=== PATIENT | female | born 1985 | race Hispanic/Latino ===

== ENCOUNTER 2020-01-20 16:38 | Outpatient (CLI) | payer SELFPAY ==
[2020-01-20 17:30] LABS: Basophils Absolute Auto 0.1 K/mm3 (0.0-0.1); Basophils Percent Auto 0.5 % (0.2-1.2); Eosinophils Absolute Auto 0.2 K/mm3 (0-0.3); Hematocrit 38.7 % (37.0-47.0); Hemoglobin 13.4 g/dL (12.0-15.0); Immature Granulocyte Absolute 0.03 K/mm3 (0.00-0.031); Immature Granulocyte Percent A 0.3 % (0-0.5); Lymphocytes Absolute Auto 3.18 K/mm3 (0.9-3.2); Lymphocytes Percent Auto 29.9 % (18.3-44.2); Mean Corpuscular HGB Conc 34.6 g/dl (32-36); Mean Corpuscular Hemoglobin 29.8 pg (26-34); Mean Platelet Volume 9.7 fl (7.4-10.4); Monocytes Absolute Auto 0.5 K/mm3 (0.1-0.6); Monocytes Percent Auto 4.9 % (2.6-8.5); Neutrophils Absolute Auto 6.6 K/mm3 (1.3-6.7); Neutrophils Percent Auto 62.4 % (45.5-73.1); Platelet Count Result 330 k/mm3 (150-375); Red Cell Distribution Width 12.8 % (11.5-14.5); White Blood Count 10.6 K/mm3 (4.5-10.0)
[2020-01-20 17:32] LABS: Add Urine Microscopic? NO; Appearance Urine Clear (Clear); Bilirubin Urine Negative (Negative); Blood Urine Negative (Negative); Color Urine Yellow (Yellow); Glucose Urine UA Negative (Negative); Ketones Urine Negative (Negative); Leukocyte Esterase Ur Negative LEU/UL (Negative); Nitrate Urine Negative (Negative); Protein Urine Negative (Negative); Specific Grav Ur 1.021 (1.001-1.035); Urobilinogen Urine Negative mg/dL (<2.0)
[2020-01-20 17:43] LABS: Partial Thromboplastin Time 30.1 SECONDS (22.3-36.8)
[2020-01-20 17:44] LABS: Alanine Aminotransferase 192 U/L (4-35); Albumin Level 4.7 g/dL (3.5-5.1); Alkaline Phosphatase 99 U/L (38-126); Anion Gap 9 mmol/L (8-16); Aspartate Amino Transferase 113 U/L (14-36); Bilirubin,Total 0.5 mg/dL (0.2-1.3); Blood Urea Nitrogen 14 mg/dL (7-17); Calcium 9.3 mg/dL (8.4-10.2); Carbon Dioxide 27 mmol/L (22-30); Chloride 104 mmol/L (98-107); Estimated Glomerular Filt Rate > 60; Glucose 110 mg/dL (65-105); Potassium 4.1 mmol/L (3.4-5.0); Sodium 140 mmol/L (137-145)
[2020-01-20 17:51] LABS: Prealbumin 24.4 mg/dL (17.6-36.0)
[2020-01-20 18:24] LABS: Vitamin D 25 Hydroxy 30.2 ng/mL
[2020-01-20 18:25] LABS: HIV 1/2 Ab P24 Ag Result Negative (Negative)
[2020-01-20 19:17] LABS: Hemoglobin A1C 5.1 % (<5.7)
[2020-01-21 11:14] LABS: Hepatitis B Surface Antigen Negative (Negative)
[2020-01-21 11:19] LABS: HAV RESULT Negative (Negative); Hepatitis B Core IgM Result Negative (Negative)
[2020-01-21 11:31] LABS: Hepatitis C Virus Antibody Negative (Negative)
== END 2020-01-20 16:39 | disposition home or self-care (01) ==
PROVIDERS: PCP Internal Medicine Infectious Disease; Visit Provider Orthopaedic Surgery
DX: M47.813 Spondylosis without myelopathy or radiculopathy, cervicothoracic region (principal)
CPT/HCPCS: 36415; 80053; 80074; 81003; 82248; 82306; 83036; 84134; 85025; 85610; 85730; 86703; 87081; G0432

== ENCOUNTER → 2020-04-20 10:13 | Outpatient (CLI) | payer OTHER, SELFPAY ==
--- NOTE | ~2020-04-20 | XR_ITS ---
EXAMINATION: XR cervical spine min 6V EXAM DATE: 04/20/2020 10:52 INDICATION: spondylosis w/o myelopathy. TECHNIQUE: Cervical spine frontal, lateral, lateral swimmers, and open-mouth odontoid projections. C omparison is made to prior examination from 04/16/2018. FINDINGS: Interval anterior and interbody fusion C4-6. There is mild disc disease at C3-4. The verte bral bodies are aligned in the AP dimension. Mild cervical arthropathy. The odontoid process is intac t. The lateral masses of C1 line up with C2. Prevertebral soft tissue and pre-dens space are within normal limits. IMPRESSION: 1. Intact C4-6 cervical fusion. 2. Mild spondylosis. Reviewed, dictated and finalized at location A. 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
== END ==
PROVIDERS: Visit Provider Orthopaedic Surgery
DX: M47.813 Spondylosis without myelopathy or radiculopathy, cervicothoracic region (principal)
CPT/HCPCS: 72052

== ENCOUNTER 2023-04-14 17:54 | Emergency (ER) | payer SELFPAY ==
[2023-04-14 18:15] VITALS: BP 121/82; PULSE 80; RESP 18; TEMP 36.4; O2SAT 100
--- NOTE | 2023-04-14 20:12 | PC.NURSE ---
pt left before seeing provider, reports symptoms resolving and they would like to follow up at PCP appointment tomorrow
== END 2023-04-14 20:12 | disposition left against medical advice (07) ==
LOC: ANHED 20:35
DX: O26.892 Other specified pregnancy related conditions, second trimester (principal); R10.9 Unspecified abdominal pain; Z3A.16 16 weeks gestation of pregnancy
CPT/HCPCS: 99199

== ENCOUNTER 2024-02-09 18:19 | Emergency (ER) | payer BC, SELFPAY ==
[2024-02-09 18:24] VITALS: BP 147/101; PULSE 106; RESP 15; TEMP 36.6; O2SAT 100
[2024-02-09 18:34] VITALS: BP 137/96; PULSE 110; RESP 22; TEMP 36.5; O2SAT 99
--- NOTE | 2024-02-09 19:15 | ED.ABDPAIN ---
HPI - Abdominal Pain General Chief Complaint: Abdominal Pain Stated Complaint: abd pain Time Seen by Provider: 02/09/24 19:06 Source: patient and family Mode of arrival: ambulatory Limitations: language barrier (Patient is Trinidadian-speaking but refuses translation services when they were offered, prefers her son to translate though she does have reasonable Argentine ability herself) History of Present Illness HPI narrative: Patient presents with upper abdominal pain that started Friday approximately 5:00 a.m.. Family had been at a republican earlier in the evening and she had been eating tacos when she started having these symptoms upon awakening which also include nausea and diarrhea. She denies any vomiting only the sensation that she might. She has lost count of the number of time she has had diarrhea but denies it being bloody. No preceding constipation. Last bowel movement was just a few minutes ago while in the emergency department. She has tried Imodium ED and Pepto-Bismol. History of a Caesarean section but no other abdominal surgeries. Denies any prior issues like this before. 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 Denies any alcohol. She had taken a few tablets of ibuprofen but denies having taken a lot either while she was feeling sick or preceding that. Denies steroids and marijuana. No dysuria or hematuria although she does have some urinary urgency and frequency. No fevers but she was feeling chilled. Last oral intake was 5:00 p.m. on Friday and she does not have an appetite. Related Data Allergies Allergy/AdvReac Type Severity Reaction Status Date / Time No Known Allergies Allergy Verified 02/09/24 18:26 [facility] Surgical History Surgical History History of section Social History Social History (Updated 02/09/24 @ 19:21 by Saritha Nolasco MD) Social History: Argentine as a 2nd language (Trinidadian speaking) Alcohol intake: never Living arrangements: with family Exam Narrative: GENERAL: well-nourished, and in no acute distress. HEAD: Normocephalic, atraumatic. EYES: Non injected, non icteric ENT: Nares clear, no rhinorrhea or epistaxis. NECK: Supple. CHEST: Speaking in full sentences. No respiratory distress. HEART: Regular rate and rhythm. . ABDOMEN: Soft, nondistended. Mild epigastric tenderness to palpation without rigidity or guarding. Not peritoneal. EXTREMITIES: Normal range of motion. No lower extremity edema. SKIN: Warm, dry, no rash. NEURO: No focal deficits. Alert and oriented x3. PSYCH: Normal mood and affect. Course Vital Signs Vital signs: Vital Signs Temperature 97.8 F 02/09/24 18:24 Pulse Rate 106 H 02/09/24 18:24 Respiratory Rate 15 02/09/24 18:24 Blood Pressure 147/101 H 02/09/24 18:24 Pulse Oximetry 100 02/09/24 18:24 Oxygen Delivery Room Air 02/09/24 18:24 Temperature 97.7 F 02/09/24 18:34 Pulse Rate 95 02/09/24 22:47 Respiratory Rate 16 02/09/24 22:47 Blood Pressure 113/92 H 02/09/24 22:47 Pulse Oximetry 99 02/09/24 22:47 Oxygen Delivery Room Air 02/09/24 18:24 MDM - Abdominal Pain MDM Narrative Medical decision making narrative: Patient presents with epigastric abdominal pain, nausea, and diarrhea since Friday. In the emergency department she is afebrile with vital signs notable for tachycardia and hypertension both sustained on repeat assessment 10 minutes later. The differential for acute ( less than 14d) diarrhea includes infectious etiologies (viral, preformed toxins, toxins formed after colonization, invasive bacteria, and parasites), medications, inflammatory causes (IBD, radiation enteritis, ischemic colitis, diverticulitis), malabsorption, secretory causes, or motility disorders. Will give IV fluids for tachycardia in addition to Zofran and famotidine. Slight anion gap but within norm glucose not frankly acidotic. She also has mild hyperalbuminemia suspect this to be to degree of hemoconcentration and mild dehydration. test negative. Patient is concerned about the medications that were ordered given that she is currently breast-feeding her infant. RN discussed with pharmacist and there seems to be some conflicting data it in the literature. Will give prochlorperazine instead. Patient is reassessed at 9:10 p.m.. She states she is feeling good, better. Still has not been able to provide urine sample. Patient reassessed at 10:10 p.m. she continues to feel good and sometimes have not recurred. Still unable to provide a urine sample however I have low suspicion that this was a urinary tract infection. Will discharge with PO prochlorperazine and return precautions. Differential Diagnosis Differential diagnosis: Likely abdominal pain, constipation, gastroenteritis, pancreatitis and other (Gastritis, acute viral syndrome) Lab Data Attestation: I reviewed the patient's lab results. Lab results narrative: Viral swab negative Mild leukocytosis 02/09/24 19:25 02/09/24 19:25 Labs: Lab Results 02/09/24 02/09/24 02/09/24 Range/Units 19:25 20:08 20:31 WBC 11.1 H (4.5-10.0) K/mm3 RBC 5.05 (4.2-5.4) M/mm3 Hgb 15.0 (12.0-15.0) g/dL Hct 44.3 (37.0-47.0) % MCV 87.7 (80-100) fl MCH 29.7 (26-34) pg MCHC 33.9 (32-36) g/dl RDW 14.0 (11.5-14.5) % Plt Count 374 (150-375) k/mm3 MPV 10.3 (7.4-10.4) fl Immature Gran % (Auto) 0.4 (0-0.5) % Neut % (Auto) 61.6 (45.5-73.1) % Lymph % (Auto) 28.5 (18.3-44.2) % [place] % (Auto) 6.5 (2.6-8.5) % Eos % (Auto) 2.5 (0-4.4) % Baso % (Auto) 0.5 (0.2-1.2) % Lymph # (Auto) 3.17 (0.9-3.2) K/mm3 [place] # (Auto) 0.7 H (0.1-0.6) K/mm3 Eos # (Auto) 0.3 (0-0.3) K/mm3 Baso # (Auto) 0.1 (0.0-0.1) K/mm3 Abs Immat Gran (auto) 0.04 H (0.00-0.031) K/mm3 Absolute Neuts (auto) 6.9 H (1.3-6.7) K/mm3 Absolute Nucleated RBC 0.000 (0.0-0.012) K/mm3 Nucleated RBC % 0.0 (0.0-0.2) % Sodium 141 (137-145) mmol/L Potassium 3.9 (3.4-5.0) mmol/L Chloride 107 (98-107) mmol/L Carbon Dioxide 18 L (22-30) mmol/L Anion Gap 16 H (4-12) mmol/L BUN 15 (7-17) mg/dL Creatinine 1.00 (0.7-1.0) mg/dL Estim Creat Clear Calc 66 ml/min Estimated GFR > 60 (59 - ) Glucose 94 (65-110) mg/dL Calcium 9.9 (8.4-10.2) mg/dL Magnesium 2.1 (1.6-2.3) mg/dL Total Bilirubin 0.9 (0.2-1.3) mg/dL AST 34 (14-36) U/L ALT 28 (6-35) U/L Alkaline Phosphatase 126 (38-126) U/L Total Protein 10.0 H (6.3-8.2) g/dL Albumin 5.3 H (3.5-5.1) g/dL Lipase 85 (23-300) U/L POC Urine HCG, Qual Negative (Negative) Influenza A (RT-PCR) Negative (Negative) Influenza B (RT-PCR) Negative (Negative) SARS-CoV-2 RNA (RT-PCR) Negative (Negative) Discharge Plan Discharge Clinical Impression: Acute diarrhea, Leukocytosis, Hyperalbuminemia Patient Disposition: Home, Self-Care Condition: Stable Instructions: Antibiotic Form, Acute Diarrhea (ED), Leukocytosis (ED) Additional Instructions: Rest and maintain your hydration. This is likely a virus that just needs to run its course. Follow up with your primary care physician. If you do not have one the name of a doctor is listed below. Alternatively, there is a provider that speaks Trinidadian if you prefer though I do not know if they are accepting patients. Her name is Destiney Angela ([phone]). Return to the emergency department with any new or worsening symptoms. A medication has been prescribed that may help. . Patient Language: Trinidadian Prescriptions: New doxylamine-pyridoxine (vit B6) 10-10 mg tablet,delayed release (DR/EC) 1 tablet PO BID PRN (Reason: nausea and vomiting) Qty: 14 0RF Follow-up/Referrals: Jake Bishop MD [Physician] - (Family practice) UNKNOWN,DOCTOR [Primary Care Provider] - Stand Alone Forms: Work/School Release IP Time of Disposition: 22:13
--- NOTE | 2024-02-09 19:25 | PC.NURSE ---
pt educated on need for a urine sample- patient unable to urinate at this time.
[2024-02-09 19:34] LABS: Basophils Absolute Auto 0.1 K/mm3 (0.0-0.1); Basophils Percent Auto 0.5 % (0.2-1.2); Eosinophils Absolute Auto 0.3 K/mm3 (0-0.3); Eosinophils Percent Auto 2.5 % (0-4.4); Hematocrit 44.3 % (37.0-47.0); Immature Granulocyte Absolute 0.04 K/mm3 (0.00-0.031); Immature Granulocyte Percent A 0.4 % (0-0.5); Lymphocytes Absolute Auto 3.17 K/mm3 (0.9-3.2); Lymphocytes Percent Auto 28.5 % (18.3-44.2); Mean Corpuscular HGB Conc 33.9 g/dl (32-36); Mean Corpuscular Hemoglobin 29.7 pg (26-34); Mean Corpuscular Volume 87.7 fl (80-100); Mean Platelet Volume 10.3 fl (7.4-10.4); Monocytes Absolute Auto 0.7 K/mm3 (0.1-0.6); Monocytes Percent Auto 6.5 % (2.6-8.5); Neutrophils Absolute Auto 6.9 K/mm3 (1.3-6.7); Neutrophils Percent Auto 61.6 % (45.5-73.1); Platelet Count Result 374 k/mm3 (150-375); Red Blood Count 5.05 M/mm3 (4.2-5.4); White Blood Count 11.1 K/mm3 (4.5-10.0)
--- NOTE | 2024-02-09 20:01 | PC.NURSE ---
Pharmacy called to verify if famotidine and zofran can be administered to pt. b/c she is . Bernadette, pharmacist to call this RN back with answer. Administration delayed at this time.
[2024-02-09 20:02] LABS: Alanine Aminotransferase 28 U/L (6-35); Albumin Level 5.3 g/dL (3.5-5.1); Alkaline Phosphatase 126 U/L (38-126); Anion Gap 16 mmol/L (4-12); Aspartate Amino Transferase 34 U/L (14-36); Bilirubin,Total 0.9 mg/dL (0.2-1.3); Blood Urea Nitrogen 15 mg/dL (7-17); Calcium 9.9 mg/dL (8.4-10.2); Carbon Dioxide 18 mmol/L (22-30); Chloride 107 mmol/L (98-107); Estimated CRCL calculation 66 ml/min; Estimated Glomerular Filt Rate > 60; Glucose 94 mg/dL (65-110); Lipase 85 U/L (23-300); Magnesium 2.1 mg/dL (1.6-2.3); Potassium 3.9 mmol/L (3.4-5.0); Sodium 141 mmol/L (137-145)
[2024-02-09] MEDS: SODIUM CHLORIDE 0.9% IV 1,000 ML 999 ML IV CONT (20:04)
--- NOTE | 2024-02-09 20:17 | PC.NURSE ---
Addendum entered by Ava De La Rosa RN 02/09/24 20:26: Pharmacist called back. Contradicting literature on if pepcid and zofran are ok to administer to nursing mothers. Md Nolasco notified. No meds administered at this time. Original Note: Per lainey pharmacist, pepcid ok to administer. Pharmacist to call back on zofran administration.
[2024-02-09 20:33] LABS: BEDSIDEPREGUCG Negative (Negative)
--- NOTE | 2024-02-09 20:38 | PC.NURSE ---
Pt states she cannot give urine sample at this time. Fluids still infusing.
--- NOTE | 2024-02-09 20:45 | PC.NURSE ---
Pt able to provide urine sample but did not make enough urine in the cup to send down for ordered UA. MD Nolasco aware.
[2024-02-09 20:49] LABS: Influenza A QL RT-PCR Negative (Negative); Influenza B QL RT-PCR Negative (Negative); SARS-CoV-2 RNA PCR Negative (Negative)
[2024-02-09] MEDS: PROCHLORPERAZINE EDISYLATE 10 MG/2 ML VIAL IV PUSH (20:51)
[2024-02-09 22:47] VITALS: BP 113/92; PULSE 95; RESP 16; O2SAT 99
== END 2024-02-09 22:54 | disposition home or self-care (01) ==
PROVIDERS: Emergency Provider Student in an Organized Health Care Education/Training Program
DX: R19.7 Diarrhea, unspecified (principal); D72.829 Elevated white blood cell count, unspecified; E88.09 Other disorders of plasma-protein metabolism, not elsewhere classified
CPT/HCPCS: 36415; 80053; 81025; 83690; 83735; 85025; 87636; 96361; 96374; 99284; J0780; J7030

== ENCOUNTER 2024-09-01 08:06 | Emergency (ER) | payer SELFPAY ==
--- NOTE | 2024-09-01 08:09 | ED_ITS ---
HPI - General Adult General Chief complaint: Abdominal Pain Stated complaint: pain in abdomen Time Seen by Provider: 09/01/24 08:08 History of Present Illness HPI narrative: Patient is a 39-year-old female presented complaint of epigastric abdominal pain. Pain began 2 days ago. Pain is worse after eating. Patient reports single episode of nonbloody emesis this morning. No previous abdominal surgeries. No history of similar pain. No additional complaints. Related Data Home Medications ?Medication ?Instructions ?Recorded ?Confirmed ?Last Taken ?Type No Home Medications 09/01/24 09/01/24 Unknown History Allergies Allergy/AdvReac Type Severity Reaction Status Date / Time No Known Allergies Allergy Verified 09/01/24 08:20 Review of Systems Review of Systems: CONSTITUTIONAL: Denies body aches, fever, chills, or sweats. EYES: Denies visual changes, redness, or discharge. ENT: Denies rhinorrhea, congestion, sore throat, or otalgia. CARDIOVASCULAR: Denies chest pain, palpitations, or edema. RESPIRATORY: Denies cough or dyspnea. GASTROINTESTINAL: Reports epigastric abdominal pain, nausea, vomiting, denies diarrhea. GENITOURINARY: Denies dysuria or hematuria. SKIN: Denies rash, itching, or wounds. MUSCULOSKELETAL: Denies back pain, joint pain, or myalgia. NEUROLOGIC: Denies headache, numbness, tingling, or weakness. PSYCH: Denies depression or anxiety. All systems reviewed & are unremarkable except as noted in HPI and below PMFSH Surgical History Surgical History History of section Social History Social History Social History: Danish as a 2nd language (Azeri speaking) Alcohol intake: never Living arrangements: with family Exam 2 Narrative: GENERAL: Well-appearing, well-nourished, and in no acute distress. HEAD: Normocephalic, atraumatic. EYES: EOMI. No redness or drainage. Conjunctivae normal. ENT: Mucous membranes pink and moist. Nares clear. No rhinorrhea. TMs normal bilaterally. Throat normal. Uvula midline. NECK: Normal AROM. Supple. No lymphadenopathy. CHEST: No respiratory distress. Clear to auscultation. HEART: Regular rate and rhythm. No murmur appreciated. Normal peripheral pulses. MUSCULOSKELETAL: No bony tenderness. EXTREMITIES: Normal range of motion. No edema. SKIN: Warm, dry, no rash. Capillary refill normal. Normal skin turgor. NEURO: No focal deficits. Alert and oriented x3. Gait steady. PSYCH: Normal affect. No signs of depression or anxiety. Const: Nutritional Appearance: well nourished Orientation/consciousness: patient oriented x3 Limitations: no limitations GI: GI Palp: Yes Soft to palpation, Yes Tenderness to palpation present (GI) ( epigastric), No Guarding due to palpation present (GI), No Rigid due to palpation and No Rebound tenderness present Auscultation: normal bowel sounds Course Course Level of Care: Express Care Visit Vital Signs Vital signs: Vital Signs Temperature 87.8 F L 09/01/24 08:19 Pulse Rate 69 09/01/24 08:19 Respiratory Rate 16 09/01/24 08:19 Blood Pressure 122/87 09/01/24 08:19 Pulse Oximetry 100 09/01/24 08:19 Oxygen Delivery Room Air 09/01/24 08:19 Temperature 87.8 F L 09/01/24 08:19 Pulse Rate 69 09/01/24 08:19 Respiratory Rate 16 09/01/24 08:19 Blood Pressure 122/87 09/01/24 08:19 Pulse Oximetry 100 09/01/24 08:19 Oxygen Delivery Room Air 09/01/24 08:19 Transfer Transfered to: [place] Transportation: Other ( POV) Transfer rationale: access higher level of care, further diagnostic workup. Accepting physician: Ricardo Rodgers comments: Aware of NPO status, go straight to ER Medical Decision Making Medical Records Medical records reviewed: Yes I reviewed the external patient's medical records. Vital Signs Vital Signs: Vital Signs Temperature 87.8 F L 09/01/24 08:19 Pulse Rate 69 09/01/24 08:19 Respiratory Rate 16 09/01/24 08:19 Blood Pressure 122/87 09/01/24 08:19 Pulse Oximetry 100 09/01/24 08:19 Oxygen Delivery Room Air 09/01/24 08:19 Temperature 87.8 F L 09/01/24 08:19 Pulse Rate 69 09/01/24 08:19 Respiratory Rate 16 09/01/24 08:19 Blood Pressure 122/87 09/01/24 08:19 Pulse Oximetry 100 09/01/24 08:19 Oxygen Delivery Room Air 09/01/24 08:19 Discharge Plan Discharge Clinical Impression: Acute epigastric pain Patient Disposition: Acute Care Hospital Condition: Stable Patient Language: Azeri Prescriptions: No Action No Home Medications Follow-up/Referrals: PHYSICIAN,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
[2024-09-01 08:19] VITALS: BP 122/87; PULSE 69; RESP 16; TEMP 36.4; O2SAT 100
== END 2024-09-01 08:34 | disposition short-term general hospital (02) ==
PROVIDERS: Emergency Provider Registered Nurse
DX: R10.13 Epigastric pain (principal)
CPT/HCPCS: 99212; G0463

== ENCOUNTER 2024-09-01 08:52 | Emergency (ER) | payer SELFPAY ==
--- OUTSIDE RECORDS SUMMARY | 2024-09-01 09:00 | XMS_ITS | Clinical Summary ---
Author Organization [facility] Address [address] [place] [address] Care Team Providers Care Cover Maker Name Role Phone [facility], [facility] Primary Care Pr ovider Source Comments [facility],non-owned Affiliates and Associated Physician Practices is amultiple site organization consisting of ambulatory clinics and hospital sitesin [place], [place], [place] and [place]. This disclosure is being madepursuant to the Care Everywhere program and may not contain all information available regarding this patient. Last updated 17.[facility] Allergies No known active allergies Medications * Be aware that medications may not be up to date on this document. Alwaysverify current medications with the patient. acetaminophen (Tylenol) 500 MG capsule Take 2 (two) capsules by mouth every 6 hours as needed for Fever or Pain 60 capsule 1 4 Active Additional Information Patient not taking.Reported on 10/03/2023 polyethylene glycol 3350 (Miralax) 17 GM/SCOOP powder Take 17 (seventeen) g by mouth once daily 119 g 4 Active Additional Information Patient not taking.Reported on 09/08/2023 ibuprofen (Motrin) 600 MG tablet Take 1 (one) tablet by mouth every 6 hours as needed for Pain 50 tablet 1 4 Active Additional Information Patient not taking.Reported on 10/03/2023 docusate sodium (Colace) 100 MG capsule Take 1 (one) capsule by mouth once daily 50 capsule 1 4 Active Additional Information Patient not taking.Reported on 09/08/2023 NIFEdipine CR osmotic 24hr (Adalat CC) 60 MG tablet Take 1 (one) tablet by mouth once daily 30 tablet 1 4 Active ibuprofen (Motrin) 600 MG tablet Take 1 (one) tablet by mouth every 6 hours as needed for Pain 40 tablet 1 4 Active Additional Information Patient not taking.Reported on 10/03/2023 docusate sodium (Colace) 100 MG capsule Take 1 (one) capsule by mouth 2 times daily 60 capsule 1 4 Active Additional Information Patient not taking.Reported on 09/08/2023 Active Problems Patient Care Coordination No te Formatting of this note migh t be different from the original. [employer] form completed. Diapers given. 07/22/2023, 08/06/23, 10/03/23 Problem Noted Date Diagnosed Date Chronic hypertension during , antepartu m 09/01/2023 Encounter for supervision of other normal in third trimester 08/21/2023 Otitis interna, left 07/25/2023 Overview (08/06/2023): L ear pain x 4 days L TM erythematous Amoxicillin x 10 days: Completed 08/06/23: Pain has resolved. Still having some noises in her ear when she bends over. Recommended either Zyrtec or Claritin daily. Assessment & Plan (08/06/2023 9:17 AM CDT): Pain has resolved. Still having some noises in her ear when she bends over. Recommended either Zyrtec or Claritin daily. Supervision of normal 07/25/2023 Overview (08/21/2023): Datinw US Labs: A-/I/-/-, HepC: NR SMA carrier screening: not collected Cystic Fibrosis: negative Gc/Chl/trich: -/-/- Hgb Electrophoresis: negative Urine Cx: negative NIPT: LR, female PAP: 02/19/23 NILM, HPV neg EPDS: 0 ASA: Rx sent 03/19/23 Anatomy scheduled 18-20 weeks 05/28/23 GCT: 101 3rd trimester: H/H/Ptl/HIV/Syphilis: 11.5/33.3/264/nr/nr Tdap given 07/21 Flu Vaccine, COVID booster: received 02/19/23 Rhogam given 07/22/23 GBS at 36 weeks MOC: undecided, continue to discuss [email or web address] handout provided in korean MOF: breast Discussed how to obtain breast pump through insurance MOD: desires TOLAC Assessment & Plan (08/21/2023 3:29 PM CDT): [email or web address] handout provided Discussed calling her insurance to obtain breast pump sooner than later, due to it taking some time. Assessment & Plan (08/06/2023 9:18 AM CDT): 3rd trimester labs reviewed and WNL UTI (urinary tract infection ) during , unspecified trimester 04/15/2023 Overview (05/27/2023): S/p Amoxicillin x7 days DIEGO 04/15 negative Assessment & Plan (04/15/2023 3:59 PM ASSOCIATE AUTOMATION ENGINEER): S/p antibiotics DIEGO sent today AMA (advanced maternal age) multigravida 35+ Overview (08/21/2023): AMA NIPT LR Taking ASA 162mg QD 08/06/23: Reports compliance with LD ASA Plan for Testing: Weekly BPP & NST starting at 34 weeks 08/21/23: Reports taking LD ASA daily Assessment & Plan (08/21/2023 3:27 PM CDT): Taking LD ASA daily Assessment & Plan (08/06/2023 9:21 AM CDT): Reports compliance with LD ASA Plan for Testing: Weekly BPP & NST starting at 34 weeks Assessment & Plan (04/15/2023 3:59 PM ASSOCIATE AUTOMATION ENGINEER): NIPT LR LD ASA rx resent Assessment & Plan (03/19/2023 12:26 PM ASSOCIATE AUTOMATION ENGINEER): 1. NIPT collected 03/19/23 2. ASA 162mg QD to be started at 12w, Rx'ed on 03/19/23 Spondylosis 03/19/2023 Overview (03/19/2023): 1. Spondylosis s/p diskectomy 1. Done at [facility] in 2019 2. Anterior cervical diskectomy and fusion cervical 4-5, 5-6 3. Should not be issue for epidural, however may need anesthesia consult in case of need for general anesthesia Subchorionic hematoma in first trimester 023 Overview (04/15/2023): 02/24/23: A subchorionic hemorrhage is present measuring 0.5 x 2.7 x 0.6 cm. 03/19/23: Denies vaginal bleeding 04/15/23: denies VB Assessment & Plan (04/15/2023 3:59 PM ASSOCIATE AUTOMATION ENGINEER): Denies VB Assessment & Plan (03/19/2023 12:24 PM ASSOCIATE AUTOMATION ENGINEER): Denies vaginal bleeding Positive urine drug screen 03/19/2023 Overview (03/19/2023): Cocaine + @ NOB. 03/19/23: Pt denies Cocaine Use. Pt educated on Risks of use including abruption, hypertension and . Assessment & Plan (03/19/2023 12:19 PM ASSOCIATE AUTOMATION ENGINEER): 03/19/23: Pt denies Cocaine Use. Pt educated on Risks of use including abruption, hypertension and . H/O forceps delivery in prior , current ly 05/09/2014 Overview (03/19/2023): 1. H/o operative delivery 1. G2 - forceps delivery for poor maternal effort, @ 39w4d Language barrier 05/09/2014 Overview (05/09/2014): Cape Verdean speaking Chronic hypertension complic ating or reason for care during 05/02/2014 Overview (08/21/2023): G2: PP Hypertension. Was instructed to take an antihypertensive, but pt declined medication. - Baseline PreE: CBC/CMP: WNL at NOB - 24hr urine: TLTC Taking LDASA testing not indicated in uncomplicated cHTN w/o meds 08/06/23: Normotensive and Assymptomtic 08/21/23: Sent to [facility] for Pre-E Work-up due to b/p's of 164/112 & 153/100 Assessment & Plan (08/21/2023 3:27 PM CDT): Sent to [facility] for Pre-E Work-up due to b/p's of 164/112 & 153/100 Assessment & Plan (08/06/2023 9:21 AM CDT): Normotensive and Assymptomtic Assessment & Plan (04/15/2023 4:00 PM ASSOCIATE AUTOMATION ENGINEER): -Normotensive -24 hour urine supplies provided today Assessment & Plan (03/19/2023 12:16 PM ASSOCIATE AUTOMATION ENGINEER): - Baseline PreE: CBC/CMP: WNL at NOB - Please provide patient with 24 hour urine collection supplies at next visit H/O: 08/20/2011 Overview (07/25/2023): 1. H/o CS x1 1. G1- pLTCS in 2006 for AOD at 6cm @ 40w 2. Successful x2 - @ [facility] 3. Done in [place], [place] - [facility]. Operative note (under media tab) wnl 4. Desires TOLAC, s/p counseling Rh negative state in antepartum period 2 Overview (07/25/2023): 1. Rh negative 1. Rhogam given 02/24/23 in the E.D. due to vaginal spotting 2. Rhogam given 07/22/23 at 28 weeks 3. Evaluate need for Rhogam PP Resolved Problems Problem Noted Date Diagnosed Date Resolved Date Hypertensive disorder 06/28/2023 06/28/20232023 Neuropathy 06/28/2023 06/28/2023 07/25/2023 Rhesus isoimmunization affecting 06/28/2023 06/28/2023 07/25/2023 Encounter for supervision of low-risk first in first trimester 03/19/2023 06/28/2023 Overview (05/27/2023): 1. Datinw US 2. Labs: A-/Imm/nr/-/-, HepC:nr 3. SMA carrier screening: not collected 4. Cystic Fibrosis: negative 5. Gc/Chl/trich: -/-/- 6. Hgb Electrophoresis: negative 7. Urine Cx: negative 8. NIPT: LR, female 9. PAP: 02/19/23 NILM, HPV neg 10. EPDS: 0 11. ASA: Rx sent 03/19/23 12. Anatomy scheduled 18-20 weeks 05/28/23 13. GCT/CBC/HIV/Syphilis at 28 weeks 14. Tdap after 28 weeks: 15. Flu Vaccine, COVID booster: received 02/19/23 16. Rhogam at 28 weeks 17. GBS at 36 weeks: 18. MOC: TBD 19. MOF: TBD 20. MOD: desires TOLAC Assessment & Plan (04/15/2023 4:01 PM ASSOCIATE AUTOMATION ENGINEER): -PNC up to date -CC: vaginal discharge. Reviewed normal physiologic changes in . Reviewed vulvar care guidelines. Encouraged to seek evaluation if odor or irritation develops. Assessment & Plan (03/19/2023 12:29 PM ASSOCIATE AUTOMATION ENGINEER): NIPT not collected Cyst of right ovary 03/19/2023 07/25/19 Overview (03/19/2023): 02/19/23: The right ovary appears normal and contains a simple cyst consistent with a corpus luteal cyst. Abnormal liver function 12/12/2021 06/28/2023 0408/2023 Nonalcoholic fatty liver 05/29/2020 06/28/2023 Chwbd-3-vmnwdsdtujl deficiency 05/21/2020 06/28/2023 07/25/2023 Overview (06/28/2023): seeing wave solder offbearer Obstructive sleep apnea syndrome 05/21/2020 06/28/1907/25/2023 Overview (06/28/2023): seeing wave solder offbearer Pulmonary hypertension 05/21/2020 06/28/202307/24 Overview (06/28/2023): getting echo per wave solder offbearer Cervical spine instability 01/31/2020 1 05/20/2022 Mixed hyperlipidemia 08/03/2019 06/28/2023 024 Steatosis of liver 01/05/2018 06/28/2023 Fibroid uterus 05/02/2014 07/25/2023 Supervision of other high-risk 08/20/2011 03/19/2023 Overview (02/05/2015): A-/I/-/-, NR Pap normal 09/05/13 GC/CT neg S/p flu GCT: 109 GBS neg 08/18 Immunizations Immunization Administration Dates Next Due COVID PFIZER 12+YR 30MCG/0.3mL 02/19/2023 INFLUENZA VACCINE, QUADR. (F LUZONE; FLULAVAL; FLUARIX; AFLURIA QUADRIVALENT; 6MO+), 0.5 ML (IIV4) 02/19/2023 Rho D Immune Globulin 08/28/2023, 024,02/24/2023,2014,09/08/2011 TDAP (7yrs+) 07/22/2023,06/20/2014 Family History Medical History Relation Name Comments Diabetes Other Twins Other Relation Name Status Comments Other Social History Tobacco Use Types Packs/Day Years Used Date Smoking Tobacco: Never Smokeless Tobacco: Never Tobacco Cessation:Counseling Given: Yes Alcohol Use Standard Drinks/Week Comments No 0 (1 standard drink = 0.6 oz pur e alcohol) AUDIT-C Answer Date Recorded Q1: How often do you have a drink containing alcohol? Never 08/26/2023 Q2: How many drinks containi ng alcohol do you have on a typical day when you are drinking? Patient does not drink Q3: How often do you have si x or more drinks on one occasion? Never 08/26/2023 Overall Financial Resource Strain (CARDIA) Answe r Date Recorded How hard is it for you to pa y for the very basics like food, housing, medical care, and heating? Somewhat hard 10/03/2023 [facility] of Occupat ional Health - Occupational Stress Questionnaire Answer Date Recorded Do you feel stress - tense, restless, nervous, or anxious, or unable to sleep at night because your mind is troubled all the time - these days? Only a little 10/03/2023 Hunger Vital Sign Answer Date Recorded Within the past 12 months, y ou worried that your food would run out before you got the money to buy more. Sometimes true Within the past 12 months, t he food you bought just didn't last and you didn't have money to get more. Sometimes true 07/2023 PRAPARE - Transportation Answer Date Re corded In the past 12 months, has l ack of transportation kept you from medical appointments or from getting medications? No 07/2023 In the past 12 months, has l ack of transportation kept you from meetings, work, or from getting things needed for daily living? No 10/03/2023 Housing Stability Vital Sign Answer William e Recorded In the last 12 months, was t here a time when you were not able to pay the mortgage or rent on time? No 10/03/2023 In the last 12 months, how many places have you lived? 1 10/03/2023 In the last 12 months, was t here a time when you did not have a steady place to sleep or slept in a halfway (including now)? Yes 10/03/2023 Rowe Depression Scale Answer Date Recorded Rowe Depression Scale Total 0 10/03/2023 The thought of harming myself has occurred to me . Never 10/03/2023 Comments No Sex and Gender Information Value Date Recorded Sex Assigned at Female 09/01/2023 7:08 PM CDT Legal Sex Female 7:02 PM ASSOCIATE AUTOMATION ENGINEER Gender Identity Not on file Sexual Orientation Not on file Last Filed Vital Signs Vital Sign Reading Time Taken Comments Blood Pressure 129/86 10/03/2023 12:48 PM CDT Pulse 75 10/03/2023 12:48 PM CDT Temperature 36.6 C (97.8 F) 09/03/2023 4:00 PM CDT Respiratory Rate 20 09/03/2023 4:00 PM CDT Oxygen Saturation 100% 09/03/2023 4:00 PM CDT Inhaled Oxygen Concentration - - Weight 88 kg (194 lb) 10/03/2023 12:48 PM CDT Height 152.4 cm (5') 08/21/2023 3:45 PM CDT Body Mass Index 37.89 08/21/2023 3:45 PM CDT Plan of Treatment Upcoming Encounters Date Type Department Care Team (Late st Contact Info) Description 10/04/2024 2:15 PM CDT Appointment [facility] MATERNAL/ EVALUATION UNIT [address] [place] [address] Health Maintenance Due Date Last Done Comments HEPATITIS B VACCINE (1 of 3 - 19+ 3-dose series) 2005 COVID-19 VACCINE ( - season) 2023 02/19/2023, 10/10/2020, 09/19/2020 DEPRESSION SCREENING 03/31/2024 10/03/2023 INFLUENZA VACCINE (Season Ended) 2024 02/19/2023, 12/12/2021, 01/13/2018, Additional history exists PAP with HPV 02/20/2028 02/19/2023 DTAP/TDAP/TD VACCINES (3 - Td or Tdap) 07/21/2033 07/22/2023, 06/20/2014 ZOSTER VACCINE (1 of 2) 2036 HEPATITIS C SCREENING Completed 02/19/2023 HIV SCREENING Completed 07/22/2023, 02/19/2023 HIB VACCINE Aged Out No longer eligi ble based on patient's age to complete this topic HPV VACCINE Aged Out No longer eligi ble based on patient's age to complete this topic MENINGOCOCCAL (Group B) VACCINE SHARED DECISION-MAKING Aged Out No longer eligible based on patient's age to complete this topic MENINGOCOCCAL GROUPS A/C/Y/W VACCINE Aged Out No longer eligible based on patient's age to complete this topic PNEUMOCOCCAL VACCINE Aged Out No long er eligible based on patient's age to complete this topic Medical Devices Implanted Type Area Watch Commander Device Identifier Shelf Expiration Date Model / Serial / Lot Graft Bone 1-4mm 15ml Crsh Fsh Frzn Canc Implanted:Qty : 1 on 01/31/2020 by Gurjit Munguia MD at [facility] N/A: Spine Cervical [employer] 07/08/2022 [id number] / / [id number] Kit Bngf 20mm 12mm Infs 2xs Spne Rhbmp-2 Implanted:Qty : 1 on 01/31/2020 by Gurjit Munguia MD at [facility] N/A: Spine Cervical Medtronic Sofamor [employer] 11/28/2020 [id number] / / [id number] Sub Bngf Progenix Dbm Bvn Clgn Ptty 1ml Implanted:Qty : 1 on 01/31/2020 by Gurjit Munguia MD at [facility] N/A: Spine Cervical Spinal [employer]raft [employer] 10/09/2020 [id number] / / [id number] F3d Cervical 14.5mm X12mm Implanted:Qty : 2 on 01/31/2020 by Gurjit Munguia MD at [facility] N/A: Spine Cervical [employer] 06/13/2024 [id number] / / [id number] Screw 4mm 15mm Slf-Tap Va Spne Crv Ant Implanted:Qty : 2 on 01/31/2020 by Gurjit Mnuguia MD at [facility] N/A: Spine Cervical Medtronic Sofamor [employer] [id number] / / Screw 4mm 14mm Slf-Tap Va Spne Crv Ant Implanted:Qty : 4 on 01/31/2020 by Gurjit Munguia MD at [facility] N/A: Spine Cervical Medtronic Sofamor [employer] [id number] / / Plate Lck Spne Crv Ant 40mm Atlnts Implanted:Qty : 1 on 01/31/2020 by Gurjit Munguia MD at [facility] N/A: Spine Cervical Medtronic Sofamor [employer]ane[employer] [id number] / / Procedures Procedure Name Priority Date/Time Associated Diagnosis Comments HIV-1 HIV-2 ANTIBODY + HIV P24 AG PANEL Routine 07/22/2023 4:09 PM CDT 28 weeks gestation of PAP IG LB+HPV APTIMA Routine 02/19/2023 9:22 AM ASSOCIATE AUTOMATION ENGINEER H/O: HEPATITIS C ANTIBODY Routine 02/19/2023 9:21 AM ASSOCIATE AUTOMATION ENGINEER H/O: from Last 3 Months or Most Recently Relevant to Health Maintenance Results * HIV-1 HIV-2 ANTIBODY + HIV P24 AG PANEL (07/22/2023 4:09 PM CDT) HIV1/2 Ab + P24 Ag Non Reactive Non Reactive 07/22/2023 5:03 PM CDT [facility] Blood BLOOD SPECIMEN / Unknown Venipuncture / Unknown 07/22/2023 4:09 PM CDT 07/22/2023 4:19 PM CDT Narrative [facility] - 07/22/2023 5:03 PM CDT No Laboratory evidence of HIV infection. Sadia Jewell MD LAB - CHEMISTRY ORDERABLES Final Result [facility] [address] [place] [address] * PAP IG LB+HPV APTIMA (02/19/2023 9:22 AM ASSOCIATE AUTOMATION ENGINEER) Diagnosis Comment 02/24/2023 11:06 PM ASSOCIATE AUTOMATION ENGINEER [facility] ([facility]) Comment:NEGATIVE FOR INTRAEP ITHELIAL LESION OR MALIGNANCY. Specimen Adequacy Comment 023 11:06 PM ASSOCIATE AUTOMATION ENGINEER [facility] ([facility]) Comment: Satisfactory for evaluation. Endocervical and/or squamous metaplastic cells (endocervical component) are present. Performed by Comment 02/24/2023 11:06 PM ASSOCIATE AUTOMATION ENGINEER [facility] ([facility]) Comment:Yue Horne Cytotec hnologist (ASCP) Comment . 02/24/2023 11:06 PM ASSOCIATE AUTOMATION ENGINEER [facility] ([facility]) Note Comment 02/24/2023 11:06 PM ASSOCIATE AUTOMATION ENGINEER [facility] ([facility]) Comment: The Pap smear is a screening test designed to aid in the detection of premalignant and malignant conditions of the uterine cervix. It is not a diagnostic procedure and should not be used as the sole means of detecting cervical cancer. Both false-positive and false-negative reports do occur. IGLBP CPT Code Automation Comment 02/24/2023 11:06 PM ASSOCIATE AUTOMATION ENGINEER [facility] ([facility]) Comment: This liquid based ThinPrep(R) pap test was screened with the use of an image guided system. Human papillomavirus Aptima Negative Negative 02/24/2023 11:06 PM [facility] ([facility]) Comment: This nucleic acid amplification test detects fourteen high-risk HPV types (16,18,31,33,35,39,45,51,52,56,58,59,66,68) without differentiation. Pathology/Cytolo gy PART OF UTERINE CERVIX / Unknown Collection / Unknown 02/19/2023 9:22 AM ASSOCIATE AUTOMATION ENGINEER 02/19/2023 10:14 AM ASSOCIATE AUTOMATION ENGINEER Narrative [facility] ([facility]) - 02/24/2023 11:06 PM ASSOCIATE AUTOMATION ENGINEER Performed at: 01 - [facility] [employer] [address] [place] [id number] [address] Engineer Freight: Carlos Alonso MD, Phone: [phone] Performed at: [address] [id number] Road Engineer Freight: Emiliana Watson MD, Phone: [phone] Performed at: 03 - [address] [id number] Road Engineer Freight: Emiliana Watson MD, Phone: [phone] Specimen Comment: No. of containers..01 ThinPrep Vial Israel Choudhury MD LAB - PATHOLOGY/CYTOLOGY ORDERAB LES Final Result [facility] ([facility]) [address] [place] [address] * HEPATITIS C ANTIBODY (02/19/2023 9:21 AM ASSOCIATE AUTOMATION ENGINEER) HCV Antibody Screen Non Reactive Non Reactive 02/19/2023 10:57 AM ASSOCIATE AUTOMATION ENGINEER [facility] Blood BLOOD SPECIMEN / Unknown Venipuncture / Unknown 02/19/2023 9:21 AM ASSOCIATE AUTOMATION ENGINEER 02/19/2023 9:49 AM ASSOCIATE AUTOMATION ENGINEER Narrative [facility] - 02/19/2023 10:57 AM ASSOCIATE AUTOMATION ENGINEER Non Reactive - Antibodies to Hepatitis C virus (HCV) were not detected, result does not exclude early acute HCV infection. Israel Choudhury MD LAB - CHEMISTRY ORDERABLES Final Result [facility] [address] [place] [address] from Last 3 Months or Most Recently Relevant to Health Maintenance Insurance [facility] [place] [address] * Guarantor: PASTORA LENZ Account Type Relation to Patient Date of Phone Billing Address Personal/Family [address] [place] [address] Advance Directives * Full Code (Latest Code Status on File) Date Activated Date Inactivated Comments 08/26/2023 7:53 PM 08/29/2023 1:31 PM * Full Code Date Activated Date Inactivated Comments 08/21/2023 5:44 PM 08/26/2023 7:53 PM * Full Code Date Activated Date Inactivated Comments 01/31/2020 12:16 PM 01/31/2020 7:21 PM * Full Code Date Activated Date Inactivated Comments 09/07/2014 4:08 PM 09/09/2014 3:34 PM * FULL RESUSCITATION Date Activated Date Inactivated Comments 09/07/2011 10:44 AM 09/10/2011 2:21 AM Care Teams Cover Maker Relationship Specialty Start Date End Date [facility] [address] [place] [address] PCP - General Family Medicine 02/01/23
--- OUTSIDE RECORDS SUMMARY | 2024-09-01 09:00 | XMS_ITS | Data Portability ---
Author Organization [facility] Address [address] [place] [address] Care Team Providers Care Gl[facility]ier Stained Glass Name Role Phone HORACIO TUTTLE Primary Care Provider Assessment Encounter Date Assessment Date Assessment LastModified by Organization Details LastModified Time 10/18/2021 10/18/2021 this is a 36 yea r old RHD female who presents with a comminuted fracture of the right radial head with displacement greater than 2mm. Based on the xrays, the fracture is in greater than 3 different pieces and at that point we would likely be discussing a radial head arthroplasty. She needs a CT scan of the elbow for further classification of the fracture so she can get surgery due to the displacement of the fracture and her block to motion. I do not perform this particular procedure, as such, I will refer the patient to ortho at another hospital for definitive treatment. [email or web address] Not available 10/25/2021 14:27:15 Plan of Treatment Reminders Order Date Submit Date Provider Last Modified By Organization Details Last Modified Time Details Appointments None recorded. Lab test, urine 2022 023 daniel In-Office Order, Internal Use Only DO Not Attach Compendium DO Not Attach Compendium, Do Not Delete/merge, [id number] 3 13:04:22 lipid panel, serum 2021 022 [facility], [address] [place] [address], [address], [place], [address], 08:20:23 TSH, ultra-sensi tive, serum 2021 022 [facility], [address], [address], [place], [address], 2 08:20:24 CBC w/ auto diff 2021 [facility], [address], [address], [place], [address], 2 08:20:22 CMP, serum or plasma 2021 [facility], [address], [address], [place], [address], 2 08:20:22 LAVONNE (antinuclea r antibodies) panel, serum 2020 [facility] ([facility] [address] [place], [address], 1 17:08:46 Referral orthopedic surgeon referral - comminuted right radial head fracture with block to ROM 2021 [facility], [address] [place] [address], [address] [place] [address], [place], [address], 3 12:23:12 Procedures None recorded. Surgeries None recorded. Imaging None recorded. Medication Orders 28 mg iron-800 mcg tablet 2022 023 [facility], [address] [place] [address], [id number], 3 13:38:39 atorvastati n 20 mg tablet 2021 [facility], [address] [place] [address], [id number], 2 12:41:19 chlorthalid one 25 mg tablet 2021 [facility], [address] [place], [place], [id number], 12:41:20 Patient TargetsNo targets recorded. Patient Instructions Encounter Date Encounter Id Patient Instructions Last Modified By Organization Details Last Modified Time 12/12/2021 [id number] vacuna contra la influenza (gripe): instrucciones de cuidado - [influenza (flu) vaccine: care instructions] [email or web address] Not available 12/12/2021 12:35:36 Uncontrolled Hypertension potential risks, heart attack, , stroke, kidney failure etc. Hypertension is the silent Killer Take your Hypertension medication daily keep appointments stop concentrated sugars--follow 1500 meal plan exercise 50-60 minutes daily on most days see eye doctor once a year see dentist every 6 months Avoid all breads, potatoes, cereal, pasta, rice, margarine, refined sugars, milk yogurt, ice cream, juices, soda (including diet), beer, and manmade or manufactured desserts. Enjoy steak, fish, chicken (no skin), pork, butter, vegetables, beans, nuts, whole eggs, cheese (low fat or skim), cream in your coffee. [email or web address] Not available 12/12/2021 12:32:20 01/29/2023 [id number] aprenda acerca d el peso saludable - [learning about healthy weight] [email or web address] Not available 01/29/2023 13:04:20 ndice de masa corporal: instrucciones de cuidado - [body mass index: care instructions] [email or web address] Not available 01/29/2023 13:04:20 ectopic symptoms and follow up start vitamins Nutritional guidelines No drugs, alcohol, medications Any vaginal bleeding with severe abdominal cramping to E/R Immediately [email or web address] Not available 01/29/2023 13:03:06 Reason for Referral Orthopedic Surgeon Referral for Closed fracture of head of right radius Right comminuted radial head fracture with block to motion comminuted right radial head fracture with block to ROM Referring Physician: Aayush Woodward, Orthopedic Surgery, Encounter Date: 10/18/2021 Results Created Date Observation Date Name Description Value Unit Range Abnormal Flag Note LastModifiedBy Organization Detail LastModifiedTime 04/27/19 21 04/27/2020 PT/IN R PT 10.0 secon ds 9.3-11 .1 Not Available [facility] (Lab) [address], [place], [address], 04/27/2020 19:27:41 04/27/19 21 04/27/2020 PT/IN R INR 1.0 0.4-2. 0 Not Available [facility] (Lab) [address], [place], [address], 04/27/2020 19:27:41 04/27/19 21 04/27/2020 PT/IN R [email or web address] Please note Refere nce Range has change d Not Available [facility] (Lab) [address], [place], [address], 04/27/2020 19:27:41 04/27/19 21 04/27/2020 CBC w/ auto diff WBC 9.4 K/uL 3.4-10 .8 Not Available [facility] (Lab) [address], [place], [address], 04/27/2020 19:29:38 04/27/19 21 04/27/2020 CBC w/ auto diff red blood count 4.3 M/uL 4.2-5. 4 Not Available [facility] (Lab) [address], [place], [address], 04/27/2020 19:29:38 04/27/19 21 04/27/2020 CBC w/ auto diff hemoglobin 12.7 g/dL 11.5-1 5.5 Not Available [facility] (Lab) [address] [place], [address], 04/27/2020 19:29:38 04/27/19 21 04/27/2020 CBC w/ auto diff hematocrit 38.3 % 36.0-4 8.0 Not Available [facility] (Lab) [address] [place], [address], 04/27/2020 19:29:38 04/27/19 21 04/27/2020 CBC w/ auto diff MCV 89 fL 80-95 Not Available [facility] (Lab) [address], [place], [address], 04/27/2020 19:29:38 04/27/19 21 04/27/2020 CBC w/ auto diff MCH 29 pg 27-32 Not Available [facility] (Lab) [address], [place], [address], 04/27/2020 19:29:38 04/27/19 21 04/27/2020 CBC w/ auto diff MCHC 33 g/dL 32-36 Not Available [facility] (Lab) [address], [place], [address], 04/27/2020 19:29:38 04/27/19 21 04/27/2020 CBC w/ auto diff platelets 319 K/uL 155-37 9 Not Available [facility] (Lab) [address], [place], [address], 04/27/2020 19:29:38 04/27/19 21 04/27/2020 CBC w/ auto diff RDW 12.7 % 11.5-1 4.5 Not Available [facility] (Lab) [address] [facility], [place], [address], 04/27/2020 19:29:38 04/27/19 21 04/27/2020 CBC w/ auto diff MPV 9.9 fL 8.9-12 .7 Not Available [facility] (Lab) [address] [facility] [address], [place], [address], 04/27/2020 19:29:38 04/27/19 21 04/27/2020 CBC w/ auto diff neutrophils absolute 4.9 K/uL 1.4-7. 0 Not Available [facility] (Lab) [address] [place], [address], 04/27/2020 19:29:38 04/27/19 21 04/27/2020 CBC w/ auto diff lymphs (absolute) 3.6 K/uL 0.7-3. 1 high Not Available [facility] (Lab) [address] [place], [address], 04/27/2020 19:29:38 04/27/19 21 04/27/2020 CBC w/ auto diff monocytes (absolute) 0.6 K/uL 0.1-0. 9 Not Available [facility] (Lab) [address] [facility] [address], [place], [address], 04/27/2020 19:29:38 04/27/19 21 04/27/2020 CBC w/ auto diff eos (absolute) 0.2 K/uL 0.0-0. 4 Not Available [facility] (Lab) [address], [place], [address], 04/27/2020 19:29:38 04/27/19 21 04/27/2020 CBC w/ auto diff baso (absolute) 0.0 K/uL 0.0-0. 3 Not Available [facility] (Lab) [address] [facility] [address], [place], [address], 04/27/2020 19:29:38 04/27/19 21 04/27/2020 CBC w/ auto diff neut % 52.0 % 40.0-7 4.0 Not Available [facility] (Lab) [address] [place], [address], 04/27/2020 19:29:38 04/27/19 21 04/27/2020 CBC w/ auto diff lymphs % 38.7 % 14.0-4 6.0 Not Available [facility] (Lab) [address] [place], [address], 04/27/2020 19:29:38 04/27/19 21 04/27/2020 CBC w/ auto diff mono % 6.5 % 4.0-12 .0 Not Available [facility] (Lab) [address] [place], [address], 04/27/2020 19:29:38 04/27/19 21 04/27/2020 CBC w/ auto diff eos % 2 % 0-5 Not Available [facility] (Lab) [address] [place], [address], 04/27/2020 19:29:38 04/27/19 21 04/27/2020 CBC w/ auto diff baso % 0.4 % 0.0-1. 0 Not Available [facility] (Lab) [address], [place], [address], 04/27/2020 19:29:38 04/27/19 21 04/27/2020 BMP, serum or plasm a glucose, serum 100 mg/dL 65-99 high Not Available [facility] ([facility]) [address], [place], [address], 04/27/2020 20:16:08 04/27/19 21 04/27/2020 BMP, serum or plasm a BUN 13 mg/dL 8-26 Not Available [facility] (Lab) [address], [place], [address], 04/27/2020 20:16:08 04/27/19 21 04/27/2020 BMP, serum or plasm a creatinine, serum 0.75 mg/dL 0.50-1 .40 Not Available [facility] (Lab) [address] [place], [address], 04/27/2020 20:16:08 04/27/19 21 04/27/2020 BMP, serum or plasm a BUN/creatnin e ratio 17.7 Not Available [facility] ([facility]) [address] [place], [address], 04/27/2020 20:16:08 04/27/19 21 04/27/2020 BMP, serum or plasm a sodium, serum 137.5 mEq/L 136.0- 144.0 Not Available [facility] (Lab) [address] [place], [address], 04/27/2020 20:16:08 04/27/19 21 04/27/2020 BMP, serum or plasm a potassium, serum 3.9 mmol/ L 3.5-5. 3 Not Available [facility] (Lab) [address], [place], [address], 04/27/2020 20:16:08 04/27/19 21 04/27/2020 BMP, serum or plasm a chloride, serum 103 mmol/ l 101-11 1 Not Available [facility] (Lab) [address] [place], [address], 04/27/2020 20:16:08 04/27/19 21 04/27/2020 BMP, serum or plasm a carbon dioxide total 23.9 mmol/ L 21.0-3 2.0 Not Available [facility] (Lab) [address] [place], [address], 04/27/2020 20:16:08 04/27/19 21 04/27/2020 BMP, serum or plasm a aniongp 15.0 mmol/ L Not Available [facility] (Lab) [address] [place], [address], 04/27/2020 20:16:08 04/27/19 21 04/27/2020 BMP, serum or plasm a calcium, serum 9.6 mg/dL 8.2-10 .0 Not Available [facility] (Lab) [address] [place], [address], 04/27/2020 20:16:08 04/27/19 21 04/27/2020 BMP, serum or plasm a osmol 275.0 mOsm/ L 275.0- 301.0 Not Available [facility] (Lab) [address] [place], [address], 04/27/2020 20:16:08 04/27/19 21 04/27/2020 BMP, serum or plasm a eGFR, non- AM 95 mL/mi n/1.7 3/m >=60 Not Available [facility] (Lab) [address], [place], [address], 04/27/2020 20:16:08 04/27/19 21 04/27/2020 hepat ic funct ion panel , serum total protein 8.1 g/dL 6.7-8. 2 Not Available [facility] (Lab) [address] [place], [address], 04/27/2020 20:16:09 04/27/19 21 04/27/2020 hepat ic funct ion panel , serum albumin, serum 4.8 g/dL 3.5-5. 5 Not Available [facility] (Lab) [address], [place], [address], 04/27/2020 20:16:09 04/27/19 21 04/27/2020 hepat ic funct ion panel , serum bilt 0.3 mg/dL 0.0-1. 2 Not Available [facility] (Lab) [address], [place], [address], 04/27/2020 20:16:09 04/27/19 21 04/27/2020 hepat ic funct ion panel , serum bild <0.20 mg/dL 0.10-0 .50 Not Available [facility] (Lab) [address], [place], [address], 04/27/2020 20:16:09 04/27/19 21 04/27/2020 hepat ic funct ion panel , serum AST 62.6 U/L 10.0-4 2.0 high Not Available [facility] (Lab) [address] [place], [address], 04/27/2020 20:16:09 04/27/19 21 04/27/2020 hepat ic funct ion panel , serum ALT 106.7 U/L 10.0-6 0.0 high Not Available [facility] (Lab) [address] [place], [address], 04/27/2020 20:16:09 04/27/19 21 04/27/2020 hepat ic funct ion panel , serum alk phos 99.0 IU/L 42.0-1 21.0 Not Available [facility] (Lab) [address] [place], [address], 04/27/2020 20:16:09 04/27/19 21 04/27/2020 hepat ic funct ion panel , serum agratio 1.5 Not Available [facility] (Lab) [address], [place], [address], 04/27/2020 20:16:09 04/27/19 21 04/28/2020 HbA1c (hemo globi n A1c), blood hemoglobin A1C 5.2 % 4.8-5. 6 . Predi abete s: 5.7 - 6.4 Diabe ann: >6.4 Glyce liz contr ol for adult s with diabe ann: <7.0 Not Available [facility] (Lab) [address], [place], [address], 04/28/2020 05:11:15 04/27/19 21 04/28/2020 iron + total iron- ирина ng capac ity (TIBC ), serum iron bind.cap.(TI BC) 361 ug/dL 250-45 0 Not Available [facility] (Lab) [address] [place], [address], 04/28/2020 08:16:22 04/27/19 21 04/28/2020 iron + total iron- ирина ng capac ity (TIBC ), serum UIBC 304 ug/dL 131-42 5 Not Available [facility] (Lab) [address] [place], [address], 04/28/2020 08:16:22 04/27/19 21 04/28/2020 iron + total iron- ирина ng capac ity (TIBC ), serum iron, serum 57 ug/dL 27-159 Not Available [facility] (Lab) [address] [place], [address], 04/28/2020 08:16:22 04/27/19 21 04/28/2020 iron + total iron- ирина ng capac ity (TIBC ), serum iron saturation 16 % 15-55 Not Available [facility] (Lab) [address] [place], [address], 04/28/2020 08:16:22 04/27/19 21 04/28/2020 LAVONNE (anti nucle ar antib odies ) panel , serum anti-DNA (ds) Ab qn INVALD IU/mL Repea tedly unabl e to obtai n valid resul ts. This may be due to inter - feren ce from immun e compl exing or other immun oglob ulin inter actio ns. Sugge st repea t on a fresh speci men in 2 to 4 weeks . Negat bria <5 Equiv ocal 5 - 9 Posit bria >9 Not Available [facility] (Lab) [address] [place], [address], 04/28/2020 15:10:06 04/27/19 21 04/28/2020 LAVONNE (anti nucle ar antib odies ) panel , serum spud driller antibodies INVALD ai Repea tedly unabl e to obtai n valid resul ts. This may be due to inter - feren ce from immun e compl exing or other immun oglob ulin inter actio ns. Sugge [facility] repea t on a fresh speci men in 2 to 4 weeks . Not Available [facility] (Lab) [address] [place], [address], 04/28/2020 15:10:06 04/27/19 21 04/28/2020 LAVONNE (anti nucle ar antib odies ) panel , serum okeefe antibodies INVALD ai Repea tedly unabl e to obtai n valid resul ts. This may be due to inter - feren ce from immun e compl exing or other immun oglob ulin inter actio ns. Sugge st repea t on a fresh speci men in 2 to 4 weeks . Not Available [facility] (Lab) [address] [place], [address], 04/28/2020 15:10:06 04/27/19 21 04/28/2020 LAVONNE (anti nucle ar antib odies ) panel , serum antisclerode rma-70 antibodies INVALD ai Repea tedly unabl e to obtai n valid resul ts. This may be due to inter - feren ce from immun e compl exing or other immun oglob ulin inter actio ns. [facility]ge [facility] repea t on a fresh speci men in 2 to 4 weeks . Not Available [facility] (Lab) [address] [place], [address], 04/28/2020 15:10:06 04/27/19 21 04/28/2020 LAVONNE (anti nucle ar antib odies ) panel , serum sjogren's anti-ss-A INVALD ai Repea tedly unabl e to obtai n valid resul ts. This may be due to inter - feren ce from immun e compl exing or other immun oglob ulin inter actio ns. Sugge st repea t on a fresh speci men in 2 to 4 weeks . Not Available [facility] (Lab) [address] [place], [address], 04/28/2020 15:10:06 04/27/19 21 04/28/2020 LAVONNE (anti nucle ar antib odies ) panel , serum sjogren's anti-ss-B INVALD ai Repea tedly unabl e to obtai n valid resul ts. This may be due to inter - feren ce from immun e compl exing or other immun oglob ulin inter actio ns. [facility]ge st repea t on a fresh speci men in 2 to 4 weeks . Not Available [facility] (Lab) [address] [place], [address], 04/28/2020 15:10:06 04/27/19 21 04/28/2020 LAVONNE (anti nucle ar antib odies ) panel , serum antichromati n antibodies INVALD ai Repea tedly unabl e to obtai n valid resul ts. This may be due to inter - feren ce from immun e compl exing or other immun oglob ulin inter actio ns. [facility]ge st repea t on a fresh speci men in 2 to 4 weeks . Not Available [facility] (Lab) [address] [place], [address], 04/28/2020 15:10:06 04/27/19 21 04/28/2020 LAVONNE (anti nucle ar antib odies ) panel , serum anti-refugio-1 INVALD ai Repea tedly unabl e to obtai n valid resul ts. This may be due to inter - feren ce from immun e compl exing or other immun oglob ulin inter actio ns. Sugge st repea t on a fresh speci men in 2 to 4 weeks . Not Available [facility] (Lab) [address] [place], [address], 04/28/2020 15:10:06 04/27/19 21 04/28/2020 LAVONNE (anti nucle ar antib odies ) panel , serum anti-centrom ere B antibodies INVALD ai Repea tedly unabl e to obtai n valid resul ts. This may be due to inter - feren ce from immun e compl exing or other immun oglob ulin inter actio ns. Sugge st repea t on a fresh speci men in 2 to 4 weeks . Not Available [facility] (Lab) [address] [place], [address], 04/28/2020 15:10:06 04/27/19 21 04/28/2020 LAVONNE (anti nucle ar antib odies ) panel , serum see below: [facility] nt[facility] [employer]a se [facility] iatio n ----- ----- ----- ----- ----- ----- ----- ----- ----- ----- ----- ----- Condi tion Frequ ency ----- ----- ----- ----- - ----- ----- ----- ----- ---- ----- ---- Antin uclea r Antib ken, SLE, mixed conne ctive Direc t (LAVONNE- D) tissu e disea ses ----- ----- ----- ----- - ----- ----- ----- ----- ---- ----- ---- dsDNA SLE 40 - 60% ----- ----- ----- ----- - ----- ----- ----- ----- ---- ----- ---- Chrom atin Drug induc ed SLE 90% SLE 48 - 97% ----- ----- ----- ----- - ----- ----- ----- ----- ---- ----- ---- SSA (Ro) SLE 25 - 35% Sjogr en's Syndr ome 40 - 70% Neona imelda Lupus 100% ----- ----- ----- ----- - ----- ----- ----- ----- ---- ----- ---- SSB (La) SLE 10% Sjogr en's Syndr ome 30% ----- ----- ----- ----- - ----- ----- ----- ----- --- ----- ---- Sm (anti -Charles h) SLE 15 - 30% ----- ----- ----- ----- - ----- ----- ----- ----- --- ----- ---- GLASS CUT OFF SUPERVISOR Mixed Conne ctive Tissu e Disea se 95% (U1 nRNP, SLE 30 - 50% anti- ribon ucleo prote in) Polym yosit is and/o r [place] tomyo sitis 20% ----- ----- ----- ----- - ----- ----- ----- ----- ---- ----- ---- Scl-7 0 (anti DNA Scler oderm a (diff use) 20 - 35% topoi chandni ase) Crest 13% ----- ----- ----- ----- - ----- ----- ----- ----- ---- ----- ---- Refugio-1 Polym yosit is and/o r [place] tomyo sitis 20 - 40% ----- ----- ----- ----- - ----- ----- ----- ----- ---- ----- ---- Centr omere B Scler oderm a - Crest varia nt 80% Not Available [facility] (Lab) [address], [place], [address], 04/28/2020 15:10:06 04/27/19 21 04/28/2020 actin mechelle h muscl e Ab, serum actin (smooth muscle) antibody 13 units 0-19 Negat bria 0 - 19 Weak posit bria 20 - 30 Moder ate to stron g posit bria >30 . Actin Antib odies are found in 52-85 % of patie nts with autoi mmune hepat itis or chron ic activ e hepat itis and in 22% of patie nts with prima ry bilia ry cirrh osis. Not Available [facility] (Lab) [address], [place], [address], 04/28/2020 16:11:59 04/27/19 21 04/28/2020 alpha 1 antit rypsi n pheno typin g, serum or plasm a [id number] trypsin, serum 83 mg/dL 100-18 8 low Not Available [facility] (Lab) [address], [place], [address], 04/28/2020 16:12:00 04/27/19 21 04/28/2020 mitoc hondr ial Ab, serum mitochondria l (M2) antibody <20.0 units 0.0-20 .0 Negat bria 0.0 - 20.0 Equiv ocal 20.1 - 24.9 Posit bria >24.9 . Mitoc hondr ial (M2) Antib odies are found in 90-96 % of patie nts with prima ry bilia ry cirrh osis. Not Available [facility] (Lab) [address], [place], [address], 04/28/2020 16:12:04 04/27/19 21 04/28/2020 gamma -glut amyl trans feras e (ggt) , serum GGT 56 IU/L 0-60 Not Available [facility] (Lab) [address] [place], [address], 04/28/2020 16:12:05 04/27/19 21 04/28/2020 liver -kidn ey micro some Ab, serum liver-kidney microsomal Ab 2.5 units 0.0-20 .0 Negat bria 0.0 - 20.0 Equiv ocal 20.1 - 24.9 Posit bria >24.9 . LKM type 1 antib odies are detec po in patie nts with autoi mmune hepat itis type 2 and in up to 8% of patie nts with chron ic HCV infec tion. Not Available [facility] (Lab) [address] [place], [address], 04/28/2020 16:12:06 04/27/19 21 04/28/2020 cerul oplas min, serum ceruloplasmi n 26.7 mg/dL 19.0-3 9.0 Not Available [facility] (Lab) [address] [place], [address], 04/28/2020 16:12:09 05/18/19 21 05/22/2020 LAVONNE (anti nucle ar antib odies ) panel , serum anti-DNA (ds) Ab qn INVALD IU/mL Repea tedly unabl e to obtai n valid resul ts. This may be due to inter - feren ce from immun e compl exing or other immun oglob ulin inter actio ns. [facility]ge [facility] repea t on a fresh speci men in 2 to 4 weeks . Negat bria <5 Equiv ocal 5 - 9 Posit bria >9 Not Available [facility] (Lab) [address] [place], [address], 05/22/2020 17:08:46 18 21 05/22/2020 LAVONNE (anti nucle ar antib odies ) panel , serum spud driller antibodies INVALD ai Repea tedly unabl e to obtai n valid resul ts. This may be due to inter - feren ce from immun e compl exing or other immun oglob ulin inter actio ns. Sugge st repea t on a fresh speci men in 2 to 4 weeks . Not Available [facility] (Lab) [address] [place], [address], 05/22/2020 17:08:46 05/18/19 21 05/22/2020 LAVONNE (anti nucle ar antib odies ) panel , serum okeefe antibodies INVALD ai Repea tedly unabl e to obtai n valid resul ts. This may be due to inter - feren ce from immun e compl exing or other immun oglob ulin inter actio ns. Sugge st repea t on a fresh speci men in 2 to 4 weeks . Not Available [facility] (Lab) [address] [place], [address], 05/22/2020 17:08:46 05/18/19 21 05/22/2020 LAVONNE (anti nucle ar antib odies ) panel , serum antisclerode rma-70 antibodies INVALD ai Repea tedly unabl e to obtai n valid resul ts. This may be due to inter - feren ce from immun e compl exing or other immun oglob ulin inter actio ns. Sugge st repea t on a fresh speci men in 2 to 4 weeks . Not Available [facility] (Lab) [address] [place], [address], 05/22/2020 17:08:46 05/18/19 21 05/22/2020 LAVONNE (anti nucle ar antib odies ) panel , serum sjogren's anti-ss-A INVALD ai Repea tedly unabl e to obtai n valid resul ts. This may be due to inter - feren ce from immun e compl exing or other immun oglob ulin inter actio ns. [facility]ge st repea t on a fresh speci men in 2 to 4 weeks . Not Available [facility] (Lab) [address] [place], [address], 05/22/2020 17:08:46 05/18/19 21 05/22/2020 LAVONNE (anti nucle ar antib odies ) panel , serum sjogren's anti-ss-B INVALD ai Repea tedly unabl e to obtai n valid resul ts. This may be due to inter - feren ce from immun e compl exing or other immun oglob ulin inter actio ns. Sugge st repea t on a fresh speci men in 2 to 4 weeks . Not Available [facility] (Lab) [address], [place], [address], 05/22/2020 17:08:46 05/18/19 21 05/22/2020 LAVONNE (anti nucle ar antib odies ) panel , serum antichromati n antibodies INVALD ai Repea tedly unabl e to obtai n valid resul ts. This may be due to inter - feren ce from immun e compl exing or other immun oglob ulin inter actio ns. Sugge st repea t on a fresh speci men in 2 to 4 weeks . Not Available [facility] (Lab) [address] [place], [address], 05/22/2020 17:08:46 05/18/19 21 05/22/2020 LAVONNE (anti nucle ar antib odies ) panel , serum anti-refugio-1 INVALD ai Repea tedly unabl e to obtai n valid resul ts. This may be due to inter - feren ce from immun e compl exing or other immun oglob ulin inter actio ns. Sugge st repea t on a fresh speci men in 2 to 4 weeks . Not Available [facility] (Lab) [address] [place], [address], 05/22/2020 17:08:46 05/18/19 21 05/22/2020 LAVONNE (anti nucle ar antib odies ) panel , serum anti-centrom ere B antibodies INVALD ai Jessa aldo unabl e to obtai n valid resul ts. This may be due to inter - feren ce from immun e compl exing or other immun oglob ulin inter actio ns. Sugge st repea t on a fresh speci men in 2 to 4 weeks . Not Available [facility] (Lab) [address] [place], [address], 05/22/2020 17:08:46 05/18/1905/22/2020 LAVONNE (anti nucle ar antib odies ) panel , serum see below: [facility] Autoa ntibo dy Disea se Assoc iatio n ----- ----- ----- ----- ----- ----- ----- ----- ----- ----- ----- ----- Condi tion Frequ ency ----- ----- ----- ----- - ----- ----- ----- ----- ---- ----- ---- Antin uclea r Antib ken, SLE, mixed conne ctive Direc t (LAVONNE- D) tissu e disea ses ----- ----- ----- ----- - ----- ----- ----- ----- ---- ----- ---- dsDNA SLE 40 - 60% ----- ----- ----- ----- - ----- ----- ----- ----- ---- ----- ---- Chrom atin Drug induc ed SLE 90% SLE 48 - 97% ----- ----- ----- ----- - ----- ----- ----- ----- ---- ----- ---- SSA (Ro) SLE 25 - 35% Sjogr en's Syndr ome 40 - 70% Neona imelda Lupus 100% ----- ----- ----- ----- - ----- ----- ----- ----- ---- ----- ---- SSB (La) SLE 10% Sjogr en's Syndr ome 30% ----- ----- ----- ----- - ----- ----- ----- ----- --- ----- ---- Sm (anti -Charles h) SLE 15 - 30% ----- ----- ----- ----- - ----- ----- ----- ----- --- ----- ---- GLASS CUT OFF SUPERVISOR Mixed Conne ctive Tissu e Disea se 95% (U1 nRNP, SLE 30 - 50% anti- ribon ucleo prote in) Polym yosit is and/o r [place] tomyo sitis 20% ----- ----- ----- ----- - ----- ----- ----- ----- ---- ----- ---- Scl-7 0 (anti DNA Scler oderm a (diff use) 20 - 35% topoi chandni ase) Crest 13% ----- ----- ----- ----- - ----- ----- ----- ----- ---- ----- ---- Refugio-1 Polym yosit is and/o r [place] tomyo sitis 20 - 40% ----- ----- ----- ----- - ----- ----- ----- ----- ---- ----- ---- Centr omere B Scler oderm a - Crest varia nt 80% Not Available [facility] (Lab) [address] [place], [address], 05/22/2020 17:08:46 05/18/19 21 05/23/2020 alpha -1-an titry psin (aat) pheno type, serum xmctj-7-bmka trypsin, serum 83 mg/dL 100-18 8 low Perfo rmed at: CB Not Available [facility] (Lab) [address] [place], [address], 05/23/2020 16:11:45 05/18/19 21 05/23/2020 alpha -1-an titry psin (aat) pheno type, serum phenotype (pi) MZ Pheno type Jas ation A-1-A T Teresita ntrat ion* Incid ence % % of MM (Typi rachael Range ) MM 86.5% 100% (96 - 189) MS 8.0% 86% (83 - 161) MZ 3.9% 61% (60 - 111) FM 0.4% 100% (93 - 191) SZ 0.3% 41% (42 - 75) SS 0.1% 64% (62 - 119) ZZ 0.05% 19% (16 - 38) FS 0.05% 70% (70 - 128) FZ Unkno wn 46% (44 - 88) FF Unkno wn Unkno wn *A-1- AT teresita ntrat ion in the homoz ygous MM pheno type is taken as the refer humblee vicky garcia Perce nt defic iency in each pheno type is repor po relat bria to this refer ence. Range s used to confi rm pheno type. Perfo rmed at: BN Not Available [facility] (Lab) [address] [place], [address], 05/23/2020 16:11:45 12/13/19 22 12/13/2021 CBC WITH DIFFE RENTI AL/PL ATELE T WBC 9.8 x10e3 /uL 3.4-10 .8 Not Available [facility] ([facility]) [address] [facility], [place], [address], 12/13/2021 08:20:22 12/13/19 22 12/13/2021 CBC WITH DIFFE RENTI AL/PL ATELE T RBC 4.25 x10e6 /uL 3.77-5 .28 Not Available [facility] ([facility]) [address] [place], [address], 12/13/2021 08:20:22 12/13/19 22 12/13/2021 CBC WITH DIFFE RENTI AL/PL ATELE T hemoglobin 13.0 g/dL 11.1-1 5.9 Not Available [facility] ([facility]) [address] [facility], [place], [address], 12/13/2021 08:20:22 12/13/19 22 12/13/2021 CBC WITH DIFFE RENTI AL/PL ATELE T hematocrit 37.7 % 34.0-4 6.6 Not Available [facility] ([facility]) [address] [place], [address], 12/13/2021 08:20:22 12/13/19 22 12/13/2021 CBC WITH DIFFE RENTI AL/PL ATELE T MCV 89 fL 79-97 Not Available [facility] ([facility]) [address] [place], [address], 12/13/2021 08:20:22 12/13/19 22 12/13/2021 CBC WITH DIFFE RENTI AL/PL ATELE T MCH 30.6 pg 26.6-3 3.0 Not Available [facility] ([facility]) [address] [place], [address], 12/13/2021 08:20:22 12/13/19 22 12/13/2021 CBC WITH DIFFE RENTI AL/PL ATELE T MCHC 34.5 g/dL 31.5-3 5.7 Not Available [facility] ([facility]) [address] [facility], [place], [address], 12/13/2021 08:20:22 12/13/19 22 12/13/2021 CBC WITH DIFFE RENTI AL/PL ATELE T RDW 12.8 % 11.7-1 5.4 Not Available [facility] ([facility]) [address] [facility], [place], [address], 12/13/2021 08:20:22 12/13/19 22 12/13/2021 CBC WITH DIFFE RENTI AL/PL ATELE T platelets 329 x10e3 /uL 150-45 0 Not Available [facility] ([facility]) [address] [facility], [place], [address], 12/13/2021 08:20:22 12/13/19 22 12/13/2021 CBC WITH DIFFE RENTI AL/PL ATELE T neutrophils 63 % not estab. Not Available [facility] ([facility]) [address] [facility], [place], [address], 12/13/2021 08:20:22 12/13/19 22 12/13/2021 CBC WITH DIFFE RENTI AL/PL ATELE T lymphs 28 % not estab. Not Available [facility] ([facility]) [address] [facility], [place], [address], 12/13/2021 08:20:22 12/13/19 22 12/13/2021 CBC WITH DIFFE RENTI AL/PL ATELE T monocytes 6 % not estab. Not Available [facility] ([facility]) [address] [place], [address], 12/13/2021 08:20:22 12/13/19 22 12/13/2021 CBC WITH DIFFE RENTI AL/PL ATELE T eos 2 % not estab. Not Available [facility] ([facility]) [address] [place], [address], 12/13/2021 08:20:22 12/13/19 22 12/13/2021 CBC WITH DIFFE RENTI AL/PL ATELE T basos 1 % not estab. Not Available [facility] ([facility]) [address] [facility], [place], [address], 12/13/2021 08:20:22 12/13/19 22 12/13/2021 CBC WITH DIFFE RENTI AL/PL ATELE T immature cells SENIOR SOFTWARE ENGINEERING MANAGER Not Available [facility] ([facility]) [address] [place], [address], 12/13/2021 08:20:22 12/13/19 22 12/13/2021 CBC WITH DIFFE RENTI AL/PL ATELE T neutrophils (absolute) 6.2 x10e3 /uL 1.4-7. 0 Not Available [facility] ([facility]) [address] [place], [address], 12/13/2021 08:20:22 12/13/19 22 12/13/2021 CBC WITH DIFFE RENTI AL/PL ATELE T lymphs (absolute) 2.8 x10e3 /uL 0.7-3. 1 Not Available [facility] ([facility]) [address] [place], [address], 12/13/2021 08:20:22 12/13/19 22 12/13/2021 CBC WITH DIFFE RENTI AL/PL ATELE T monocytes(ab solute) 0.6 x10e3 /uL 0.1-0. 9 Not Available [facility] ([facility]) [address] [place], [address], 12/13/2021 08:20:22 12/13/19 22 12/13/2021 CBC WITH DIFFE RENTI AL/PL ATELE T eos (absolute) 0.2 x10e3 /uL 0.0-0. 4 Not Available [facility] ([facility]) [address] [facility], [place], [address], 12/13/2021 08:20:22 12/13/19 22 12/13/2021 CBC WITH DIFFE RENTI AL/PL ATELE T baso (absolute) 0.1 x10e3 /uL 0.0-0. 2 Not Available [facility] ([facility]) [address] [facility], [place], [address], 12/13/2021 08:20:22 12/13/19 22 12/13/2021 CBC WITH DIFFE RENTI AL/PL ATELE T immature granulocytes 0 % not estab. Not Available [facility] ([facility]) [address] [facility], [place], [address], 12/13/2021 08:20:22 12/13/19 22 12/13/2021 CBC WITH DIFFE RENTI AL/PL ATELE T immature grans (abs) 0.0 x10e3 /uL 0.0-0. 1 Not Available [facility] ([facility]) [address] [facility], [place], [address], 12/13/2021 08:20:22 12/13/19 22 12/13/2021 CBC WITH DIFFE RENTI AL/PL ATELE T NRBC SENIOR SOFTWARE ENGINEERING MANAGER Not Available [facility] ([facility]) [address] [facility], [place], [address], 12/13/2021 08:20:22 12/13/19 22 12/13/2021 CBC WITH DIFFE RENTI AL/PL ATELE T hematology comments: SENIOR SOFTWARE ENGINEERING MANAGER Not Available [facility] ([facility]) [address] [place], [address], 12/13/2021 08:20:22 12/13/19 22 12/13/2021 COMP. METAB OLIC PANEL (14) glucose 81 mg/dL 65-99 Not Available [facility] ([facility]) [address] [facility] [place], [address], 12/13/2021 08:20:22 12/13/19 22 12/13/2021 COMP. METAB OLIC PANEL (14) BUN 9 mg/dL 6-20 Not Available [facility] ([facility]) [address] [place], [address], 12/13/2021 08:20:22 12/13/19 22 12/13/2021 COMP. METAB OLIC PANEL (14) creatinine 0.79 mg/dL 0.57-1 .00 Not Available [facility] ([facility]) [address] [facility] [place], [address], 12/13/2021 08:20:22 12/13/19 22 12/13/2021 COMP. METAB OLIC PANEL (14) eGFR 100 mL/mi n/1.7 3 >59 Not Available [facility] ([facility]) [address] [facility] [place], [address], 12/13/2021 08:20:22 12/13/19 22 12/13/2021 COMP. METAB OLIC PANEL (14) BUN/creatini ne ratio 11 9-23 Not Available [facility] ([facility]) [address] [place], [address], 12/13/2021 08:20:22 12/13/19 22 12/13/2021 COMP. METAB OLIC PANEL (14) sodium 140 mmol/ L 134-14 4 Not Available [facility] ([facility]) [address] [place], [address], 12/13/2021 08:20:22 12/13/19 22 12/13/2021 COMP. METAB OLIC PANEL (14) potassium 4.3 mmol/ L 3.5-5. 2 Not Available [facility] ([facility]) [address] [place], [address], 12/13/2021 08:20:22 12/13/19 22 12/13/2021 COMP. METAB OLIC PANEL (14) chloride 104 mmol/ L 96-106 Not Available [facility] ([facility]) [address] [place], [address], 12/13/2021 08:20:22 12/13/19 22 12/13/2021 COMP. METAB OLIC PANEL (14) carbon dioxide, total 23 mmol/ L 20-29 Not Available [facility] ([facility]) [address] [place], [address], 12/13/2021 08:20:22 12/13/19 22 12/13/2021 COMP. METAB OLIC PANEL (14) calcium 9.5 mg/dL 8.7-10 .2 Not Available [facility] ([facility]) [address] [place], [address], 12/13/2021 08:20:22 12/13/19 22 12/13/2021 COMP. METAB OLIC PANEL (14) protein, total 7.9 g/dL 6.0-8. 5 Not Available [facility] ([facility]) [address] [place], [address], 12/13/2021 08:20:22 12/13/19 22 12/13/2021 COMP. METAB OLIC PANEL (14) albumin 4.8 g/dL 3.8-4. 8 Not Available [facility] ([facility]) [address] [place], [address], 12/13/2021 08:20:22 12/13/19 22 12/13/2021 COMP. METAB OLIC PANEL (14) globulin, total 3.1 g/dL 1.5-4. 5 Not Available [facility] ([facility]) [address] [place], [address], 12/13/2021 08:20:22 12/13/19 22 12/13/2021 COMP. METAB OLIC PANEL (14) A/G ratio 1.5 1.2-2. 2 Not Available [facility] ([facility] [address] [facility] [place], [address], 12/13/2021 08:20:22 12/13/19 22 12/13/2021 COMP. METAB OLIC PANEL (14) bilirubin, total 0.3 mg/dL 0.0-1. 2 Not Available [facility] ([facility] [address] [facility] [place], [address], 12/13/2021 08:20:22 12/13/19 22 12/13/2021 COMP. METAB OLIC PANEL (14) alkaline phosphatase 90 IU/L 44-121 Not Available [facility] ([facility]) [address] [facility] [place], [address], 12/13/2021 08:20:22 12/13/19 22 12/13/2021 COMP. METAB OLIC PANEL (14) AST (SGOT) 43 IU/L 0-40 above high normal Not Available [facility] ([facility]) [address] [facility] [place], [address], 12/13/2021 08:20:22 12/13/19 22 12/13/2021 COMP. METAB OLIC PANEL (14) ALT (SGPT) 46 IU/L 0-32 above high normal Not Available [facility] ([facility]) [address] [facility] [place], [address], 12/13/2021 08:20:22 12/13/19 22 12/13/2021 LIPID PANEL cholesterol, total 182 mg/dL 100-19 9 Not Available [facility] ([facility]) [address] [facility] [place], [address], 12/13/2021 08:20:23 12/13/19 22 12/13/2021 LIPID PANEL triglyceride s 151 mg/dL 0-149 above high normal Not Available [facility] ([facility]) [address] [place], [address], 12/13/2021 08:20:23 12/13/19 22 12/13/2021 LIPID PANEL HDL cholesterol 42 mg/dL >39 Not Available [facility] ([facility]) [address] [place], [address], 12/13/2021 08:20:23 12/13/19 22 12/13/2021 LIPID PANEL VLDL cholesterol rachael 27 mg/dL 5-40 Not Available [facility] ([facility]) [address] [place], [address], 12/13/2021 08:20:23 12/13/19 22 12/13/2021 LIPID PANEL LDL chol calc ([facility]) 113 mg/dL 0-99 above high normal Not Available [facility] ([facility]) [address] [place], [address], 12/13/2021 08:20:23 12/13/19 22 12/13/2021 LIPID PANEL comment: SENIOR SOFTWARE ENGINEERING MANAGER Not Available [facility] ([facility]) [address] [facility], [place], [address], 12/13/2021 08:20:23 12/13/19 22 12/13/2021 TSH RFX ON ABNOR MAL TO FREE T4 TSH 1.510 uIU/m L 0.450- 4.500 Not Available [facility] ([facility]) [address] [place], [address], 12/13/2021 08:20:24 01/30/20 23 01/29/2023 pregn shaun test, urine HCG positi ve Not Available In-Office Order Internal Use Only DO Not Attach Compendium DO Not Attach Compendium, Do Not Delete/merge, [id number] 01/29/2023 12:37:40 04/27/19 21 04/27/2020 US, liver EXAMIN ATION: LIMITE D ULTRAS OUND OF THE LIVER ACCESS ION: [id number] EXAM DATE: 7:02 AM REASON FOR EXAM: [id number] 006: Elevat ed liver enzyme s level COMPAR RIYA: None TECHNI QUE: Sonogr aphic graysc frankie images of the liver in multip le projec tions. Dopple r used to assess vascul ature. FINDIN GS: Diffus abel increa sed hepati c echoge nicity with distal loss of acoust ic signal , compat ible with diffus e hepati c steato sis. Normal hepato pedal flow. The main portal vein. No intrah epatic biliar y dilata tion or mass. Hepati c length 22.2 cm. This indica ann hepato megaly . IMPRES BREANNA: 1. Findin gs concer richy for hepato megaly and diffus e hepati c steato sis. No suspic ious lesion or biliar y dilata tion. READ BY: CINDY BALDERRAMA MD Date: 2020 07:50 [email or web address] [facility] (Rad) [address], [place], [address], 05/02/2020 17:30:47 05/18/1905/18/2020 XR, chest , 2 view Examin ation: Chest 2 View Histor y: Shortn ess of breath DATE/T EWELINA: 2:56 PM Compar riya: None Techni que: PA and latera l views were obtain ed. Findin gs: ACDF hardwa re. Heart size, medias tinal contou rs and pulmon ernestine vascul ature are within normal limits . No pulmon ernestine consol idatio n, pleura l effusi on or pneumo thorax . No acute osseou s abnorm ality. Impres breanna: No acute chest findin gs. READ BY: CALISTA KULKARNI Date: 2020 15:16 [email or web address] [facility] ([facility]) [address], [place], [address], 05/22/2020 11:01:58 06/07/1905/17/2020 US, elast ogram No observ ation record ed. BARCODE [facility] ([employer]) [address], [place], [address], 06/06/2020 09:28:59 10/19/19 22 10/09/2021 XR, hand No observ ation record ed. BARCODE Not Available 2021 13:38:55 10/19/19 22 10/09/2021 XR, forea rm No observ ation record ed. BARCODE Not Available 2021 13:38:55 10/19/19 22 10/09/2021 XR, elbow No observ ation record ed. BARCODE Not Available 2021 13:38:55 10/19/19 22 10/09/2021 CT, maxil lofac ial, w/o contr ast No observ ation record ed. BARCODE Not Available 2021 13:38:55 10/19/19 22 10/09/2021 CT, head, w/o contr ast No observ ation record ed. BARCODE Not Available 2021 13:38:55 10/19/19 22 10/09/2021 CT, cervi rachael spine , w/o contr ast No observ ation record ed. BARCODE Not Available 2021 13:38:55 Result Notes None recorded. Problems Name Problem SNOMED Code Status Onset Date Resolution Date Notes Provider Name and Address Organization Details Recorded Time Steatoti c liver disease 651824229 Active 2017 Gonzalo Powell MA null, [place] - [facility] 2 12:12:27 Umbilica l hernia 112851106 Active 2017 JANE Munoz-THERESA Attn: Katharina deandre,[address], [place], [address], [facility] 2 12:25:44 Emory francisco [id number] Completed 201710/04/2019 Lia Ray RN null, [place] - [facility] 0 16:13:48 Mixed hyperlip idemia 956844708 Active 2019 Gonzalo Powell [place] null, [place] - [facility] 2 12:12:27 COVID-19 612065891 [facility] Attn: Katharina carrera,[address], [place], [address], [place] - [facility] 2 12:25:44 Body mass index 40+ - severely obese 273064299 [facility] 2020 [facility] Attn: Katharina carrera,[address], [place], [address], [place] - [facility] 2 12:25:44 Alpha-1- antitryp sin deficien cy 60835708 Active 2020 seeing pulmonolo gist Gonzalo Powell MA null, MD - [facility] 2 12:12:36 Obstruct bria sleep apnea syndrome 27605357 Active 2020 seeing pulmonolo gist Gonzalo Powell MA null, [place] - [facility] 2 12:12:27 Pulmonar y hyperten breanna 74881063 Active 2020 getting echo per pulmonolo gist [facility] Attn: Katharina carrera,[address], [place], [address], [place] - [facility] 2 12:25:44 Non-alco holic fatty liver 104243817 Active 2020 Gonzalo Powell MA null, [place] - [facility] 2 12:12:27 Abnormal liver function 05234682 Active 2021 [facility] Attn: Katharina carrera,[address], [place], [address], [place] - [facility] 2 12:31:26 Noncompl iance with treatmen t 2538495 Active 2021 Horacio Tuttle [facility] Attn: Katharina carrera,[address], [place], [address], [place] - [facility] 2 12:34:02 Otitis media 70357158 Completed 04/28/2015 Marika Betancour t null[place] - [facility] 6 11:15:42 Tonsilli tis 79958160 Completed 04/28/2015 Marika Betancour t [place] [facility] 6 11:15:42 Postpart um state 50990470 Completed 07/29/2016 Lia Ray RN [place] [facility] 7 10:55:34 Vaginal lesion 318665105 Completed 07/29/2016 Lia Ray RN [place] [facility] 7 10:55:03 RhD negative 955243608 Completed 06/24/2018 Lia Ray RN [place] [facility] 9 10:45:35 Hyperten sive disorder 70416673 Active Gonzalo Powell [place] null, [place] - [facility] 2 12:12:27 Hyperlip idemia 19306942 Completed 08/03/2019 JANE Munoz-BC Attn: Sonin g,[address], [place], [address], [place] - [facility] 0 15:39:52 Obesity 909778804 Active Gonzalo Powell [place] null, [place] - [facility] 2 12:12:27 Dizzines s 792887228 Completed 07/29/2016 Lia Ray RN [place] [facility] 7 10:55:11 Chronic allergic otitis media 99001806 Completed 07/29/2016 Lia Ray RN [place] [facility] 7 10:55:27 Headache 13490253 Completed 07/29/2016 Lia Ray RN [place] [facility] 7 10:54:54 Chronic gastriti s 2625583 Active Gonzalo Powell [place], [place] [facility] 2 12:12:27 Pain in left arm 444868792 Completed 07/29/2016 Lia Ray RN [place] - [facility] 7 10:54:58 Neuropat hy 737905224 Completed 10/04/2019 Lia Ray RN null, [place] - [facility] 0 16:13:53 Acute left otitis media 064914699 Completed 07/29/2016 Lia Ray RN [place] [facility] 7 10:54:48 Acute sinusiti s 98516696 Completed 07/29/2016 Lia Ray RN [place] [facility] 7 10:54:41 Upper respirat ory infectio n 90872579 Completed 11/17/2014 Marika Betancour t [place] [facility] 6 11:15:42 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 Procedures Surgical History Date Name Laterality Status Provider Name and Address Organization Details Recorded Time 0 cervical laminectomy completed YANNICK CORADO NP [address] [place], [address], [facility] - [facility] 04/27/2020 16:26:53 8 Date of Last Pap Smear completed Lia Ray RN MD - [facility] 10/04/2019 16:15:11 7 I&D completed MARINO Munoz Attn: Accounting,[address], [place], [address], [place] - [facility] 02/14/2017 15:06:38 7 Control Implant Removal completed MARINO Munoz Attn: Accounting,[address], [place], [address], [place] - [facility] 10/24/2016 16:17:10 5 Control Implant Insertion completed MARINO Munoz Attn: Accounting,[address], [place], [address], [place] - [facility] 10/14/2014 13:14:06 7 Caesarean Section completed JACEY Razo [place] - [facility] 03/09/2014 12:19:50 7 delivery completed Rosana Newton MD - [facility] 08/26/2018 15:29:08 Imaging Results None recorded. Procedure Notes None recorded. Medical Equipment None Reported. Allergies No known drug allergies Medications Name Sig Start Date Stop Date Status Note LastModified by Organization Details LastModified Time eq stool softener 100 mg caps active Not Available Not Available Not Available nitrofura ntoin monohydra te/macroc rystals 100 mg caps active Not Available Not Available Not Available nifedipin e er 30 mg tb24 active Not Available Not Available Not Available ferrous sulfate 325 (65 fe) mg tabs active Not Available Not Available Not Available ibuprofen 600 mg tabs 06/08 completed Not Available Not Available Not Available preplus 27-1 mg tabs active Not Available Not Available Not Available celecoxib 200 mg capsule TAKE 1 CAPSULE BY MOUTH EVERY DAY 10/18 completed Not Available Not Available Not Available cyclobenz aprine 10 mg tablet TAKE 1 TABLET BY MOUTH EVERY 8 HOURS NEEDED FOR SPASMS 04/27 completed Not Available Not Available Not Available amoxicill in 500 mg capsule TAKE ONE CAPSULE BY MOUTH THREE TIMES DAILY FOR INFECTIO N 10/18 completed Not Available Not Available Not Available methocarb chun 500 mg tablet TAKE 1 TABLET BY MOUTH THREE TIMES DAILY NEEDED 10/18 completed Not Available Not Available Not Available atorvasta tin 20 mg tablet TAKE ONE TABLET BY MOUTH AT BEDTIME FOR CHOLESTE ROL active Not Available Not Available No t Available valacyclo vir 1 gram tablet Take 1 tablet every 12 hours by oral route for 7 days. 02/20 completed Not Available Not Available Not Available hydrocodo ne 5 mg-acetam inophen 325 mg tablet TAKE ONE TABLET BY MOUTH EVERY 6 HOURS NEEDED FOR PAIN 10/18 completed Not Available Not Available Not Available Peridex 0.12 % mouthwash Place 15 mL twice a day by mucous membrane route. 02/20 completed Not Available Not Available Not Available lidocaine 4 % topical cream Apply 1 applicat ion 5 times a day by topical route as needed for 30 days. 09/28 completed Not Available Not Available Not Available Zithromax Z-William 250 mg tablet TAKE 2 TABLETS (500 MG) BY ORAL ROUTE ONCE DAILY FOR 1 DAY THEN 1 TABLET (250 MG) BY ORAL ROUTE ONCE DAILY FOR 4 DAYS 06/24 completed Not Available Not Available Not Available chlorthal idone 25 mg tablet TAKE ONE TABLET BY MOUTH EVERY MORNING FOR FLUID RETENTIO N active Not Available Not Available No t Available hydrocodo ne 10 mg-acetam inophen 325 mg tablet TAKE 1 TO 2 TABLETS BY MOUTH EVERY 4 TO 6 HOURS NEEDED FOR PAIN NO ETOH OR DRIVING WHILE TAKING NARCOTIC S 02/20 completed Not Available Not Available Not Available ondansetr on 8 mg disintegr ating tablet Place 1 tablet every 8 hours by translin gual route for 2 days. 09/28 completed Not Available Not Available Not Available ketorolac 10 mg tablet Take 1 tablet every 6 hours by oral route as needed for 5 days. 04/21 completed Not Available Not Available Not Available amoxicill in 875 mg tablet Take 1 tablet every 12 hours by oral route. 06/29 completed Not Available Not Available Not Available Metrogel Vaginal 0.75 % (37.5 mg/5 gram) Insert 1 applicat orful every day by vaginal route at bedtime. 04/15 completed Called into [employer] spoke with Chris. Not Available Not Available Not Available baclofen 10 mg tablet Take 1 tablet 3 times a day by oral route as directed for 30 days. 09/28 completed Not Available Not Available Not Available hydrocodo ne 7.5 mg-acetam inophen 325 mg tablet TAKE ONE TABLET BY MOUTH EVERY 6 HOURS NEEDED 10/18 completed Not Available Not Available Not Available ranitidin e 150 mg tablet Take 1 tablet twice a day by oral route. 09/28 completed Not Available Not Available Not Available hydrochlo rothiazid e 12.5 mg capsule Take 1 capsule every day by oral route. 09/28 completed Not Available Not Available Not Available gabapenti n 300 mg capsule 10/18 completed Not Available Not Available Not Available Tylenol 325 mg tablet Take 2 tablets every 6 hours by oral route. 07/29 completed headache s Not Available Not Available Not Available pseudoeph edrine 30 mg tablet Take 1 tablet every 6 hours by oral route. 07/28 completed Not Available Not Available Not Available ibuprofen 600 mg tablet Take 1 tablet 3 times a day by oral route as needed for 10 days. 02/20 completed Not Available Not Available Not Available methylpre dnisolone 4 mg tablets in a dose pack TAKE 6 TABLETS BY MOUTH ON DAY 1 THEN DECREASE BY 1 TABLET DAILY UNTIL GONE 04/27 completed Not Available Not Available Not Available fluticaso ne propionat e 50 mcg/actua tion nasal spray,reagan pension Burtrum 1 spray every day by intranas al route. 09/28 completed Not Available Not Available Not Available dicyclomi ne 10 mg capsule Take 1 capsule 3 times a day by oral route. 09/28 completed Not Available Not Available Not Available loratadin e 10 mg tablet Take 1 tablet every day by oral route. 07/29 completed Not Available Not Available Not Available naproxen 500 mg tablet TAKE ONE TABLET BY MOUTH WITH FOOD EVERY 12 HOURS FOR PAIN 10/18 completed Not Available Not Available Not Available Tylenol Extra Strength 500 mg tablet Take 2 tablets 3 times a day by oral route as needed for 10 days. 02/20 completed Not Available Not Available Not Available Bactrim DS 800 mg-160 mg tablet Take 1 tablet every 12 hours by oral route for 10 days. 07/14 completed Not Available Not Available Not Available Benadryl Allergy 25 mg tablet Take 2 tablets every 4 hours by oral route. 2014 active Not Available Not Available Not Avai lable Sprintec (28) 0.25 mg-0.035 mg tablet Take 1 tablet every day by oral route. 07/14 completed Not Available Not Available Not Available ibuprofen 09/28 completed Not Available Not Available Not Available Nexplanon 68 mg subdermal implant 07/14 completed Not Available Not Available Not Available 28 mg iron-800 mcg tablet Take 1 tablet every day by oral route. 11/01/ 2023 active Not Available Not Available Not Avai lable Vitals Date Recorded Body height Oxygen saturation Oxygen saturation in Arterial blood by Pulse oximetry Heart rate Respiratory rate Body temperature Body mass index (BMI) Body weight Systolic blood pressure Diastolic blood pressure Provider Name and Address Organization Details Last Updated DateTime 1 149.86 cm 98 % 98 % 83 /min 16 /min 98.4 [degF] 43.8 kg/m2 37590.8 3 g 136 mm[Hg] 96 mm[Hg] Leia Knight LPN [facility] 1 14:58:38 Date Recorded Body height Body mass index (BMI) Body weight Body temperature Heart rate Respiratory rate Systolic blood pressure Diastolic blood pressure Provider Name and Address Organization Details Last Updated DateTime 1 149.86 cm 43.8 kg/m2 81162.8 3 g 98.4 [degF] 83 /min 16 /min 134 mm[Hg] 96 mm[Hg] Sadia Ibarra LPN [facility] 1 14:22:31 Date Recorded Body height Provider Name an d Address Organization Details Last Updated DateTime 05/22/2020 149.86 cm Lia Ray RN [facility] 2020 14:58:58 Date Recorded Body height Body mass index (BMI) Body weight Heart rate Systolic blood pressure Diastolic blood pressure Provider Name and Address Organization Details Last Updated DateTime 1 149.86 cm 43.6 kg/m2 47901.3 1 g 96 /min 145 mm[Hg] 87 mm[Hg] Johanne Alan [facility] 1 15:43:11 Date Recorded Respiratory rate Body height Body temperature Body mass index (BMI) Body weight Heart rate Systolic blood pressure Diastolic blood pressure Provider Name and Address Organization Details Last Updated DateTime 2 18 /min 152.4 cm 97.1 [degF] 38.4 kg/m2 59064.9 8 g 65 /min 145 mm[Hg] 95 mm[Hg] Ioana Ramsey [facility] 2 15:21:23 Date Recorded Systolic blood pressure Diastolic blood pressure Provider Name and Address Organization Details Last Updated DateTime 12/12/2021 130 mm[Hg] 92 mm[Hg] MARINO Munoz Attn: Accounting,[address] [facility], [place], [address], [facility] 12/12/2021 12:40:32 Date Recorded Body height Body mass index (BMI) Body weight Body temperature Systolic blood pressure Diastolic blood pressure Provider Name and Address Organization Details Last Updated DateTime 2 152.4 cm 38.9 kg/m2 86243.2 8 g 97.9 [degF] 126 mm[Hg] 82 mm[Hg] Gonzalo Powell MA [facility] 2 12:22:28 Date Recorded Body temperature Body weight Body mass index (BMI) Body height Oxygen saturation Oxygen saturation in Arterial blood by Pulse oximetry Heart rate Systolic blood pressure Diastolic blood pressure Provider Name and Address Organization Details Last Updated DateTime 3 98 [degF] 48534.6 6 g 34.8 kg/m2 151.13 cm 99 % 99 % 86 /min 108 mm[Hg] 70 mm[Hg] Marika sprague MA [facility] 3 12:45:32 Social History Question Answer Notes LastModified by Organizat ion Details LastModified Time Tobacco Smoking Status Never Smoker JACEY Razo, [facility] 03/09/2014 12:39:21 Do You Have An Advance Directive? No Information not available 08/26/2018 Are You Blind Or Do You Have Difficulty Seeing? No Information not available 05/22/2020 What Is Your Level Of Caffeine Consumption? Occasional Information not available 05/22/2020 How Much Tobacco Do You Chew? None Information not available 08/26/2018 In The 14 Days Before Symptom Onset, Have You Had Close Contact With A Laboratory-confi rmed COVID-19 While That Case Was Ill? No Information not available 05/22/2020 In The 14 Days Before Symptom Onset, Have You Had Close Contact With A Person Who Is Under Investigation For COVID-19 While That Person Was Ill? No Information not available 05/22/2020 Have You Been To An Area Known To Be High Risk For COVID-19? No Information not available 05/22/2020 Are You Deaf Or Do You Have Serious Difficulty Hearing? No Information not available 05/22/2020 What Type Of Diet Are You Following? REGULAR Information not available 11/17/2014 Which Illicit Or Recreational Drugs Have You Used? None [email or web address] Information not available 07/14/2017 Education 12 Information no t available 11/17/2014 Are There Any Guns Present In Your Home? No Information not available 11/17/2014 Hard Of Hearing Or Deaf In One Or Both Ears? No Information not available 11/17/2014 Legally Blind In One Or Both Eyes? No Information not available 11/17/2014 Marital Status [email or web address] Informatio n not available 07/14/2017 Do You Have A Medical Power Of Water Tender? No [email or web address] Information not available 10/18/2021 What Was The Date Of Your Most Recent Tobacco Screening? 01/29/2023 Information not available 01/29/2023 How Many Children Do You Have? 3 Information not available 12/12/2021 Performs Monthly Self-breast Exam? No Information not available 08/26/2018 What Is Your Relationship Status? Information not available 12/12/2021 Do You Use Your Seat Belt Or Car Seat Routinely? Yes Information not available 12/12/2021 Seat Belts Used Routinely Yes Information not available 11/17/2014 Smoke Alarm In Home Yes Information not available 11/17/2014 Do You Have Smoke And Carbon Monoxide Detectors In Your Home? Yes Information not available 05/22/2020 At What Age Did You Start Smoking Tobacco? 16 Information not available 08/26/2018 Are You Passively Exposed To Smoke? No Information not available 05/22/2020 How Much Tobacco Do You Smoke? No 1-2 Cigaretts [email or web address] Information not available 07/14/2017 General Stress Level Low Information not available 11/17/2014 Do You Use Sunscreen Routinely? No Sometimes Information not available 12/12/2021 Has Tobacco Cessation Counseling Been Provided? Yes Information not available 05/22/2020 On What Date Was Tobacco Cessation Counseling Provided? 02/21/2020 [email or web address] Information not available 02/21/2020 How Many Years Have You Smoked Tobacco? 3 Information not available 08/26/2018 Sex: Female Functional Status Question Answer Note LastModified by Organizat ion Details LastModified Time Do you use any illicit or recreational drugs? No Information not available 12/12/2021 What is your level of alcohol consumption? Occasional Information not available 11/17/2014 Do you or have you ever used smokeless tobacco? Never used smokeless tobacco Information not available 10/04/2019 Are you currently employed? No Information not available 12/12/2021 Are you able to care for yourself? Yes Information not available 05/22/2020 What is your occupation? [employer] Information not available 08/26/2018 Do you or have you ever used e-cigarettes or vape? Never used electronic cigarettes Information not available 10/04/2019 What is your exercise level? None Information not available 11/17/2014 Mental Status None recorded. Family History Relationship Description Onset Age of this Age Resolved Age Notes LastModified by Organization Details LastModified Time Paternal Uncle Diabetes mellitus [email or web address] Not available 2018 13:13:59 Paternal Grandmother Hypertensive disorder 46 [email or web address] Not available 2018 13:14:24 Paternal Grandmother Hypercholest erolemia 45 [email or web address] Not available 2018 13:13:37 Mother Alive Not availab le 06/09/2015 11:15:42 Father Alive Not availab le 06/09/2015 11:15:42 Medical History Condition Response Coronary Artery Disease N Other Y Gout N High Blood Pressure Y Colon Cancer N Kidney Stones N Hyperthyroidism N Depression N Blood Clots N Hypothyroidism N Anemia N Colon Polyps N Diabetes N Anxiety Disorder N Arthritis N Seizures/Epilepsy N Tuberculosis N Acid Reflux (GERD) N Cancer N Stroke N Asthma N Allergies N GERD/Reflux N High Cholesterol Y Hepatitis N Liver Disease N Heart Disease N Hypertension Y Kidney Disease N Gynecological History Statement/Question Response Flow Moderate Date of LMP 12/23/2022 On BCP's at Conception? N Duration of Flow (days) 7 Current Control Method None Age at Menarche 15 Age at First Child 21 Frequency of Cycle (Q days) 28 Menses Monthly Y Date of Last Pap Smear 08/20/2017 LMP Definite Obstetrics History GPAL:G 3 P 3 0 0 3 Type Value Multiple Births 0 Full Term 3 Induced 0 Spontaneous 0 Premature 0 Living 3 Ectopics 0 Total 3 Immunizations Vaccine Type Date Status Note Provider Nam e and Address Organization Details Recorded Time Influenza, split virus, trivalent, preservative 4 completed JACEY Razo null, MD - [facility] 03/09/2014 12:16:48 Tdap 5 completed MARINO Munoz Attn: Accounting[address] [place], [address], [facility] 10/12/2014 13:39:14 Influenza, split virus, quadrivalent, preservative 8 completed Not Available [facility] 04/17/2019 02:47:53 Influenza, split virus, quadrivalent, PF 2 completed MARINO Munoz Attn: Accounting[address] [place], [address], [facility] 12/12/2021 15:04:59 Influenza, split virus, trivalent, preservative 5 completed Not Available [facility] 04/17/2019 02:32:12 Past Encounters Encounter ID Performer Location Encounter Start Date Encounter Closed Date Diagnosis/Indication Diagnosis SNOMED-CT Code Diagnosis ICD10 Code Diagnosis Note [id number] Carlos Tafoya MD [facility] [address], [place] [address] 03/09/2014 10:42:42 03/14/2014 18:14:43 state of fetus, 2nd trimester [id number] Carlos Tafoya MD [facility] [address], [place] [address] 04/13/2014 11:55:46 04/15/2014 16:20:18 state of fetus, 2nd trimester 60461984 Upper resp iratory infection 45917213 Rhesus isoimmunization affecting 03921720 Normal 51267068 [id number] Carlos Tafoya MD [facility] [address], [place] [address] 10/12/2014 13:21:20 10/12/2014 15:27:21 Contraception education 803332042 will order Nexplanon for patient patient to return for insertion patient needs PP check in around 3 weeks no sexual activity until PPcheck [id number] Carlos Tafoya MD [facility] [address] [place] [address] 10/14/2014 12:37:45 10/14/2014 13:41:59 Implantation of subcutaneous contraceptive 064484633 Patient had healthy male 09/07/2014 wishes to have Neplanon insertion no contraindi cation Patient is breastfeed ing; had normal delivery without complicati ons at [facility] Patient is not to have sexual activity until after PP check History of hypertension 103175781 will monitor blood pressure Patient advised if headaches, chest pain, sob to seek reevaluati on immediatel y [id number] Horacio Tuttle On license of [facility] [address], [place] [address] 10/24/2014 13:54:27 10/27/2014 20:19:45 Family planning surveillance 281226039 left upper arm with small bruises palpated implant Otitis media 09388990 Tonsillitis 04327557 History of hypertension 483489993 will monitor blood pressure right arm 130/90 Patient advised if headaches, chest pain, sob to seek reevaluati on immediatel y [id number] Horacio Tuttle On license of [facility] [address], [place] [address] 11/17/2014 16:37:36 11/18/2014 16:49:19 state 32586768 Vaginal lesion 134765944 RhD negative 495572935 P atient had a negative work up at [facility] after delivery [id number] Horacio Tuttle On license of [facility] [address], [place] [address] 12/21/2014 10:39:48 12/29/2014 12:40:28 Hypertensive disorder 07592310 stressed monitor diet and exercise daily Obesity 141051680 diet weight loss [facility] [id number] [facility] [address] [place] [address] 4 12/23/2014 12:53:38 12/29/2014 13:31:45 Obesity 120040413 diet weight loss [id number] [facility] [address] [address] 4 04/28/2015 16:10:16 04/28/2015 17:43:31 Hypertensive disorder 73591571 I10 stressed monitor diet and exercise daily Obesity 760273863 E66.9 diet weight loss Chronic al lergic otitis media 82005492 H65.413 Headache 15329748 R51 Chronic gastritis 223973 9 K29.50 Pain in left arm 5110841 00 M79.602 Neuropathy 382346779 G62 .9 [id number] [facility] [address] [address] 4 06/09/2015 10:28:58 06/14/2015 17:21:55 Acute left otitis media 457812307 H66.92 Acute sinusitis 80674773 J01.90 [id number] Carlos Tafoya MD [facility] [address] [place] [address] 4 10/25/2015 15:53:29 10/29/2015 18:46:41 Hypertensive disorder 80184264 I10 stressed monitor diet and exercise daily B/P 120/88 left arm Hyperlipidemia 59514336 E78.5 Obesity 698379317 E66.9 diet weight loss [id number] Horacio Tuttle On license of [facility] [address] [place] [address] 4 07/29/2016 10:39:18 07/31/2016 14:15:51 Family planning surveillance 340560223 Z30.[address] left arm Patient will schedule for removal if she wishes to proceed with removal of implant Contracept bria methods discussed/ handouts Morbid obesity 484732187 E66.01 [id number] Horacio Tuttle [place] [address], [place] [address] 08/23/2016 12:25:05 08/23/2016 16:48:14 Posterior auricular lymphadenopathy 449567142 R59.0 Cyst of vagina 37802271 N89.8 [id number] Carlos Tafoya MD [facility] [address], [place] [address] 10/09/2016 11:52:43 10/24/2016 14:10:13 Irregular intermenstrual bleeding 60869695 N92.1 Nexplanon side effects Cyst of vagina 42655483 N89.8 Herpes culture negative Avoid squeezing/ handling [id number] Carlos Tafoya MD [facility] [address] [place] [address] 10/24/2016 15:43:24 10/24/2016 17:50:32 Contraception care management 948850830 Z30.09 Discussed contracept arianna risks and benefits Handout on contracept bria methods Condoms as necessary Removal of subcutaneous contraceptive done 8767903784 78114 Z98.890 removed Nexplanon without difficulti es [id number] Christiano Cline MD [place] [address] [place] [address] 02/13/2017 11:07:28 02/18/2017 15:22:29 Cyst of vagina 13556820 N89.8 Initial pr escription of oral contraception 970339882 Z30.373 [id number] LUI BARTLETT NP-Thu [facility] [address] [place] [address] 07/14/2017 14:11:38 07/17/2017 17:46:24 Tension-type headache 177126707 G44.209 hcg negative, done due to lmp more than one month agodiscuss ed daily prevention medication s vs PRN medspt wants to try PRN treatment for headachess tart naproxen BID PRN headachesa sked to keep headache journal and bring to next visit to evaluate how often headaches occurf/u in 2 mos on headaches/ naproxen Elevated blood-pressure reading without diagnosis of hypertension 890208843 R03.0 BP 134/106has gestationa l htn hxcheck labs-not fasting todaystart dash diet and exercisech nisha bp outside officef/u in 2 mos on bp Family his tory of diabetes mellitus 615845966 Z83.3 pt wants to be checked for DMhas family hxcheck HBA1Cf/u on labs [id number] Christiano Cline MD [facility] [address] 4 08/20/2017 14:07:49 08/20/2017 18:15:45 Gynecologic examination 54225760 Z01.411 no pay source--noel d normal pap 2013 calcium rich food handout vitamin D daily SBE exercise diet low fat low cho low carb Increased blood pressure 42446070 R03.0 reduce salt in your diet 50-60 minutes of aerobic physical activity 5-6 time per week lose weight 5-20% of current body weight if B/P remains elevated will start B/P meds Obesity 059078042 E66.9 diet weight loss Morbid obesity 752054229 E66.01 [id number] Carlos Tafoya MD [facility] [address] 4 09/11/2017 15:02:38 09/22/2017 17:16:32 Hypertensive disorder 22465281 I10 stressed monitor diet, weight loss and exercise daily B/P 130/88 left arm Obesity 852523110 E66.9 diet weight loss Hyperlipidemia 44328058 E78.5 trig [id number] Carlos Tafoya MD [facility] [address] [place] [address] 4 01/13/2018 16:09:12 01/22/2018 17:30:26 Hypertensive disorder 73468105 I10 stressed monitor diet, weight loss and exercise daily B/P 130/88 left arm stress has refills at pharmacy x3 she is to picker and sorter load and unload RX and start taking it Amenorrhea 94507012 N91. 2 LMP 11/25/2017 Has H/O irregular menses No menses in 2 weeks repeat a test Administra tion of influenza vaccine 21857209 Z23 Abdominal wall pain 1620 83744 R10.9 Reviewed e/r record umbilical hernia, hepatic steatosis and cholelithi asis. Umbilical hernia 3170347 07 K42.9 will hold off for now on surgical consult as patient has no insurance [id number] MD Paulo Chaparro (Adult Med) [address] [place] [address] 04/10/2018 15:28:17 04/13/2018 10:32:58 Missed period 61462787 N92.5 Low back pain 002572197 M54.5 May take tylenol. discussed with them , she will try light duty for the time being. [id number] Carlos Tafoya MD [facility] [address] [place] [address] 04/15/2018 10:51:23 04/21/2018 11:43:59 Hypertensive disorder 20688908 I10 stressed monitor diet, weight loss and exercise daily B/P 130/88 left arm stress has refills at pharmacy x2 she is to picker and sorter load and unload RX and start taking it Umbilical hernia 3654308 07 K42.9 will hold off for now on surgical consult as patient has no insurance Morbid obesity 071608666 E66.01 gained 10 pounds since last visit Noncomplia nce with medication regimen 080145396 Z91.14 Chest pain 53284426 R07. 9 [id number] [facility] [address] [place] [address] 04/16/2018 10:08:05 04/17/2018 11:35:07 Neck pain 36793663 M54.2 Low back pain 008852089 M54.5 May take tylenol. discussed with them , she will try light duty for the time being. Discussed with patient and patient, will put on sick absence for another week. [id number] MD Paulo Chaparro (Adult Med) [address] [place] [address] 04/21/2018 10:11:52 04/30/2018 13:17:52 Thoracic back sprain 887457277 S23.3XXD Return to regular duty tomorrow as they agreed. Neck sprain 182257920 S1 3.9XXD Low back pain 232663183 M54.5 May take tylenol. discussed with them , she will try light duty for the time being. Discussed with patient and patient, will put on sick absence for another week. [id number] Calros Tafoya MD [facility] [address] [address] 05/20/2018 11:24:47 05/21/2018 14:41:56 Acute sinusitis 83821767 J01.90 Hypertensive disorder 38 092890 I10 stressed monitor diet, weight loss and exercise daily B/P 130/88 left arm pt is not taking b/p meds--just restarted stress has refills at pharmacy x2 she is to picker and sorter load and unload RX and start taking it [id number] Carlos Tafoya MD [facility] [address], [place] [address] 06/24/2018 10:41:39 06/25/2018 08:14:26 Acute gastroenteritis 36274700 K52.9 Indigestion 454908838 R1 0.13 Chronic gastritis 591617 9 K29.50 stop daily intake of Ibuprofen 600mg bid Hypertensive disorder 38 235396 I10 stressed monitor diet, weight loss and exercise daily B/P 130/88 left arm pt is not taking b/p meds--just restarted stress has refills at pharmacy x2 she is to picker and sorter load and unload RX and start taking it [id number] Carlos Tafoya MD [facility] [address] [place] [address] 09/28/2018 12:21:00 09/29/2018 08:35:14 test negative 488727802 Z32.02 [id number] Carlos Tafoya MD [facility] [address] [place] [address] 08/03/2019 15:07:01 08/04/2019 12:25:36 Hypertensive disorder 45152294 I10 stressed monitor diet, weight loss and exercise daily B/P 130/88 left arm pt is not taking b/p meds-- stress she is to picker and sorter load and unload RX and start taking it Hypertensi on is the silent killer Steatotic liver disease 334729487 K76.0 Body mass index 40+ - severely obese 882809430 Z68.41 BMI 41.995-125 Healthy weight range Mixed hyperlipidemia 267 964206 E78.2 Avoid all breads, potatoes, cereal, pasta, rice, margarine, refined sugars, milk yogurt, ice cream, juices, soda (including diet), beer, and manmade or manufactur ed desserts. Enjoy steak, fish, chicken (no skin), pork, butter, vegetables , beans, nuts, whole eggs, cheese (low fat or skim), cream in your coffee. Acanthosis nigricans 402 670616 L83 on neck Intermitte nt palpitations 883826150 R00.2 off and on for months Depression screening 171 510428 Z13.31 negative [id number] Carlos Tafoya MD [facility] [address] [place] [address] 10/04/2019 16:10:57 10/05/2019 06:51:25 Hypertensive disorder 47752092 I10 stressed monitor diet, weight loss and exercise daily pt is now taking b/p med-- stress she is to continue taking chlorthali done Hypertensi on is the silent killer Mixed hyperlipidemia 267 532178 E78.2 Avoid all breads, potatoes, cereal, pasta, rice, margarine, refined sugars, milk yogurt, ice cream, juices, soda (including diet), beer, and manmade or manufactur ed desserts. Enjoy steak, fish, chicken (no skin), pork, butter, vegetables , beans, nuts, whole eggs, cheese (low fat or skim), cream in your coffee.08/02cho 153Trig 165HDL 39LDL 81 Steatotic liver disease 288588013 K76.0 Stay at a healthy weight. Or if you need to, slowly get to a healthy weight. Control your cholestero l. Talk to your doctor about ways to lower your cholestero l, if needed. You might try getting active, taking medicines, and making healthy changes to your diet. Eat healthy foods. This includes fruits, vegetables , lean meats and dairy, and whole grains. If you have diabetes, keep your blood sugar at your target level. Get at least 30 minutes of exercise on most days of the week. Walking is a good choice. You also may want to do other activities , such as running, swimming, cycling, or playing tennis or team sports. Limit alcohol, or do not drink. Alcohol can damage the liver and cause health problems Body mass index 40+ - severely obese 826755293 Z68.41 BMI 41.995-125 Healthy weight range Acanthosis nigricans 402 062066 L83 on neck Intermitte nt palpitations 674080482 R00.2 off and on for monthsCXR and EKG order given at last visit-get done bryan Abnormal l iver function 53924017 K76.89 AST 85ALT 163no alcoholno Tylenol COVID-19 157034965 U07.1 09/27/2019 + covid19 [id number] Carlos Tafoya MD [facility] [address] [place] [address] 01/20/2020 15:33:09 01/21/2020 14:59:00 Hypertensive disorder 15654201 I10 stressed monitor diet, weight loss and exercise daily pt is now taking b/p med-- stress she is to continue taking chlorthali done Hypertensi on is the silent killer Mixed hyperlipidemia 267 099007 E78.2 Avoid all breads, potatoes, cereal, pasta, rice, margarine, refined sugars, milk yogurt, ice cream, juices, soda (including diet), beer, and manmade or manufactur ed desserts. Enjoy steak, fish, chicken (no skin), pork, butter, vegetables , beans, nuts, whole eggs, cheese (low fat or skim), cream in your coffee.08/02cho 153Trig 165HDL 39LDL 81 Steatotic liver disease 114490664 K76.0 Stay at a healthy weight. Or if you need to, slowly get to a healthy weight. Control your cholestero l. Talk to your doctor about ways to lower your cholestero l, if needed. You might try getting active, taking medicines, and making healthy changes to your diet. Eat healthy foods. This includes fruits, vegetables , lean meats and dairy, and whole grains. If you have diabetes, keep your blood sugar at your target level. Get at least 30 minutes of exercise on most days of the week. Walking is a good choice. You also may want to do other activities , such as running, swimming, cycling, or playing tennis or team sports. Limit alcohol, or do not drink. Alcohol can damage the liver and cause health problems Body mass index 40+ - severely obese 499486169 Z68.41 BMI 41.995-125 Healthy weight range Acanthosis nigricans 402 734515 L83 on neck Intermitte nt palpitations 427630355 R00.2 off and on for monthsCXR and EKG normal Abnormal l iver function 40084869 K76.89 AST 85ALT 163no alcoholno TylenolPat ient has fatty liver COVID-19 438890272 U07.1 09/27/2019 + covid19 Stomatitis 84203666 K12. 30 [id number] Petra Castillo MD [facility] [address] [place] [address] 02/21/2020 10:39:15 02/21/2020 13:59:35 Liver enzymes level above reference range 233370565 R74.01 [id number] YANNICK CORADO NP [facility] [address] [place] [address] 04/27/2020 15:50:44 04/27/2020 17:14:43 Steatotic liver disease 870817620 K76.0 Fatty liver disease, likely NAFLD Patient counseled at length regarding dietary changes and exercise targeting a sustained 5% - 10% weight loss. Treatment should be focused on optimizing control of the weight, blood sugar, blood pressure and lipids which should reduce risk of cardiovasc ular disease and severity of liver disease. The use of a statin in NAFLD is safe, with no increased risk of drug-induc ed hepatotoxi city. Discussed with patient the concern that ongoing elevated liver enzymes can lead to liver fibrosis which can progress to cirrhosis. Cirrhosis is progressiv e liver damage with complicati ons of liver cancer, liver failure and . Body mass index 40+ - severely obese 326628998 Z68.41 Encouraged weight loss -Choosing low-fat, low-calori e foods -Eating smaller portions -Drinking water instead of sugary drinks -Being physically active Chronic gastritis 050168 9 K29.50 Hypertensive disorder 38 756491 I10 Mixed hyperlipidemia 267 500463 E78.2 [id number] YANNICK CORADO NP [facility] [address] [place] [address] 2020 14:12:02 05/22/2020 08:29:18 Steatotic liver disease 428524212 K76.0 NAFLD may have an element of MEGHANA, Low alpha 1 antitrypsi n, seeing Pulmonary todayANA test invalid per lab, needs repeat ANAFibrosc an of 05/17/2020: F3, S3Next appointmen t with Dr. 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 Order AAT phenotype and PFT to assess lung function. Dyspnea on exertion 6084 5006 R06.09 CXR Obstructiv e sleep apnea syndrome 61737621 G47.33 Would benefit from Home sleep apnea testing; snoring, morning headaches, daytime sleepiness and body habitus- BMI 43.8 Steatotic liver disease 510458351 K76.0 Followed by GI Hypertensive disorder 38 153777 I10 Managed in primary care. Continue to monitor blood pressure. Encourage low salt diet and exercise. Body mass index 40+ - severely obese 525376577 Z68.41 Encouraged weight loss -Choosing low-fat, low-calori e foods -Eating smaller portions -Drinking water instead of sugary drinks -Being physically active Pulmonary hypertension 93566007 I27.20 Echo [id number] YANNICK CORADO NP [facility] [address] [place] [address] 05/30/2020 15:08:16 05/30/2020 16:57:14 Non-alcoholic fatty liver 739926725 K76.0 Continue weight loss effortsWil l be seen in 2 months with lab recheck at that time.Attem pt to exercise 150 minutes weekly - walking is fineContin ue to abstain from EtOH, Tobacco and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
[2024-09-01 09:04] VITALS: BP 151/90; PULSE 81; RESP 14; TEMP 36.5; O2SAT 100
[2024-09-01 09:05] LABS: BEDSIDEPREGUCG Negative (Negative)
[2024-09-01] MEDS: MORPHINE SULFATE (*CRX) 4 MG/ML INJ IV PUSH (09:18)
[2024-09-01] MEDS: ONDANSETRON INJ 4 MG/2 ML VIAL IV PUSH (09:19)
[2024-09-01 09:23] LABS: Basophils Absolute Auto 0.1 K/mm3 (0.0-0.1); Basophils Percent Auto 0.5 % (0.2-1.2); Eosinophils Absolute Auto 0.2 K/mm3 (0-0.3); Eosinophils Percent Auto 2.2 % (0-4.4); Hematocrit 40.9 % (37.0-47.0); Hemoglobin 13.8 g/dL (12.0-15.0); Immature Granulocyte Absolute 0.03 K/mm3 (0.00-0.031); Immature Granulocyte Percent A 0.3 % (0-0.5); Lymphocytes Absolute Auto 3.07 K/mm3 (0.9-3.2); Lymphocytes Percent Auto 31.6 % (18.3-44.2); Mean Corpuscular HGB Conc 33.7 g/dl (32-36); Mean Corpuscular Hemoglobin 29.7 pg (26-34); Mean Platelet Volume 9.7 fl (7.4-10.4); Monocytes Absolute Auto 0.6 K/mm3 (0.1-0.6); Monocytes Percent Auto 5.8 % (2.6-8.5); Neutrophils Absolute Auto 5.8 K/mm3 (1.3-6.7); Neutrophils Percent Auto 59.6 % (45.5-73.1); Platelet Count Result 285 k/mm3 (150-375); Red Blood Count 4.65 M/mm3 (4.2-5.4); Red Cell Distribution Width 12.7 % (11.5-14.5); White Blood Count 9.7 K/mm3 (4.5-10.0)
--- NOTE | 2024-09-01 09:35 | ED_ITS ---
HPI - Abdominal Pain General Chief Complaint: Abdominal Pain Stated Complaint: abdominal pain Time Seen by Provider: 09/01/24 08:58 History of Present Illness HPI narrative: Patient presents here with epigastric abdominal pain, ongoing last 2 days after eating hamburger, associated some nausea vomiting. Related Data Allergies Allergy/AdvReac Type Severity Reaction Status Date / Time No Known Allergies Allergy Verified 09/01/24 09:06 Review of Systems 2 Review of Systems: All systems reviewed & are unremarkable except as noted in HPI and below PMFSH Surgical History Surgical History History of section Social History Social History Social History: Ivorian as a 2nd language (Turkish speaking) Alcohol intake: never Living arrangements: with family Exam 2 Narrative: EXAMINATION OF ORGAN SYSTEMS/BODY AREAS: Constitutional: Vital signs per nursing GENERAL:[No acute distress, non-toxic appearing.] HEAD: Normal with no signs of head trauma. EYES: EOMI, conjunctiva normal ENT: Hearing grossly intact LUNGS: Nonlabored breathing. HEART: [Regular rate and rhythm] ABD: [Soft], very minimal tenderness to palpation epigastric abdomen, negative Hopkins sign EXT: Normal range of motion SKIN: [No rashes or lesions.] NEURO: [Alert and oriented x 3. No gross focal sensory or strength deficits.] PSYCH: Normal affect Course Vital Signs Vital signs: Vital Signs Temperature 97.7 F 09/01/24 09:04 Pulse Rate 81 09/01/24 09:04 Respiratory Rate 14 09/01/24 09:04 Blood Pressure 151/90 H 09/01/24 09:04 Pulse Oximetry 100 09/01/24 09:04 Oxygen Delivery Room Air 09/01/24 09:04 Temperature 97.7 F 09/01/24 09:04 Pulse Rate 81 09/01/24 09:04 Respiratory Rate 14 09/01/24 09:04 Blood Pressure 151/90 H 09/01/24 09:04 Pulse Oximetry 100 09/01/24 09:04 Oxygen Delivery Room Air 09/01/24 09:04 MDM - Abdominal Pain MDM Narrative Medical decision making narrative: Electronic medical record was reviewed. Patient presented to the ED with complaint of [abdominal pain and vomiting]. Vitals [were within acceptable limits]. Physical exam revealed soft abdomen with very minimal tenderness to deep palpation epigastric abdomen, negative Hopkins's. Based on the patient's history and physical exam, my differential includes but is not limited to [gastritis, gastroenteritis, cholecystitis, pancreatitis]. [IV access was established by nursing staff. Patient was given zofran, morphine]. CBC, BMP, lipase, LFTs, bilirubin and alk phos were obtained. Labs were pertinent for no white count, no elevated LFTs or bili, normal electrolytes and urine. On reevaluation, the patient states that they are feeling much better. There were no witnessed episodes of vomiting in the emergency department. They are not complaining of any new abdominal pain. Repeat examination did not show any significant guarding or rebound. No new tenderness. At this time I do not feel there is any further emergent treatment to be provided. The patient was given strict return precautions, if they are to develop any worsening abdominal pain, vomiting, or blood in the vomit they are to return to the emergency department immediately. Patient verbally acknowledges understanding these directions. [The patient was informed of the above diagnostic test findings.] They will be discharged home [with prescriptions]. They were advised to follow-up with [their PCP] in 2 days. The patient feels that this is appropriate medical decision making and verbalizes an understanding of the discharge instructions. Lab Data 09/01/24 09:14 09/01/24 09:14 Labs: Lab Results 09/01/24 09/01/24 Range/Units 09:04 09:14 WBC 9.7 (4.5-10.0) K/mm3 RBC 4.65 (4.2-5.4) M/mm3 Hgb 13.8 (12.0-15.0) g/dL Hct 40.9 (37.0-47.0) % MCV 88.0 (80-100) fl MCH 29.7 (26-34) pg MCHC 33.7 (32-36) g/dl RDW 12.7 (11.5-14.5) % Plt Count 285 (150-375) k/mm3 MPV 9.7 (7.4-10.4) fl Immature Gran % (Auto) 0.3 (0-0.5) % Neut % (Auto) 59.6 (45.5-73.1) % Lymph % (Auto) 31.6 (18.3-44.2) % [place] % (Auto) 5.8 (2.6-8.5) % Eos % (Auto) 2.2 (0-4.4) % Baso % (Auto) 0.5 (0.2-1.2) % Lymph # (Auto) 3.07 (0.9-3.2) K/mm3 [place] # (Auto) 0.6 (0.1-0.6) K/mm3 Eos # (Auto) 0.2 (0-0.3) K/mm3 Baso # (Auto) 0.1 (0.0-0.1) K/mm3 Abs Immat Gran (auto) 0.03 (0.00-0.031) K/mm3 Absolute Neuts (auto) 5.8 (1.3-6.7) K/mm3 Absolute Nucleated RBC 0.000 (0.0-0.012) K/mm3 Nucleated RBC % 0.0 (0.0-0.2) % Sodium 140 (137-145) mmol/L Potassium 4.1 (3.4-5.0) mmol/L Chloride 106 (98-107) mmol/L Carbon Dioxide 26 (22-30) mmol/L Anion Gap 8 (4-12) mmol/L BUN 13 (7-17) mg/dL Creatinine 0.72 (0.7-1.0) mg/dL Estim Creat Clear Calc 90 ml/min Estimated GFR > 60 (59 - ) Glucose 95 (65-110) mg/dL Calcium 9.4 (8.4-10.2) mg/dL Total Bilirubin 0.4 (0.2-1.3) mg/dL AST 34 (14-36) U/L ALT 29 (6-35) U/L Alkaline Phosphatase 92 (38-126) U/L Total Protein 8.9 H (6.3-8.2) g/dL Albumin 4.9 (3.5-5.1) g/dL Lipase 128 (23-300) U/L Urine Color Yellow (Yellow) Urine Appearance Clear (Clear) Urine pH 5.5 (5.0-9.0) Ur Specific [place] 1.019 (1.001-1.035) Urine Protein Negative (Negative) mg/dL Urine Glucose (UA) Negative (Negative) mg/dL Urine Ketones Negative (Negative) mg/dL Ur Blood (Man) Negative (Negative) Urine Nitrate Negative (Negative) Urine Bilirubin Negative (Negative) Urine Urobilinogen 0.2 (<2.0) mg/dL Leukocyte Esterase Rfl Negative (Negative) PAUL/UL POC Urine HCG, Qual Negative (Negative) Discharge Plan Discharge Clinical Impression: Acute epigastric pain, Nausea & vomiting Patient Disposition: Home Condition: Stable Instructions: Acute Nausea and Vomiting (ED), Abdominal Pain (ED) Additional Instructions: Please follow up with a PCP; you can always return for any further issues. Patient Language: Turkish Prescriptions: New famotidine 20 mg tablet 20 mg PO DAILY Qty: 30 0RF dicyclomine 20 mg tablet 20 mg PO TID PRN (Reason: abdominal pain) Qty: 30 0RF alum-mag hydroxide-simeth [Maalox Advanced] 200-200-20 mg/5 mL suspension 10 ml PO QID PRN (Reason: dyspepsia) Qty: 200 0RF Rx Instructions: administer between meals and at bedtime ondansetron 4 mg tablet,disintegrating 4 mg PO Q8H PRN (Reason: nausea and vomiting) Qty: 10 0RF Follow-up/Referrals: PHYSICIAN,OPHTHALMOLOGY ASSISTANT [Primary Care Provider] - Jake Bishop MD [Physician] - 2 Days Stand Alone Forms: Work/School Release IP
[2024-09-01 09:39] LABS: Alanine Aminotransferase 29 U/L (6-35); Albumin Level 4.9 g/dL (3.5-5.1); Alkaline Phosphatase 92 U/L (38-126); Anion Gap 8 mmol/L (4-12); Aspartate Amino Transferase 34 U/L (14-36); Bilirubin,Total 0.4 mg/dL (0.2-1.3); Blood Urea Nitrogen 13 mg/dL (7-17); Calcium 9.4 mg/dL (8.4-10.2); Carbon Dioxide 26 mmol/L (22-30); Chloride 106 mmol/L (98-107); Estimated CRCL calculation 90 ml/min; Estimated Glomerular Filt Rate > 60; Glucose 95 mg/dL (65-110); Lipase 128 U/L (23-300); Potassium 4.1 mmol/L (3.4-5.0); Sodium 140 mmol/L (137-145); Total Protein 8.9 g/dL (6.3-8.2)
--- OUTSIDE RECORDS SUMMARY | 2024-09-01 09:43 | XMS_ITS | Clinical Summary ---
Author Organization [facility] [employer] Address [address] [place] [address] Care Team Providers Care Administrator Health Care Facility Name Role Phone [facility], [facility] Primary Care Pr ovider Source Comments [facility] [employer],non-owned Affiliates and Associated Physician Practices is amultiple site organization consisting of ambulatory clinics and hospital sitesin [place], [place], [place] and [place]. This disclosure is being madepursuant to the Care Everywhere program and may not contain all information available regarding this patient. Last updated 17.[facility] [employer] Allergies No known active allergies Medications * [...] migh t be different from the original. [employer] form completed. Diapers given. 07/22/2023, [...] continue to discuss [email or web address] handout provided in luxembourgish MOF: breast Discussed how to obtain breast [...] negative Assessment & Plan (04/15/2023 3:59 PM WOOD TOOL MAKER): S/p antibiotics DIEGO sent today AMA (advanced [...] weeks Assessment & Plan (04/15/2023 3:59 PM WOOD TOOL MAKER): NIPT LR LD ASA rx resent Assessment & Plan (03/19/2023 12:26 PM WOOD TOOL MAKER): 1. NIPT collected 03/19/23 2. ASA 162mg QD to be started at 12w, Rx'ed on 03/19/23 Spondylosis 03/19/2023 Overview (03/19/2023): 1. Spondylosis s/p diskectomy 1. Done at [facility] in 2019 2. Anterior cervical diskectomy [...] VB Assessment & Plan (04/15/2023 3:59 PM WOOD TOOL MAKER): Denies VB Assessment & Plan (03/19/2023 12:24 PM WOOD TOOL MAKER): Denies vaginal bleeding Positive urine drug screen 03/19/2023 Overview (03/19/2023): Cocaine + @ NOB. 03/19/23: Pt denies Cocaine Use. Pt educated on Risks of use including abruption, hypertension and . Assessment & Plan (03/19/2023 12:19 PM WOOD TOOL MAKER): 03/19/23: Pt denies Cocaine Use. Pt educated on Risks of use including abruption, hypertension and . H/O forceps delivery in prior , current ly 05/09/2014 Overview (03/19/2023): 1. H/o operative delivery 1. G2 - forceps delivery for poor maternal effort, @ 39w4d Language barrier 05/09/2014 Overview (05/09/2014): Kuwaiti speaking Chronic hypertension complic ating or reason [...] Assymptomtic Assessment & Plan (04/15/2023 4:00 PM WOOD TOOL MAKER): -Normotensive -24 hour urine supplies provided today Assessment & Plan (03/19/2023 12:16 PM WOOD TOOL MAKER): - Baseline PreE: CBC/CMP: WNL at NOB - Please provide patient with 24 hour urine collection supplies at next visit H/O: 08/20/2011 Overview (07/25/2023): 1. H/o CS x1 1. G1- pLTCS in 2006 for AOD at 6cm @ 40w 2. Successful x2 - @ [facility] 3. Done in [place], [place] [facility]. Operative note (under media tab) wnl 4. [...] TOLAC Assessment & Plan (04/15/2023 4:01 PM WOOD TOOL MAKER): -PNC up to date -CC: vaginal discharge. Reviewed normal physiologic changes in . Reviewed vulvar care guidelines. Encouraged to seek evaluation if odor or irritation develops. Assessment & Plan (03/19/2023 12:29 PM WOOD TOOL MAKER): NIPT not collected Cyst of right ovary 03/19/2023 07/25/19 Overview (03/19/2023): 02/19/23: The right ovary appears normal and contains a simple cyst consistent with a corpus luteal cyst. Abnormal liver function 12/12/2021 06/28/2023 0408/2023 Nonalcoholic fatty liver 05/29/2020 06/28/2023 Ywpiw-2-cjdgbaowmbh deficiency 05/21/2020 06/28/2023 07/25/2023 Overview (06/28/2023): seeing occupational therapy assistant Obstructive sleep apnea syndrome 05/21/2020 06/28/1907/25/2023 Overview (06/28/2023): seeing occupational therapy assistant Pulmonary hypertension 05/21/2020 06/28/202307/24 Overview (06/28/2023): getting echo per occupational therapy assistant Cervical spine instability 01/31/2020 1 05/20/2022 Mixed [...] medical care, and heating? Somewhat hard 10/03/2023 [facility] of Occupat ional Health - Occupational Stress [...] place to sleep or slept in a custodial (including now)? Yes 10/03/2023 [place] Depression Scale Answer Date Recorded [place] Depression Scale Total 0 10/03/2023 The thought of harming myself has occurred to me . Never 10/03/2023 Comments No Sex and Gender Information Value Date Recorded Sex Assigned at Female 09/01/2023 7:08 PM CDT Legal Sex Female 7:02 PM WOOD TOOL MAKER Gender Identity Not on file Sexual Orientation [...] Info) Description 10/04/2024 2:15 PM CDT Appointment [facility] MATERNAL/ EVALUATION UNIT [address] [facility] [address] [place] [address] Health Maintenance Due Date Last Done Comments [...] this topic Medical Devices Implanted Type Area Type Cutter Device Identifier Shelf Expiration Date Model / Serial / Lot Graft Bone 1-4mm 15ml Crsh Fsh Frzn Canc Implanted:Qty : 1 on 01/31/2020 by Gurjit Munguia MD at [facility] N/A: Spine Cervical Allosource 07/08/2022 [id number] / / [id number] Kit Bngf 20mm 12mm Infs 2xs Spne Rhbmp-2 Implanted:Qty : 1 on 01/31/2020 by Gurjit Munguia MD at [facility] N/A: Spine Cervical Medtronic Sofamor Danek [employer] 11/28/2020 [id number] / / [id number] Sub Bngf Progenix Dbm Bvn Clgn Ptty 1ml Implanted:Qty : 1 on 01/31/2020 by Gurjit Munguia MD at [facility] N/A: Spine Cervical Spinal Graft [employer] 10/09/2020 [id number] / / [id number] F3d Cervical 14.5mm X12mm Implanted:Qty : 2 on 01/31/2020 by Gurjit Munguia MD at [facility] N/A: Spine Cervical [employer] 06/13/2024 [id number] / / [id number] Screw 4mm 15mm Slf-Tap Va Spne Crv Ant Implanted:Qty : 2 on 01/31/2020 by Gurjit Munguia MD at [facility] N/A: Spine Cervical Medtronic Sofamor Danek [employer] [id number] / / Screw 4mm 14mm Slf-Tap Va Spne Crv Ant Implanted:Qty : 4 on 01/31/2020 by Gurjit Munguia MD at [facility] N/A: Spine Cervical Medtronic Sofamor [employer]ane[employer] [id number] / / Plate Lck Spne Crv Ant 40mm Atlnts Implanted:Qty : 1 on 01/31/2020 by Gurjit Munguia MD at [facility] N/A: Spine Cervical Medtronic Sofamor Danek [employer] [id number] / / Procedures Procedure Name Priority Date/Time Associated Diagnosis Comments HIV-1 HIV-2 ANTIBODY + HIV P24 AG PANEL Routine 07/22/2023 4:09 PM CDT 28 weeks gestation of PAP IG LB+HPV APTIMA Routine 02/19/2023 9:22 AM WOOD TOOL MAKER H/O: HEPATITIS C ANTIBODY Routine 02/19/2023 9:21 AM WOOD TOOL MAKER H/O: from Last 3 Months or Most Recently Relevant to Health Maintenance Results * HIV-1 HIV-2 ANTIBODY + HIV P24 AG PANEL (07/22/2023 4:09 PM CDT) HIV1/2 Ab + P24 Ag Non Reactive Non Reactive 07/22/2023 5:03 PM CDT [facility] Blood BLOOD SPECIMEN / Unknown Venipuncture / Unknown 07/22/2023 4:09 PM CDT 07/22/2023 4:19 PM CDT Narrative [facility] - 07/22/2023 5:03 PM CDT No Laboratory evidence of HIV infection. Sadia Jewell MD LAB - CHEMISTRY ORDERABLES Final Result [facility] [address] [place] [address] * PAP IG LB+HPV APTIMA (02/19/2023 9:22 AM WOOD TOOL MAKER) Diagnosis Comment 02/24/2023 11:06 PM WOOD TOOL MAKER [facility] ([facility]) Comment:NEGATIVE FOR INTRAEP ITHELIAL LESION OR MALIGNANCY. Specimen Adequacy Comment 023 11:06 PM WOOD TOOL MAKER [facility] ([facility]) Comment: Satisfactory for evaluation. Endocervical and/or squamous metaplastic cells (endocervical component) are present. Performed by Comment 02/24/2023 11:06 PM WOOD TOOL MAKER [facility] ([facility]) Comment:Yue Horne [employer] hnologist (ASCP) Comment . 02/24/2023 11:06 PM WOOD TOOL MAKER [facility] ([facility]) Note Comment 02/24/2023 11:06 PM WOOD TOOL MAKER [facility] ([facility]) Comment: The Pap smear is a screening test designed to aid in the detection of premalignant and malignant conditions of the uterine cervix. It is not a diagnostic procedure and should not be used as the sole means of detecting cervical cancer. Both false-positive and false-negative reports do occur. IGLBP CPT Code Automation Comment 02/24/2023 11:06 PM WOOD TOOL MAKER [facility] ([facility]) Comment: This liquid based ThinPrep(R) pap test was screened with the use of an image guided system. Human papillomavirus Aptima Negative Negative 02/24/2023 11:06 PM [facility] ([facility]) Comment: This nucleic acid amplification test detects fourteen high-risk HPV types (16,18,31,33,35,39,45,51,52,56,58,59,66,68) without differentiation. Pathology/Cytolo gy PART OF UTERINE CERVIX / Unknown Collection / Unknown 02/19/2023 9:22 AM WOOD TOOL MAKER 02/19/2023 10:14 AM WOOD TOOL MAKER Narrative [facility] ([facility]) - 02/24/2023 11:06 PM WOOD TOOL MAKER Performed at: 01 - [facility] [address] [place] [id number] City Carrier: Carlos Alonso MD, Phone: [phone] Performed at: [address] [id number] City Carrier: Emiliana Watson MD, Phone: [phone] Performed at: 03 - [address] [id number] City Carrier: Emiliana Watson MD, Phone: [phone] Specimen Comment: No. of containers..01 ThinPrep Vial Israel Choudhury MD LAB - PATHOLOGY/CYTOLOGY ORDERAB LES Final Result [facility] ([facility]) [address] [place] [address] * HEPATITIS C ANTIBODY (02/19/2023 9:21 AM WOOD TOOL MAKER) HCV Antibody Screen Non Reactive Non Reactive 02/19/2023 10:57 AM WOOD TOOL MAKER [facility] Blood BLOOD SPECIMEN / Unknown Venipuncture / Unknown 02/19/2023 9:21 AM WOOD TOOL MAKER 02/19/2023 9:49 AM WOOD TOOL MAKER Narrative [facility] - 02/19/2023 10:57 AM WOOD TOOL MAKER Non Reactive - Antibodies to Hepatitis C virus (HCV) were not detected, result does not exclude early acute HCV infection. Israel Choudhury MD LAB - CHEMISTRY ORDERABLES Final Result [facility] [address] [place] [address] from Last 3 Months or Most Recently Relevant to Health Maintenance Insurance [facility] [place] [address] * Guarantor: PASTORA LENZ Account Type Relation to Patient Date of Phone Billing Address Personal/Family [address] [place] [address] Advance Directives * Full Code (Latest Code [...] 10:44 AM 09/10/2011 2:21 AM Care Teams Administrator Health Care Facility Relationship Specialty Start Date End Date [facility] [address] [place] [address] PCP - General Family Medicine 02/01/23
[2024-09-01 10:34] LABS: Add Urine Microscopic? NO; Appearance Urine Clear (Clear); Bilirubin Urine Negative (Negative); Blood Urine Negative (Negative); Color Urine Yellow (Yellow); Glucose Urine UA Negative (Negative); Ketones Urine Negative (Negative); Leukocyte Esterase Ur Negative LEU/UL (Negative); Nitrate Urine Negative (Negative); Protein Urine Negative (Negative); Specific Grav Ur 1.019 (1.001-1.035); Urobilinogen Urine 0.2 mg/dL (<2.0); pH Urine 5.5 (5.0-9.0)
[2024-09-01] MEDS: FAMOTIDINE 20 MG TABLET PO (11:50)
[2024-09-01] MEDS: DICYCLOMINE HCL 10 MG CAPSULE 20 MG PO (11:50)
== END 2024-09-01 11:56 | disposition home or self-care (01) ==
PROVIDERS: Emergency Provider Emergency Medicine
DX: R10.13 Epigastric pain (principal); R11.2 Nausea with vomiting, unspecified
CPT/HCPCS: 36415; 80053; 81003; 81025; 83690; 85025; 96374; 96375; 99284; A9270; J2270; J2405

== ENCOUNTER 2024-09-07 10:32 | Emergency (ER) | payer SELFPAY ==
[2024-09-07 10:50] VITALS: BP 113/74; PULSE 73; RESP 16; TEMP 36.7; O2SAT 100
--- NOTE | 2024-09-07 11:33 | ED_ITS ---
HPI - General Adult General Chief complaint: Vaginal Bleeding Stated complaint: vaginal bleeding Time Seen by Provider: 09/07/24 10:48 History of Present Illness HPI narrative: Through the Togolese Intrepreter, Pastora Hall is a 31-year-old female who presents today with complaints of having vaginal bleeding starting her menses 2 days ago. She states that she has not had vaginal bleeding since she gave on August 27, 2023. She complains of having abdominal cramping and pain. She states that she was here last week for abdominal pain. Related Data Allergies Allergy/AdvReac Type Severity Reaction Status Date / Time No Known Allergies Allergy Verified 09/07/24 10:54 Review of Systems 2 Review of Systems: All systems reviewed & are unremarkable except as noted in HPI and below PMFSH Surgical History Surgical History History of section Social History Social History Social History: Georgian as a 2nd language (Togolese speaking) Alcohol intake: never Living arrangements: with family Exam 2 Narrative: GENERAL: Well-appearing, well-nourished, and in no acute distress. HEAD: Normocephalic, atraumatic. EYES: PERRLA and EOMI. ENT: Nares clear, no rhinorrhea or epistaxis. Mucous membranes moist. NECK: Supple. No adenopathy or masses. No carotid bruits or JVD CHEST: Clear to auscultation. No respiratory distress. No wheezes rales or rhonchi HEART: Regular rate and rhythm. No murmur heard. Normal peripheral pulses. ABDOMEN: Soft, nontender, nondistended, normal active bowel sounds. EXTREMITIES: Normal range of motion. No edema. SKIN: Warm, dry, no rash. NEURO: No focal deficits. Alert and oriented x3. PSYCH: Normal mood and affect. Course Vital Signs Vital signs: Vital Signs Temperature 36.7 C 09/07/24 10:50 Pulse Rate 73 09/07/24 10:50 Respiratory Rate 16 09/07/24 10:50 Blood Pressure 113/74 09/07/24 10:50 Pulse Oximetry 100 09/07/24 10:50 Temperature 36.7 C 09/07/24 10:50 Pulse Rate 73 09/07/24 10:50 Respiratory Rate 16 09/07/24 10:50 Blood Pressure 113/74 09/07/24 10:50 Pulse Oximetry 100 09/07/24 10:50 Medical Decision Making MDM Narrative Medical decision making narrative: 39-year-old female who presents with vaginal bleeding that started 2 days ago she feels like this is her menstrual cycle however she has not had 1 in a year since she gave August 27, 2023. She is not on any medications states she is having abdominal cramping and pain. She also states that she is going through about 2-3 pads an hour. Plan to check labs and pelvic exam CBC: no leukycytosis, hemodynamically stable hgb 11.8, hct 34.9 CMP unremarkable UA: Cloudy, red, 1+ protein, 3+ blood, leuks-no urinary symptoms Urine preg-negative PT PTT-unremarkable Pelvic exam : + vaginal bleeding that is not hemorrhaging, able to visualize the cervix no other abnormal findings. Through the publication manager again pt updated on results and plan to follow up with OB she is agreeable to this plan and is asking for a work note, will provide this as well Denies having any further questions. Medical Records Medical records reviewed: Yes I reviewed the external patient's medical records. Vital Signs Vital Signs: Vital Signs Temperature 36.7 C 09/07/24 10:50 Pulse Rate 73 09/07/24 10:50 Respiratory Rate 16 09/07/24 10:50 Blood Pressure 113/74 09/07/24 10:50 Pulse Oximetry 100 09/07/24 10:50 Temperature 36.7 C 09/07/24 10:50 Pulse Rate 73 09/07/24 10:50 Respiratory Rate 16 09/07/24 10:50 Blood Pressure 113/74 09/07/24 10:50 Pulse Oximetry 100 09/07/24 10:50 Vitals reveiwed by dc Lab Data 09/07/24 12:14 09/07/24 12:14 Labs: Lab Results 09/07/24 09/07/24 09/07/24 Range/Units 12:14 12:37 12:40 WBC 7.3 (4.5-10.0) K/mm3 RBC 4.04 L (4.2-5.4) M/mm3 Hgb 11.8 L (12.0-15.0) g/dL Hct 34.9 L (37.0-47.0) % MCV 86.4 (80-100) fl MCH 29.2 (26-34) pg MCHC 33.8 (32-36) g/dl RDW 12.3 (11.5-14.5) % Plt Count 272 (150-375) k/mm3 MPV 9.5 (7.4-10.4) fl Immature Gran % (Auto) 0.3 (0-0.5) % Neut % (Auto) 57.3 (45.5-73.1) % Lymph % (Auto) 34.3 (18.3-44.2) % [place] % (Auto) 5.0 (2.6-8.5) % Eos % (Auto) 2.6 (0-4.4) % Baso % (Auto) 0.5 (0.2-1.2) % Lymph # (Auto) 2.52 (0.9-3.2) K/mm3 [place] # (Auto) 0.4 (0.1-0.6) K/mm3 Eos # (Auto) 0.2 (0-0.3) K/mm3 Baso # (Auto) 0.0 (0.0-0.1) K/mm3 Abs Immat Gran (auto) 0.02 (0.00-0.031) K/mm3 Absolute Neuts (auto) 4.2 (1.3-6.7) K/mm3 Absolute Nucleated RBC 0.000 (0.0-0.012) K/mm3 Nucleated RBC % 0.0 (0.0-0.2) % PT 13.0 (11.1-14.7) Seconds INR 1.0 APTT 26.9 (22.3-36.8) Seconds Sodium 140 (137-145) mmol/L Potassium 4.1 (3.4-5.0) mmol/L Chloride 107 (98-107) mmol/L Carbon Dioxide 25 (22-30) mmol/L Anion Gap 8 (4-12) mmol/L BUN 9 (7-17) mg/dL Creatinine 0.59 L (0.7-1.0) mg/dL Estim Creat Clear Calc 110 ml/min Estimated GFR > 60 (59 - ) Glucose 100 (65-110) mg/dL Calcium 9.4 (8.4-10.2) mg/dL Total Bilirubin 0.3 (0.2-1.3) mg/dL AST 27 (14-36) U/L ALT 26 (6-35) U/L Alkaline Phosphatase 90 (38-126) U/L Total Protein 7.8 (6.3-8.2) g/dL Albumin 4.6 (3.5-5.1) g/dL Urine Color Red H (Yellow) Urine Appearance Cloudy H (Clear) Urine pH 6.5 (5.0-9.0) Ur Specific [place] 1.015 (1.001-1.035) Urine Protein 1+ H (Negative) mg/dL Urine Glucose (UA) Negative (Negative) mg/dL Urine Ketones Negative (Negative) mg/dL Ur Blood (Man) 3+ H (Negative) Urine Nitrate Negative (Negative) Urine Bilirubin Negative (Negative) Urine Urobilinogen 0.2 (<2.0) mg/dL Leukocyte Esterase Rfl 1+ H (Negative) PAUL/UL Urine RBC >100 H (0-2) /hpf Urine WBC 11-20 H (0-3) /hpf Ur Squamous Epith Cells None seen (Few) /hpf Urine Bacteria None seen /hpf Urine Casts 0-2 POC Urine HCG, Qual Negative (Negative) Blood Type A Negative Antibody Screen Negative Discharge Plan Discharge Clinical Impression: Vaginal bleeding, Dysfunctional uterine bleeding Patient Disposition: Home Condition: Stable Instructions: Antibiotic Form Additional Instructions: call to follow up with OBGYN as we discussed This cycle should slow down as it is day 3 IF you develop any worsening symptoms or feel that your bleeding is getting worse or dose not stop then you can always return to the ER. Patient Language: Togolese Prescriptions: No Action famotidine 20 mg tablet 20 mg PO DAILY Qty: 30 0RF dicyclomine 20 mg tablet 20 mg PO TID PRN (Reason: abdominal pain) Qty: 30 0RF alum-mag hydroxide-simeth [Maalox Advanced] 200-200-20 mg/5 mL suspension 10 ml PO QID PRN (Reason: dyspepsia) Qty: 200 0RF Rx Instructions: administer between meals and at bedtime ondansetron 4 mg tablet,disintegrating 4 mg PO Q8H PRN (Reason: nausea and vomiting) Qty: 10 0RF Follow-up/Referrals: José Luis Garcia MD [Physician] - 1 Week PHYSICIAN,[employer] [Non-Staff] - Stand Alone Forms: Work/School Release IP Time of Disposition: 13:27
--- OUTSIDE RECORDS SUMMARY | 2024-09-07 11:42 | XMS_ITS | Clinical Summary ---
Author Organization [facility] Address [address] [address] Care Team Providers Care Facilities Maintenance Worker Name Role Phone [facility], [facility] Primary Care Pr ovider Source Comments [facility],non-owned Affiliates and Associated Physician Practices is amultiple site organization consisting of ambulatory clinics and hospital sitesin [place], [place], [place] and [place]. This disclosure is being madepursuant to the Care Everywhere program and may not contain all information available regarding this patient. Last updated 17.[facility] Allergies No known active allergies Medications * [...] migh t be different from the original. [employer] form completed. Diapers given. 07/22/2023, [...] continue to discuss [email or web address] handout provided in prydeinig MOF: breast Discussed how to obtain breast [...] negative Assessment & Plan (04/15/2023 3:59 PM SPORTS PHYSIOTHERAPIST): S/p antibiotics DIEGO sent today AMA (advanced [...] weeks Assessment & Plan (04/15/2023 3:59 PM SPORTS PHYSIOTHERAPIST): NIPT LR LD ASA rx resent Assessment & Plan (03/19/2023 12:26 PM SPORTS PHYSIOTHERAPIST): 1. NIPT collected 03/19/23 2. ASA 162mg QD to be started at 12w, Rx'ed on 03/19/23 Spondylosis 03/19/2023 Overview (03/19/2023): 1. Spondylosis s/p diskectomy 1. Done at [facility] in 2019 2. Anterior cervical diskectomy and [...] VB Assessment & Plan (04/15/2023 3:59 PM SPORTS PHYSIOTHERAPIST): Denies VB Assessment & Plan (03/19/2023 12:24 PM SPORTS PHYSIOTHERAPIST): Denies vaginal bleeding Positive urine drug screen 03/19/2023 Overview (03/19/2023): Cocaine + @ NOB. 03/19/23: Pt denies Cocaine Use. Pt educated on Risks of use including abruption, hypertension and . Assessment & Plan (03/19/2023 12:19 PM SPORTS PHYSIOTHERAPIST): 03/19/23: Pt denies Cocaine Use. Pt educated on Risks of use including abruption, hypertension and . H/O forceps delivery in prior , current ly 05/09/2014 Overview (03/19/2023): 1. H/o operative delivery 1. G2 - forceps delivery for poor maternal effort, @ 39w4d Language barrier 05/09/2014 Overview (05/09/2014): Greek speaking Chronic hypertension complic ating or reason [...] Assymptomtic Assessment & Plan (04/15/2023 4:00 PM SPORTS PHYSIOTHERAPIST): -Normotensive -24 hour urine supplies provided today Assessment & Plan (03/19/2023 12:16 PM SPORTS PHYSIOTHERAPIST): - Baseline PreE: CBC/CMP: WNL at NOB - Please provide patient with 24 hour urine collection supplies at next visit H/O: 08/20/2011 Overview (07/25/2023): 1. H/o CS x1 1. G1- pLTCS in 2006 for AOD at 6cm @ 40w 2. Successful x2 - @ [facility] 3. Done in [place], [place] [facility]. Operative note (under media tab) wnl [...] TOLAC Assessment & Plan (04/15/2023 4:01 PM SPORTS PHYSIOTHERAPIST): -PNC up to date -CC: vaginal discharge. Reviewed normal physiologic changes in . Reviewed vulvar care guidelines. Encouraged to seek evaluation if odor or irritation develops. Assessment & Plan (03/19/2023 12:29 PM SPORTS PHYSIOTHERAPIST): NIPT not collected Cyst of right ovary 03/19/2023 07/25/19 Overview (03/19/2023): 02/19/23: The right ovary appears normal and contains a simple cyst consistent with a corpus luteal cyst. 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 06/28/2023 07/25/2023 Overview (06/28/2023): seeing filler spreader Obstructive sleep apnea syndrome 05/21/2020 06/28/1907/25/2023 Overview (06/28/2023): seeing filler spreader Pulmonary hypertension 05/21/2020 06/28/202307/24 Overview (06/28/2023): getting echo per filler spreader Cervical spine instability 01/31/2020 1 05/20/2022 Mixed hyperlipidemia 08/03/2019 06/28/2023 024 Steatosis of liver 01/05/2018 06/28/2023 Fibroid uterus 05/02/2014 07/25/2023 Supervision of other high-risk 08/20/2011 03/19/2023 Overview (02/05/2015): A-/I/-/-, NR Pap normal 09/05/13 GC/CT neg S/p flu GCT: 109 GBS neg 08/18 Encounters Date Type Department Care Team Description 09/06/2024 3:37 PM CDT - 09/06/2024 4:16 PM [place]T [place] [address] Vaginal bleeding Discharge Disposition: Home or Self Care from Last 3 Months Immunizations Immunization Administration Dates Next Due COVID Nexus eWater 12+YR 30MCG/0.3mL 02/19/2023 INFLUENZA VACCINE, QUADR. (F [...] medical care, and heating? Somewhat hard 10/03/2023 [facility] Occupat ional Health - Occupational Stress [...] place to sleep or slept in a prison (including now)? Yes 10/03/2023 [place] Depression Scale Answer Date Recorded [place] Depression Scale Total 0 10/03/2023 The thought of harming myself has occurred to me . Never 10/03/2023 Comments No Sex and Gender Information Value Date Recorded Sex Assigned at Female 09/01/2023 7:08 PM CDT Legal Sex Female 7:02 PM SPORTS PHYSIOTHERAPIST Gender Identity Not on file Sexual Orientation Not on file Last Filed Vital Signs Vital Sign Reading Time Taken Comments Blood Pressure 157/110 09/06/2024 2:07 PM CDT Pulse 82 09/06/2024 2:07 PM CDT Temperature 36.7 C (98.1 F) 09/06/2024 2:07 PM CDT Respiratory Rate 16 09/06/2024 2:07 PM CDT Oxygen Saturation 99% 09/06/2024 2:07 PM CDT Inhaled Oxygen Concentration - - Weight 87.5 kg (193 lb) 09/06/2024 2:07 PM CDT Height 152.4 cm (5') 09/06/2024 2:07 PM CDT Body Mass Index 37.69 09/06/2024 2:07 PM CDT Plan of Treatment Upcoming Encounters Date Type Department Care Team (Late st Contact Info) Description 10/04/2024 2:15 PM CDT Appointment [facility]/ EVALUATION UNIT [address] [place] [address] Health Maintenance Due Date Last Done Comments HEPATITIS B VACCINE (1 of 3 - 19+ 3-dose series) 2005 COVID-19 VACCINE ( - 2023- season) 2023 02/19/2023, 10/10/2020, 09/19/2020 DEPRESSION SCREENING [...] this topic Medical Devices Implanted Type Area Baseball Glove Shaper Device Identifier Shelf Expiration Date Model / Serial / Lot Graft Bone 1-4mm 15ml Crsh Fsh Frzn Canc Implanted:Qty : 1 on 01/31/2020 by Gurjit Munguia MD at [facility] N/A: Spine Cervical All[employer]ource 07/08/2022 [id number] / / [id number] Kit Bngf 20mm 12mm Infs 2xs Spne Rhbmp-2 Implanted:Qty : 1 on 01/31/2020 by Gurjit Munguia MD at [facility] N/A: Spine Cervical Medtronic Sofamor [employer]ane[employer] 11/28/2020 [id number] / / [id number] Sub Bngf Progenix Dbm Bvn Clgn Ptty 1ml Implanted:Qty : 1 on 01/31/2020 by Gurjit Munguia MD at [facility] N/A: Spine Cervical Spinal Graft [employer] 10/09/2020 [id number] / / [id number] F3d Cervical 14.5mm X12mm Implanted:Qty : 2 on 01/31/2020 by Gurjit Munguia MD at [facility] N/A: Spine Cervical [employer] 06/13/2024 [id number] / / [id number] Screw 4mm 15mm Slf-Tap Va Spne Crv Ant Implanted:Qty : 2 on 01/31/2020 by Gurjit Munguia MD at [facility] N/A: Spine Cervical Medtronic Sofamor [employer]ane[employer] [id number] / / Screw 4mm 14mm Slf-Tap Va Spne Crv Ant Implanted:Qty : 4 on 01/31/2020 by Gurjit Munguia MD at [facility] N/A: Spine Cervical Medtronic Sofamor [employer] [id number] / / Plate Lck Spne Crv Ant 40mm Atlnts Implanted:Qty : 1 on 01/31/2020 by Gurjit Munguia MD at [facility] N/A: Spine Cervical Medtronic Sofamor [employer] [id number] / / Procedures Procedure Name Priority Date/Time Associated Diagnosis Comments URINALYSIS REFLEX TO MICROSCOPIC NO CULTURE STAT 09/06/2024 3:26 PM CDT TYPE + SCREEN PANEL STAT 09/06/2024 2 :17 PM CDT HCG BETA BLOOD QUANTITATIVE STAT 09/06/2024 2:17 PM CDT BASIC METABOLIC PANEL (CALCIUM TOTAL) STAT 09/06/2024 2:17 PM CDT CBC W AUTO DIFFERENTIAL STAT 09/06/2024 2:17 PM CDT HIV-1 HIV-2 ANTIBODY + HIV P24 AG PANEL Routine 07/22/2023 4:09 PM CDT 28 weeks gestation of PAP IG LB+HPV APTIMA Routine 02/19/2023 9:22 AM SPORTS PHYSIOTHERAPIST H/O: HEPATITIS C ANTIBODY Routine 02/19/2023 9:21 AM SPORTS PHYSIOTHERAPIST H/O: from Last 3 Months or Most Recently Relevant to Health Maintenance Results * (ABNORMAL) URINALYSIS REFLEX TO MICROSCOPIC NO CULTURE (09/06/2024 3:26 PM CDT) Color UA Colorless(A ) Yellow, Straw 09/06/2024 3:33 PM CDT [facility] Clarity UA Turbid(A) Clear 09/06/2024 3:33 PM CDT [facility] Glucose UA Normal Normal 09/06/2024 3:33 PM CDT [facility] Bilirubin UA Negative Negative 09/06/2024 3:33 PM CDT [facility] Ketone UA Negative Negative 09/06/2024 3:33 PM CDT [facility] Specific Paige UA 1.012 1.005 - 1.030 09/06/2024 3:33 PM CDT [facility] Blood UA 3+(A) Negative 09/06/2024 3:33 PM CDT [facility] pH UA 6.0 5.0 - 8.0 09/06/2024 3:33 PM CDT [facility] Protein UA Negative Negative 09/06/2024 3:33 PM CDT [facility] Urobilinogen UA Normal Normal mg/dL 09/06/2024 3:33 PM CDT [facility] Nitrite UA Negative Negative 09/06/2024 3:33 PM CDT [facility] Leukocyte Esterase UA Negative Negative 09/06/2024 3:33 PM CDT [facility] RBC UA >100(A) 0 - 5 # /hpf 09/06/2024 3:33 PM CDT [facility] WBC UA 0-5 0 - 5 # /hpf 09/06/2024 3:33 PM CDT [facility] Bacteria UA None Seen None Seen 09/06/2024 3:33 PM CDT [facility] Squamous Epithelial Cells 0-2 0 - 5 /hpf 09/06/2024 3:33 PM CDT [facility] Mucus UA 1+ /LPF 09/06/2024 3:33 PM CDT [facility] Urine URINE SPECIMEN OBTAINED BY CLEAN CATCH PROCEDURE / Unknown Collection / Unknown 09/06/2024 3:26 PM CDT 09/06/2024 3:26 PM CDT Narrative [facility] - 09/06/2024 3:33 PM CDT us Sb [facility] - URINALYSIS ORDERABLE S Final Result [facility] [address] [place] [address] * TYPE + SCREEN PANEL (09/06/2024 2:17 PM CDT) ABO Rh A NEG 09/06/2024 3:00 PM CDT [facility] Comment:History checked. Antibody Screen NEG 06/09/202 5 3:00 PM CDT [facility] Blood Bank BLOOD SPECIMEN / Unknown Venipuncture / Unknown 09/06/2024 2:17 PM CDT 09/06/2024 2:23 PM CDT us Sb [facility] - BLOOD BANK ORDERABLE S Final Result [facility] [address] [phone] * CBC W AUTO DIFFERENTIAL (09/06/2024 2:17 PM CDT) WBC 7.5 4.0 - 10.7 x10E9/L 09/06/2024 2:26 PM CDT [facility] RBC Count 4.24 3.90 - 5.20 x10E12/L 09/06/2024 2:26 PM CDT [facility] Hemoglobin 12.8 11.9 - 15.8 g/dL 09/06/2024 2:26 PM CDT [facility] Hematocrit 36.6 34.8 - 46.1 % 09/06/2024 2:26 PM CDT [facility] MCV 86.3 80.0 - 98.0 fL 09/06/2024 2:26 PM CDT [facility] MCH 30.2 26.7 - 33.6 pg 09/06/2024 2:26 PM CDT [facility] MCHC 35.0 31.7 - 36.3 g/dL 09/06/2024 2:26 PM CDT [facility] RDW-CV 12.2 11.3 - 14.8 % 09/06/2024 2:26 PM CDT [facility] Platelet Count 263 150 - 420 x10E9/L 09/06/2024 2:26 PM CDT [facility] MPV 9.5 7.8 - 11.4 fL 09/06/2024 2:26 PM CDT [facility] Neutrophil % 53.8 41.0 - 74.0 % 09/06/2024 2:26 PM CDT [facility] Lymphocyte % 37.6 17.0 - 47.0 % 09/06/2024 2:26 PM CDT [facility] Monocyte % 5.7 3.0 - 11.0 % 09/06/2024 2:26 PM CDT [facility] Eosinophil % 2.1 0.0 - 7.0 % 09/06/2024 2:26 PM CDT [facility] Basophil % 0.5 0.0 - 1.6 % 09/06/2024 2:26 PM CDT [facility] Immature Granulocytes % 0.3 0.0 - 1.0 % 09/06/2024 2:26 PM CDT [facility] Neutrophil Absolute 4.03 1.60 - 7.50 x10E9/L 09/06/2024 2:26 PM CDT [facility] Lymphocyte Absolute 2.82 1.00 - 4.40 x10E9/L 09/06/2024 2:26 PM CDT [facility] Monocyte Absolute 0.43 0.15 - 1.00 x10E9/L 09/06/2024 2:26 PM CDT [facility] Eosinophil Absolute 0.16 0.00 - 0.60 x10E9/L 09/06/2024 2:26 PM CDT [facility] Basophil Absolute 0.04 0.00 - 0.13 x10E9/L 09/06/2024 2:26 PM CDT [facility] Blood BLOOD SPECIMEN / Unknown Venipuncture / Unknown 09/06/2024 2:17 PM CDT 09/06/2024 2:23 PM CDT us Sb [facility] - HEMATOLOGY ORDERABLE S Final Result [facility] [address] [place] [address] * (ABNORMAL) BASIC METABOLIC PANEL (CALCIUM TOTAL) (09/06/2024 2:17 PM CDT) [facility] Glucose 108(H) 70 - 99 mg/dL 09/06/2024 2:37 PM CDT [facility] Sodium 140 136 - 145 mmol/L 09/06/2024 2:37 PM CDT [facility] Potassium 3.6 3.5 - 5.1 mmol/L 09/06/2024 2:37 PM CDT [facility] Chloride 112(H) 98 - 107 mmol/L 09/06/2024 2:37 PM CDT [facility] CO2 20(L) 22 - 29 mmol/L 09/06/2024 2:37 PM CDT [facility] Calcium 9.3 8.4 - 10.4 mg/dL 09/06/2024 2:37 PM CDT [facility] Anion Gap 8 6 - 16 mmol/L 09/06/2024 2:37 PM CDT [facility] BUN 8 5.3 - 18.7 mg/dL 09/06/2024 2:37 PM CDT [facility] Creatinine 0.72 0.57 - 1.11 mg/dL 09/06/2024 2:37 PM CDT [facility] eGFR by CKD-EPI >90 >=90 mL/min/1.7 3 m2 09/06/2024 2:37 PM CDT [facility] Blood BLOOD SPECIMEN / Unknown Venipuncture / Unknown 09/06/2024 2:17 PM CDT 09/06/2024 2:23 PM CDT us Sb [facility] - CHEMISTRY ORDERABLES Final Result Performing Organization Address City/State/[facility] Co de Phone Number [facility] [address] [place] [address] * HCG BETA BLOOD QUANTITATIVE (09/06/2024 2:17 PM CDT) hCG Quantitative <2.42 mIU/mL 09/07/19 25 2:44 PM CDT [facility] Blood BLOOD SPECIMEN / Unknown Venipuncture / Unknown 09/06/2024 2:17 PM CDT 09/06/2024 2:23 PM CDT Narrative [facility] - 09/06/2024 2:44 PM CDT hCG Reference Range, mIU/mL: Non Females 0-6.0 Perimenopausal Females ages 41-55* 0-7.7 Postmenopausal Females age >55* 0-14 Females, Weeks after Last Menstrual Period 0.2-1 week 5-50 1 - 2 weeks 50-500 2 - 3 weeks 100-5000 3 - 4 weeks 500-10,000 4 - 5 weeks 1000-50,000 5 - 6 weeks 10,000-100,000 6 - 8 weeks 15,000-200,000 2 - 3 months 10,000-100,000 Trophoblastic Disease >100,000 *In higher than expected hCG in females > age 40, a serum FSH >20 IU/L makes unlikely. us Sb [facility] - CHEMISTRY ORDERABLES Final Result Performing Organization Address [facility] Co de Phone Number [facility] [address] [place] [id number] * HIV-1 HIV-2 ANTIBODY + HIV P24 AG PANEL (07/22/2023 4:09 PM CDT) HIV1/2 Ab + P24 Ag Non Reactive Non Reactive 07/22/2023 5:03 PM CDT [facility] Blood BLOOD SPECIMEN / Unknown Venipuncture / Unknown 07/22/2023 4:09 PM CDT 07/22/2023 4:19 PM CDT Narrative [facility] - 07/22/2023 5:03 PM CDT No Laboratory evidence of HIV infection. Sadia Jewell MD LAB - CHEMISTRY ORDERABLES Final Result Performing Organization Address [facility] de Phone Number [facility] [address] [place] [id number] * PAP IG LB+HPV APTIMA (02/19/2023 9:22 AM SPORTS PHYSIOTHERAPIST) Diagnosis Comment 02/24/2023 11:06 PM SPORTS PHYSIOTHERAPIST [facility] ([facility]) Comment:NEGATIVE FOR INTRAEP ITHELIAL LESION OR MALIGNANCY. Specimen Adequacy Comment 023 11:06 PM SPORTS PHYSIOTHERAPIST [facility] ([facility]) Comment: Satisfactory for evaluation. Endocervical and/or squamous metaplastic cells (endocervical component) are present. Performed by Comment 02/24/2023 11:06 PM SPORTS PHYSIOTHERAPIST [facility] ([facility] Comment:Yue Horne, Cytotec hnologist (ASCP) Comment . 02/24/2023 11:06 PM SPORTS PHYSIOTHERAPIST [facility] ([facility]) Note Comment 02/24/2023 11:06 PM SPORTS PHYSIOTHERAPIST [facility] ([facility]) Comment: The Pap smear is a screening test designed to aid in the detection of premalignant and malignant conditions of the uterine cervix. It is not a diagnostic procedure and should not be used as the sole means of detecting cervical cancer. Both false-positive and false-negative reports do occur. [facility] CPT Code Automation Comment 02/24/2023 11:06 PM SPORTS PHYSIOTHERAPIST [facility] ([facility]) Comment: This liquid based ThinPrep(R) pap test was screened with the use of an image guided system. Human papillomavirus Aptima Negative Negative 02/24/2023 11:06 PM [facility]) Comment: This nucleic acid amplification test detects fourteen high-risk HPV types (16,18,31,33,35,39,45,51,52,56,58,59,66,68) without differentiation. Pathology/Cytolo gy PART OF UTERINE CERVIX / Unknown Collection / Unknown 02/19/2023 9:22 AM SPORTS PHYSIOTHERAPIST 02/19/2023 10:14 AM SPORTS PHYSIOTHERAPIST Narrative [facility] ([facility]) - 02/24/2023 11:06 PM SPORTS PHYSIOTHERAPIST Performed at: 01 - [facility] [employer] [address] [place] [id number] [employer] Receiving Clerk: Carlos Alonso MD, Phone: [phone] Performed at: 02 - [address] [id number] [employer] Receiving Clerk: Emiliana Watson MD, Phone: [phone] Performed at: 03 - [address] [id number] [employer] Receiving Clerk: Emiliana Watson MD, Phone: [phone] Specimen Comment: No. of containers..01 ThinPrep Vial us Israel Choudhury MD LAB - PATHOLOGY/CYTOLOGY ORDERAB LES Final Result [facility] ([facility]) [address] [place] [address] * HEPATITIS C ANTIBODY (02/19/2023 9:21 AM SPORTS PHYSIOTHERAPIST) HCV Antibody Screen Non Reactive Non Reactive 02/19/2023 10:57 AM SPORTS PHYSIOTHERAPIST [facility] Blood BLOOD SPECIMEN / Unknown Venipuncture / Unknown 02/19/2023 9:21 AM SPORTS PHYSIOTHERAPIST 02/19/2023 9:49 AM SPORTS PHYSIOTHERAPIST Narrative [facility] - 02/19/2023 10:57 AM SPORTS PHYSIOTHERAPIST Non Reactive - Antibodies to Hepatitis C virus (HCV) were not detected, result does not exclude early acute HCV infection. Israel Choudhury MD LAB - CHEMISTRY ORDERABLES Final Result [facility] [address] [place] [address] from Last 3 Months or Most Recently Relevant to Health Maintenance Insurance [employer] Advance Directives * Full Code (Latest Code [...] 10:44 AM 09/10/2011 2:21 AM Care Teams Facilities Maintenance Worker Relationship Specialty Start Date End Date [facility] [address] [place] [address] PCP - General Family Medicine 02/01/23
--- OUTSIDE RECORDS SUMMARY | 2024-09-07 11:42 | XMS_ITS | Encounter Summary ---
Author Organization [facility] Address [address] [place] [address] Care Team Providers Care Presser Hand Name Role Phone [facility] Primary [facility] Pr ovider Reason for Visit * Reason Comments Vaginal Bleeding Concerned for crampi ng and vaginal bleeding for 2 days, states she has not had a menstrual cycle since she had her baby last July and she was breast feeding so she thought it was normal Encounter Details Date Type Department Care Team (Late st Contact Info) Description 09/06/2024 3:37 PM CDT - 09/06/2024 4:16 PM CDT Emergency ER at [facility] [address] [place] [id number] Vaginal bleeding Discharge Disposition: Home or Self Care Social History Tobacco Use Types Packs/Day Years Used Date Smoking Tobacco: Never Smokeless Tobacco: Never Alcohol Use Standard Drinks/Week Comments No 0 [...] and heating? Somewhat hard 10/03/2023 [facility] - Occupational Stress [...] place to sleep or slept in a [place] facility (including now)? Yes 10/03/2023 [place] Depression Scale Answer Date Recorded [place] Depression Scale Total 0 10/03/2023 The thought of harming myself has occurred to me . 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 Answer Date of Assessment Author No 08/26/2023 10:15 PM CDT Alli Foreman RN * Is person blind or have serious difficulty seeing? Answer Date of Assessment Author No 08/26/2023 10:15 PM CDT Alli Foreman RN * Does person have serious difficulty walking/climbing stairs? Answer Date of Assessment Author No 08/26/2023 10:15 PM CDT Alli Foreman RN * Does person have difficulty dressing/bathing? Answer Date of Assessment Author No 08/26/2023 10:15 PM CDT Alli Foreman RN * Does person have difficulty doing errands alone? Answer Date of Assessment Author No 08/26/2023 10:15 PM CDT Alli Foreman RN documented as of this encounter Mental Status * Does person have difficulty concentrating/remembering/making decisions? Answer Entry Date Author No 08/26/2023 10:15 PM CDT Alli Foreman RN documented in this encounter Discharge Instructions * Discharge Instructions* Sb Zhang PA - 09/06/2024 3:34 PM CDT You have been evaluated in the Emergency Department today for your vaginal bleeding. Your evaluation suggests that your symptoms are due to this start of a menstrual. Please follow up with your primary care physician within two days. Please follow up with your hand spray operator within 2 days. Return to the Emergency Department if you experience worsening or uncontrolled bleeding, shortness of breath, feeling lightheaded, chest tightness, abdominal cramping, severe abdominal pain, fevers,vomiting, or for any other concerning symptoms. Thank you for choosing us for your care. documented in this encounter Medications at Time of Discharge acetaminophen (Tylenol) 500 MG capsule Take 2 (two) capsules by mouth every 6 hours as needed for Fever or Pain 60 capsule 1 08/29/2023 docusate sodium (Colace) 100 MG capsule Take 1 (one) capsule by mouth 2 times daily 60 capsule 1 09/03/2023 docusate sodium (Colace) 100 MG capsule Take 1 (one) capsule by mouth once daily 50 capsule 1 08/29/2023 ibuprofen (Motrin) 600 MG tablet Take 1 (one) tablet by mouth every 6 hours as needed for Pain 40 tablet 1 09/03/2023 ibuprofen (Motrin) 600 MG tablet Take 1 (one) tablet by mouth every 6 hours as needed for Pain 50 tablet 1 08/29/2023 NIFEdipine CR osmotic 24hr (Adalat CC) 60 MG tablet Take 1 (one) tablet by mouth once daily 30 tablet 1 09/03/2023 polyethylene glycol 3350 (Miralax) 17 GM/SCOOP powder Take 17 (seventeen) g by mouth once daily 119 g 08/29/2023 documented as of this encounter Plan of Treatment Upcoming Encounters Date Type Department Care Team (Late st Contact Info) Description 10/04/2024 2:15 PM CDT Appointment [facility] MATERNAL/ EVALUATION UNIT [facility] [address] [place] [address] documented as of this encounter Procedures Procedure Name Priority Date/Time Associated Diagnosis Comments URINALYSIS REFLEX TO MICROSCOPIC NO CULTURE STAT 09/06/2024 3:26 PM CDT TYPE + SCREEN PANEL STAT 09/06/2024 2 :17 PM CDT CBC W AUTO DIFFERENTIAL STAT 09/06/2024 2:17 PM CDT BASIC METABOLIC PANEL (CALCIUM TOTAL) STAT 09/06/2024 2:17 PM CDT HCG BETA BLOOD QUANTITATIVE STAT 09/06/2024 2:17 PM CDT documented in this encounter Results * (ABNORMAL) URINALYSIS REFLEX TO MICROSCOPIC NO CULTURE (09/06/2024 3:26 PM CDT) Color UA Colorless(A ) Yellow, Straw 09/06/2024 3:33 PM CDT [facility] Clarity UA Turbid(A) Clear 09/06/2024 3:33 PM CDT [facility] Glucose UA Normal Normal 09/06/2024 3:33 PM CDT [facility] Bilirubin UA Negative Negative 09/06/2024 3:33 PM CDT [facility] Ketone UA Negative Negative 09/06/2024 3:33 PM CDT [facility] Specific Cisco UA 1.012 1.005 - 1.030 09/06/2024 3:33 PM CDT [facility] Blood UA 3+(A) Negative 09/06/2024 3:33 PM CDT [facility] pH UA 6.0 5.0 - 8.0 09/06/2024 3:33 PM CDT [facility] Protein UA Negative Negative 09/06/2024 3:33 PM CDT [facility] Urobilinogen UA Normal Normal mg/dL 09/06/2024 3:33 PM CDT [facility] Nitrite UA Negative Negative 09/06/2024 3:33 PM CDT [facility] Leukocyte Esterase UA Negative Negative 09/06/2024 3:33 PM CDT [facility] RBC UA >100(A) 0 - 5 # /hpf 09/06/2024 3:33 PM CDT [facility] WBC UA 0-5 0 - 5 # /hpf 09/06/2024 3:33 PM CDT [facility] Bacteria UA None Seen None Seen 09/06/2024 3:33 PM CDT [facility] Squamous Epithelial Cells 0-2 0 - 5 /hpf 09/06/2024 3:33 PM CDT [facility] Mucus UA 1+ /LPF 09/06/2024 3:33 PM CDT [facility] Urine URINE SPECIMEN OBTAINED BY CLEAN CATCH PROCEDURE / Unknown Collection / Unknown 09/06/2024 3:26 PM CDT 09/06/2024 3:26 PM CDT Narrative [facility] - 09/06/2024 3:33 PM CDT us Sb [facility] - URINALYSIS ORDERABLE S Final Result [facility] [address] [place] [address] * TYPE + SCREEN PANEL (09/06/2024 2:17 PM CDT) Pathologist [facility] Emergency Department ABO Rh A NEG 09/06/2024 3:00 PM CDT [facility] Comment:History checked. Antibody Screen NEG 3:00 PM CDT [facility] Blood Bank BLOOD SPECIMEN / Unknown Venipuncture / Unknown 09/06/2024 2:17 PM CDT 09/06/2024 2:23 PM CDT [facility] - BLOOD BANK ORDERABLE S Final Result Performing Organization Address [facility] Co de Phone Number [facility] [address] [place] [id number] [phone] * HCG BETA BLOOD QUANTITATIVE (09/06/2024 2:17 PM CDT) Pathologist [facility] Emergency Department hCG Quantitative <2.42 mIU/mL 09/07/19 25 2:44 PM CDT [facility] Blood BLOOD SPECIMEN / Unknown Venipuncture / Unknown 09/06/2024 2:17 PM CDT 09/06/2024 2:23 PM CDT Narrative [facility] - 09/06/2024 2:44 PM CDT hCG [...] a serum FSH >20 IU/L makes unlikely. [facility] - CHEMISTRY ORDERABLES Final Result Performing Organization Address City/[facility]/ZIP Co de Phone Number [facility] [address] [place] [id number] * (ABNORMAL) BASIC METABOLIC PANEL (CALCIUM TOTAL) (09/06/2024 2:17 PM CDT) Pathologist [facility] Emergency Department Glucose 108(H) 70 - 99 mg/dL 09/06/2024 2:37 PM CDT [facility] Sodium 140 136 - 145 mmol/L 09/06/2024 2:37 PM CDT [facility] Potassium 3.6 3.5 - 5.1 mmol/L 09/06/2024 2:37 PM CDT [facility] Chloride 112(H) 98 - 107 mmol/L 09/06/2024 2:37 PM CDT [facility] CO2 20(L) 22 - 29 mmol/L 09/06/2024 2:37 PM CDT [facility] Calcium 9.3 8.4 - 10.4 mg/dL 09/06/2024 2:37 PM CDT [facility] Anion Gap 8 6 - 16 mmol/L 09/06/2024 2:37 PM CDT [facility] BUN 8 5.3 - 18.7 mg/dL 09/06/2024 2:37 PM CDT [facility] Creatinine 0.72 0.57 - 1.11 mg/dL 09/06/2024 2:37 PM CDT [facility] eGFR by CKD-EPI >90 >=90 mL/min/1.7 3 m2 09/06/2024 2:37 PM CDT [facility] Blood BLOOD SPECIMEN / Unknown Venipuncture / Unknown 09/06/2024 2:17 PM CDT 09/06/2024 2:23 PM CDT us Sb [facility] - CHEMISTRY ORDERABLES Final Result [facility] [address] [place] [address] * CBC W AUTO DIFFERENTIAL (09/06/2024 2:17 PM CDT) Pathologist [facility] Emergency Department WBC 7.5 4.0 - 10.7 x10E9/L 09/06/2024 2:26 PM CDT [facility] RBC Count 4.24 3.90 - 5.20 x10E12/L 09/06/2024 2: PM CDT [facility] Hemoglobin 12.8 11.9 - 15.8 g/dL 09/06/2024 2: PM CDT [facility] Hematocrit 36.6 34.8 - 46.1 % 09/06/2024 2: PM CDT [facility] MCV 86.3 80.0 - 98.0 fL 09/06/2024 2: PM CDT [facility] MCH 30.2 26.7 - 33.6 pg 09/06/2024 2: PM CDT [facility] MCHC 35.0 31.7 - 36.3 g/dL 09/06/2024 2: PM [facility] RDW-CV 12.2 11.3 - 14.8 % 09/06/2024 2: [facility] Platelet Count 263 150 - 420 x10E9/L 09/06/2024 2: PM [facility] MPV 9.5 7.8 - 11.4 fL 09/06/2024 2: PM CDT [facility] Neutrophil % 53.8 41.0 - 74.0 % 09/06/2024 2: PM CDT [facility] Lymphocyte % 37.6 17.0 - 47.0 % 09/06/2024 2: PM CDT [facility] Monocyte % 5.7 3.0 - 11.0 % 09/06/2024 2: PM CDT [facility] Eosinophil % 2.1 0.0 - 7.0 % 09/06/2024 2: PM CDT [facility] Basophil % 0.5 0.0 - 1.6 % 09/06/2024 2: PM CDT [facility] Immature Granulocytes % 0.3 0.0 - 1.0 % 09/06/2024 2: PM CDT [facility] Neutrophil Absolute 4.03 1.60 - 7.50 x10E9/L 09/06/2024 2: PM CDT [facility] Lymphocyte Absolute 2.82 1.00 - 4.40 x10E9/L 09/06/2024 2: PM CDT [facility] Monocyte Absolute 0.43 0.15 - 1.00 x10E9/L 09/06/2024 2:26 PM CDT [facility] Eosinophil Absolute 0.16 0.00 - 0.60 x10E9/L 09/06/2024 2:26 PM CDT [facility] Basophil Absolute 0.04 0.00 - 0.13 x10E9/L 09/06/2024 2:26 PM CDT [facility] Blood BLOOD SPECIMEN / Unknown Venipuncture / Unknown 09/06/2024 2:17 PM CDT 09/06/2024 2:23 PM CDT us Sb [facility] - HEMATOLOGY ORDERABLE S Final Result [facility] [address] [place] [address] documented in this encounter Visit Diagnoses Diagnosis Vaginal bleeding Other specified noninflammatory disorder of vagina documented in this encounter Care Teams Presser Hand Relationship Specialty Start Date End Date [facility] [address] [place] [id number] PCP - General Family Medicine 02/01/23 documented as of this encounter
--- OUTSIDE RECORDS SUMMARY | 2024-09-07 11:42 | XMS_ITS | Data Portability ---
Author Organization [facility] Address [address] [place] [address] Care Team Providers Care Intern Product Marketing Manager Name Role Phone HORACIO TUTTLE Primary Care [...] DO Not Attach Compendium, Do Not Delete/merge, [id number] 3 13:04:22 lipid panel, serum 2021 022 [facility], [address] [place] [address], [address], [place], [address], 08:20:23 TSH, ultra-sensi tive, serum 2021 022 [facility], [address], [address], [place], [address], 2 08:20:24 CBC w/ auto diff 2021 [facility], [address], [address], [place], [address], 2 08:20:22 CMP, serum or plasma 2021 [facility], [address], [address], [place], [address], 2 08:20:22 LAVONNE (antinuclea r antibodies) panel, serum 2020 [facility] [place] ([facility]), [address] [place], [address], 1 17:08:46 Referral orthopedic surgeon referral - comminuted right radial head fracture with block to ROM 2021 [facility], [address] [place] [address], [address] [place] [address], [place], [address], 3 12:23:12 Procedures None recorded. Surgeries None recorded. Imaging None recorded. Medication Orders 28 mg iron-800 mcg tablet 2022 023 [facility], [address] [place] [address], [id number], 3 13:38:39 atorvastati n 20 mg tablet 2021 [facility], [address] [place] [address], [id number], 2 12:41:19 chlorthalid one 25 mg tablet 2021 [facility], [address], [place], [id number], 12:41:20 Patient TargetsNo targets recorded. Patient Instructions Encounter Date Encounter Id Patient Instructions Last Modified By Organization Details Last Modified Time 12/12/2021 [id number] vacuna contra la influenza (gripe): instrucciones de [...] [email or web address] Not available 12/12/2021 12:32:20 01/29/2023 [id number] aprenda acerca d el peso saludable - [...] Available [facility] ([facility]) [address], [place], [address], 04/27/2020 19:27:41 04/27/19 21 04/27/2020 PT/IN R INR 1.0 0.4-2. 0 Not Available [facility] ([facility]) [address], [place], [address], 04/27/2020 19:27:41 04/27/19 21 04/27/2020 PT/IN R [email or web address] Please note Refere nce Range has change d Not Available [facility] ([facility]) [address], [place], [address], 04/27/2020 19:27:41 04/27/19 21 04/27/2020 CBC w/ auto diff WBC 9.4 K/uL 3.4-10 .8 Not Available [facility] (Lab) [address], [place], [address], 04/27/2020 19:29:38 04/27/19 21 04/27/2020 CBC w/ auto diff red blood count 4.3 M/uL 4.2-5. 4 Not Available [facility] (Lab) [address], [place], [address], 04/27/2020 19:29:38 04/27/19 21 04/27/2020 CBC w/ auto diff hemoglobin 12.7 g/dL 11.5-1 5.5 Not Available [facility] ([facility]) [address] [place], [address], 04/27/2020 19:29:38 04/27/19 21 04/27/2020 CBC w/ auto diff hematocrit 38.3 % 36.0-4 8.0 Not Available [facility] ([facility]) [address] [place], [address], 04/27/2020 19:29:38 04/27/19 21 04/27/2020 CBC w/ auto diff MCV 89 fL 80-95 Not Available [facility] ([facility]) [address] [facility], [place], [address], 04/27/2020 19:29:38 04/27/19 21 04/27/2020 CBC w/ auto diff MCH 29 pg 27-32 Not Available [facility] ([facility]) [address] [facility], [place], [address], 04/27/2020 19:29:38 04/27/19 21 04/27/2020 CBC w/ auto diff MCHC 33 g/dL 32-36 Not Available [facility] ([facility]) [address] [facility], [place], [address], 04/27/2020 19:29:38 04/27/19 21 04/27/2020 CBC w/ auto diff platelets 319 K/uL 155-37 9 Not Available [facility] ([facility]) [address] [facility], [place], [address], 04/27/2020 19:29:38 04/27/19 21 04/27/2020 CBC w/ auto diff RDW 12.7 % 11.5-1 4.5 Not Available [facility] ([facility]) [address] [facility], [place], [address], 04/27/2020 19:29:38 04/27/19 21 04/27/2020 CBC w/ auto diff MPV 9.9 fL 8.9-12 .7 Not Available [facility] ([facility]) [address] [facility], [place], [address], 04/27/2020 19:29:38 04/27/19 21 04/27/2020 CBC w/ auto diff neutrophils absolute 4.9 K/uL 1.4-7. 0 Not Available [facility] (Lab) [address] [place], [address], 04/27/2020 19:29:38 04/27/19 21 04/27/2020 CBC w/ auto diff lymphs (absolute) 3.6 K/uL 0.7-3. 1 high Not Available [facility] ([facility]) [address] [place], [address], 04/27/2020 19:29:38 04/27/19 21 04/27/2020 CBC w/ auto diff monocytes (absolute) 0.6 K/uL 0.1-0. 9 Not Available [facility] ([facility]) [address] [facility], [place], [address], 04/27/2020 19:29:38 04/27/19 21 04/27/2020 CBC w/ auto diff eos (absolute) 0.2 K/uL 0.0-0. 4 Not Available [facility] ([facility]) [address] [facility], [place], [address], 04/27/2020 19:29:38 04/27/19 21 04/27/2020 CBC w/ auto diff baso (absolute) 0.0 K/uL 0.0-0. 3 Not Available [facility] ([facility]) [address] [facility], [place], [address], 04/27/2020 19:29:38 04/27/19 21 04/27/2020 CBC w/ auto diff neut % 52.0 % 40.0-7 4.0 Not Available [facility] ([facility]) [address] [place], [address], 04/27/2020 19:29:38 04/27/19 21 04/27/2020 CBC w/ auto diff lymphs % 38.7 % 14.0-4 6.0 Not Available [facility] ([facility]) [address] [place], [address], 04/27/2020 19:29:38 04/27/19 21 04/27/2020 CBC w/ auto diff mono % 6.5 % 4.0-12 .0 Not Available [facility] ([facility]) [address] [place], [address], 04/27/2020 19:29:38 04/27/19 21 04/27/2020 CBC w/ auto diff eos % 2 % 0-5 Not Available [facility] (Lab) [address] [place], [address], 04/27/2020 19:29:38 04/27/19 21 04/27/2020 CBC w/ auto diff baso % 0.4 % 0.0-1. 0 Not Available [facility] (Lab) [address] [facility], [place], [address], 04/27/2020 19:29:38 04/27/19 21 04/27/2020 BMP, serum or plasm a glucose, serum 100 mg/dL 65-99 high Not Available [facility] ([facility]) [address] [facility], [place], [address], 04/27/2020 20:16:08 04/27/19 21 04/27/2020 BMP, serum or plasm a BUN 13 mg/dL 8-26 Not Available [facility] (Lab) [address] [facility], [place], [address], 04/27/2020 20:16:08 04/27/19 21 04/27/2020 BMP, serum or plasm a creatinine, serum 0.75 mg/dL 0.50-1 .40 Not Available [facility] (Lab) [address] [place], [address], 04/27/2020 20:16:08 04/27/19 21 04/27/2020 BMP, serum or plasm a BUN/creatnin e ratio 17.7 [facility] Available [facility] [address] [place], [address], 04/27/2020 20:16:08 04/27/19 21 04/27/2020 BMP, serum or plasm a sodium, serum 137.5 mEq/L 136.0- 144.0 Not Available [facility] (Lab) [address] [place], [address], 04/27/2020 20:16:08 04/27/19 21 04/27/2020 BMP, serum or plasm a potassium, serum 3.9 mmol/ L 3.5-5. 3 Not Available [facility] (Lab) [address], [place], [address], 04/27/2020 20:16:08 04/27/19 21 04/27/2020 BMP, serum or plasm a chloride, serum 103 mmol/ l 101-11 1 Not Available [facility] (Lab) [address] [place], [address], 04/27/2020 20:16:08 04/27/19 21 04/27/2020 BMP, serum or plasm a carbon dioxide total 23.9 mmol/ L 21.0-3 2.0 Not Available [facility] (Lab) [address] [place], [address], 04/27/2020 20:16:08 04/27/19 21 04/27/2020 BMP, serum or plasm a aniongp 15.0 mmol/ L Not Available [facility] (Lab) [address] [place], [address], 04/27/2020 20:16:08 04/27/19 21 04/27/2020 BMP, serum or plasm a calcium, serum 9.6 mg/dL 8.2-10 .0 Not Available [facility] (Lab) [address] [place], [address], 04/27/2020 20:16:08 04/27/19 21 04/27/2020 BMP, serum or plasm a osmol 275.0 mOsm/ L 275.0- 301.0 Not Available [facility] (Lab) [address] [place], [address], 04/27/2020 20:16:08 04/27/19 21 04/27/2020 BMP, serum or plasm a eGFR, non- AM 95 mL/mi n/1.7 3/m >=60 Not Available [facility] (Lab) [address], [place], [address], 04/27/2020 20:16:08 04/27/19 21 04/27/2020 hepat ic funct ion panel , serum total protein 8.1 g/dL 6.7-8. 2 Not Available [facility] (Lab) [address] [place], [address], 04/27/2020 20:16:09 04/27/19 21 04/27/2020 hepat ic funct ion panel , serum albumin, serum 4.8 g/dL 3.5-5. 5 Not Available [facility] (Lab) [address], [place], [address], 04/27/2020 20:16:09 04/27/19 21 04/27/2020 hepat ic funct ion panel , serum bilt 0.3 mg/dL 0.0-1. 2 Not Available [facility] (Lab) [address], [place], [address], 04/27/2020 20:16:09 04/27/19 21 04/27/2020 hepat ic funct ion panel , serum bild <0.20 mg/dL 0.10-0 .50 Not Available [facility] (Lab) [address], [place], [address], 04/27/2020 20:16:09 04/27/19 21 04/27/2020 hepat ic funct ion panel , serum AST 62.6 U/L 10.0-4 2.0 high Not Available [facility] (Lab) [address] [place], [address], 04/27/2020 20:16:09 04/27/19 21 04/27/2020 hepat ic funct ion panel , serum ALT 106.7 U/L 10.0-6 0.0 high Not Available [facility] (Lab) [address] [place], [address], 04/27/2020 20:16:09 04/27/19 21 04/27/2020 hepat ic funct ion panel , serum alk phos 99.0 IU/L 42.0-1 21.0 Not Available [facility] (Lab) [address] [place], [address], 04/27/2020 20:16:09 04/27/19 21 04/27/2020 hepat ic funct ion panel , serum agratio 1.5 Not Available [facility] (Lab) [address] [facility], [place], [address], 04/27/2020 20:16:09 04/27/19 21 04/28/2020 HbA1c (hemo globi n A1c), blood hemoglobin A1C 5.2 % 4.8-5. 6 . Predi abete s: 5.7 - 6.4 Diabe ann: >6.4 Glyce liz contr ol for adult s with diabe ann: <7.0 Not Available [facility] (Lab) [address] [facility], [place], [address], 04/28/2020 05:11:15 04/27/19 21 04/28/2020 iron + total iron- ирина ng capac ity (TIBC ), serum iron bind.cap.(TI BC) 361 ug/dL 250-45 0 Not Available [facility] (Lab) [address] [place], [address], 04/28/2020 08:16:22 04/27/19 21 04/28/2020 iron + total iron- ирина ng capac ity (TIBC ), serum UIBC 304 ug/dL 131-42 5 Not Available [facility] (Lab) [address] [place], [address], 04/28/2020 08:16:22 04/27/19 21 04/28/2020 iron + total iron- ирина ng capac ity (TIBC ), serum iron, serum 57 ug/dL 27-159 Not Available [facility] (Lab) [address] [place], [address], 04/28/2020 08:16:22 04/27/19 21 04/28/2020 iron + total iron- ирина ng capac ity (TIBC ), serum iron saturation 16 % 15-55 Not Available [facility] (Lab) [address] [place], [address], 04/28/2020 08:16:22 04/27/19 21 04/28/2020 LAVONNE (anti [...] - 9 Posit bria >9 Not Available [facility] (Lab) [address] [place], [address], 04/28/2020 15:10:06 04/27/19 21 04/28/2020 LAVONNE (anti nucle ar antib odies ) panel , serum pharmaceutical botanist antibodies INVALD ai Repea tedly unabl e to obtai n valid resul ts. This may be due to inter - feren ce from immun e compl exing or other immun oglob ulin inter actio ns. Sugge st repea t on a fresh speci men in 2 to 4 weeks . Not Available [facility] (Lab) [address] [place], [address], 04/28/2020 15:10:06 04/27/19 21 04/28/2020 LAVONNE (anti [...] 2 to 4 weeks . Not Available [facility] (Lab) [address] [place], [address], 04/28/2020 15:10:06 04/27/19 21 04/28/2020 LAVONNE (anti [...] 2 to 4 weeks . Not Available [facility] (Lab) [address] [place], [address], 04/28/2020 15:10:06 04/27/19 21 04/28/2020 LAVONNE (anti [...] 2 to 4 weeks . Not Available [facility] (Lab) [address] [place], [address], 04/28/2020 15:10:06 04/27/19 21 04/28/2020 LAVONNE (anti [...] 2 to 4 weeks . Not Available [facility] (Lab) [address] [place], [address], 04/28/2020 15:10:06 04/27/19 21 04/28/2020 LAVONNE (anti [...] 2 to 4 weeks . Not Available [facility] (Lab) [address] [place], [address], 04/28/2020 15:10:06 04/27/19 21 04/28/2020 LAVONNE (anti [...] 2 to 4 weeks . Not Available [facility] (Lab) [address] [place], [address], 04/28/2020 15:10:06 04/27/19 21 04/28/2020 LAVONNE (anti [...] 2 to 4 weeks . Not Available [facility] (Lab) [address] [place], [address], 04/28/2020 15:10:06 04/27/19 21 04/28/2020 LAVONNE (anti [...] ----- ----- ----- ----- --- ----- ---- FINISHING TECHNICIAN Mixed Conne ctive Tissu e Disea se 95% (U1 nRNP, SLE 30 - 50% anti- ribon ucleo prote in) Polym yosit is and/o r [place] tomyo sitis 20% ----- ----- ----- ----- - ----- ----- ----- ----- ---- ----- ---- Scl-7 0 (anti DNA Scler oderm a (diff use) 20 - 35% topoi chandni ase) Crest 13% ----- ----- ----- ----- - ----- ----- ----- ----- ---- ----- ---- Refugio-1 Polym yosit is and/o r [place] tomyo sitis 20 - 40% ----- ----- ----- ----- - ----- ----- ----- ----- ---- ----- ---- Centr omere B Scler oderm a - Crest varia nt 80% Not Available [facility] ([facility]) [address] [facility], [place], [address], 04/28/2020 15:10:06 04/27/19 21 04/28/2020 actin mechelle [...] ry bilia ry cirrh osis. Not Available [facility] ([facility]) [address] [facility], [place], [address], 04/28/2020 16:11:59 04/27/19 21 04/28/2020 alpha 1 antit rypsi n pheno typin g, serum or plasm a ounse-2-zwmt trypsin, serum 83 mg/dL 100-18 8 low Not Available [facility] (Lab) [address] [facility], [place], [address], 04/28/2020 16:12:00 04/27/19 21 04/28/2020 mitoc hondr ial Ab, serum mitochondria l (M2) antibody <20.0 units 0.0-20 .0 Negat bria 0.0 - 20.0 Equiv ocal 20.1 - 24.9 Posit bria >24.9 . Mitoc hondr ial (M2) Antib odies are found in 90-96 % of patie nts with prima ry bilia ry cirrh osis. Not Available [facility] (Lab) [address] [facility], [place], [address], 04/28/2020 16:12:04 04/27/19 21 04/28/2020 gamma -glut amyl trans feras e (ggt) , serum GGT 56 IU/L 0-60 Not Available [facility] (Lab) [address] [place], [address], 04/28/2020 16:12:05 04/27/19 21 04/28/2020 liver -kidn [...] chron ic HCV infec tion. Not Available [facility] (Lab) [address] [place], [address], 04/28/2020 16:12:06 04/27/19 21 04/28/2020 cerul oplas min, serum ceruloplasmi n 26.7 mg/dL 19.0-3 9.0 Not Available [facility] (Lab) [address] [place], [address], 04/28/2020 16:12:09 05/18/19 21 05/22/2020 LAVONNE (anti [...] - 9 Posit bria >9 Not Available [facility] (Lab) [address] [place], [address], 05/22/2020 17:08:46 18 21 05/22/2020 LAVONNE (anti nucle ar antib odies ) panel , serum pharmaceutical botanist antibodies INVALD ai Repea tedly unabl e to obtai n valid resul ts. This may be due to inter - feren ce from immun e compl exing or other immun oglob ulin inter actio ns. Sugge st repea t on a fresh speci men in 2 to 4 weeks . Not Available [facility] (Lab) [address] [place], [address], 05/22/2020 17:08:46 05/18/19 21 05/22/2020 LAVONNE (anti [...] 2 to 4 weeks . Not Available [facility] (Lab) [address] [place], [address], 05/22/2020 17:08:46 05/18/19 21 05/22/2020 LAVONNE (anti [...] 2 to 4 weeks . Not Available [facility] (Lab) [address] [place], [address], 05/22/2020 17:08:46 05/18/19 21 05/22/2020 LAVONNE (anti [...] 2 to 4 weeks . Not Available [facility] (Lab) [address] [place], [address], 05/22/2020 17:08:46 05/18/19 21 05/22/2020 LAVONNE (anti [...] 2 to 4 weeks . Not Available [facility] (Lab) [address] [facility], [place], [address], 05/22/2020 17:08:46 05/18/19 21 05/22/2020 LAVONNE (anti [...] 2 to 4 weeks . Not Available [facility] (Lab) [address] [place], [address], 05/22/2020 17:08:46 05/18/19 21 05/22/2020 LAVONNE (anti [...] 2 to 4 weeks . Not Available [facility] (Lab) [address] [place], [address], 05/22/2020 17:08:46 05/18/19 21 05/22/2020 ALVONNE (anti nucle ar antib odies ) panel [...] 2 to 4 weeks . Not Available [facility] (Lab) [address] [place], [address], 05/22/2020 17:08:46 05/18/1905/22/2020 LAVONNE (anti nucle ar [...] ----- ----- ----- ----- --- ----- ---- FINISHING TECHNICIAN Mixed Conne ctive Tissu e Disea se 95% (U1 nRNP, SLE 30 - 50% anti- ribon ucleo prote in) Polym yosit is and/o r [place] tomyo sitis 20% ----- ----- ----- ----- - ----- ----- ----- ----- ---- ----- ---- Scl-7 0 (anti DNA Scler oderm a (diff use) 20 - 35% topoi chandni ase) Crest 13% ----- ----- ----- ----- - ----- ----- ----- ----- ---- ----- ---- Refugio-1 Polym yosit is and/o r [place] tomyo sitis 20 - 40% ----- ----- ----- ----- - ----- ----- ----- ----- ---- ----- ---- Centr omere B Scler oderm a - Crest varia nt 80% Not Available [facility] (Lab) [address] [place], [address], 05/22/2020 17:08:46 05/18/19 21 05/23/2020 alpha -1-an titry psin (aat) pheno type, serum joiyk-5-ceqr trypsin, serum 83 mg/dL 100-18 8 low Perfo rmed at: CB Not Available [facility] (Lab) [address] [place], [address], 05/23/2020 16:11:45 05/18/19 21 05/23/2020 alpha -1-an [...] type. Perfo rmed at: BN Not Available [facility] (Lab) [address] [place], [address], 05/23/2020 16:11:45 12/13/19 22 12/13/2021 CBC WITH DIFFE RENTI AL/PL ATELE T WBC 9.8 x10e3 /uL 3.4-10 .8 Not Available [facility] ([facility]) [address] [facility], [place], [address], 12/13/2021 08:20:22 12/13/19 22 12/13/2021 CBC WITH DIFFE RENTI AL/PL ATELE T RBC 4.25 x10e6 /uL 3.77-5 .28 Not Available [facility] ([facility]) [address] [place], [address], 12/13/2021 08:20:22 12/13/19 22 12/13/2021 CBC WITH DIFFE RENTI AL/PL ATELE T hemoglobin 13.0 g/dL 11.1-1 5.9 Not Available [facility] ([facility]) [address] [facility], [place], [address], 12/13/2021 08:20:22 12/13/19 22 12/13/2021 CBC WITH DIFFE RENTI AL/PL ATELE T hematocrit 37.7 % 34.0-4 6.6 Not Available [facility] ([facility]) [address] [place], [address], 12/13/2021 08:20:22 12/13/19 22 12/13/2021 CBC WITH DIFFE RENTI AL/PL ATELE T MCV 89 fL 79-97 Not Available [facility] ([facility]) [address] [place], [address], 12/13/2021 08:20:22 12/13/19 22 12/13/2021 CBC WITH DIFFE RENTI AL/PL ATELE T MCH 30.6 pg 26.6-3 3.0 Not Available [facility] ([facility]) [address] [place], [address], 12/13/2021 08:20:22 12/13/19 22 12/13/2021 CBC WITH DIFFE RENTI AL/PL ATELE T MCHC 34.5 g/dL 31.5-3 5.7 Not Available [facility] ([facility]) [address] [facility], [place], [address], 12/13/2021 08:20:22 12/13/19 22 12/13/2021 CBC WITH DIFFE RENTI AL/PL ATELE T RDW 12.8 % 11.7-1 5.4 Not Available [facility] ([facility]) [address] [facility], [place], [address], 12/13/2021 08:20:22 12/13/19 22 12/13/2021 CBC WITH DIFFE RENTI AL/PL ATELE T platelets 329 x10e3 /uL 150-45 0 Not Available [facility] ([facility]) [address] [facility], [place], [address], 12/13/2021 08:20:22 12/13/19 22 12/13/2021 CBC WITH DIFFE RENTI AL/PL ATELE T neutrophils 63 % not estab. Not Available [facility] ([facility]) [address] [facility], [place], [address], 12/13/2021 08:20:22 12/13/19 22 12/13/2021 CBC WITH DIFFE RENTI AL/PL ATELE T lymphs 28 % not estab. Not Available [facility] ([facility]) [address] [facility], [place], [address], 12/13/2021 08:20:22 12/13/19 22 12/13/2021 CBC WITH DIFFE RENTI AL/PL ATELE T monocytes 6 % not estab. Not Available [facility] ([facility]) [address] [place], [address], 12/13/2021 08:20:22 12/13/19 22 12/13/2021 CBC WITH DIFFE RENTI AL/PL ATELE T eos 2 % not estab. Not Available [facility] ([facility]) [address] [place], [address], 12/13/2021 08:20:22 12/13/19 22 12/13/2021 CBC WITH DIFFE RENTI AL/PL ATELE T basos 1 % not estab. Not Available [facility] ([facility]) [address] [facility], [place], [address], 12/13/2021 08:20:22 12/13/19 22 12/13/2021 CBC WITH DIFFE RENTI AL/PL ATELE T immature cells HEALTHCARE ECONOMICS MANAGER Not Available [facility] ([facility]) [address] [place], [address], 12/13/2021 08:20:22 12/13/19 22 12/13/2021 CBC WITH DIFFE RENTI AL/PL ATELE T neutrophils (absolute) 6.2 x10e3 /uL 1.4-7. 0 Not Available [facility] ([facility]) [address] [place], [address], 12/13/2021 08:20:22 12/13/19 22 12/13/2021 CBC WITH DIFFE RENTI AL/PL ATELE T lymphs (absolute) 2.8 x10e3 /uL 0.7-3. 1 Not Available [facility] ([facility]) [address] [place], [address], 12/13/2021 08:20:22 12/13/19 22 12/13/2021 CBC WITH DIFFE RENTI AL/PL ATELE T monocytes(ab solute) 0.6 x10e3 /uL 0.1-0. 9 Not Available [facility] ([facility]) [address] [place], [address], 12/13/2021 08:20:22 12/13/19 22 12/13/2021 CBC WITH DIFFE RENTI AL/PL ATELE T eos (absolute) 0.2 x10e3 /uL 0.0-0. 4 Not Available [facility] ([facility]) [address] [facility], [place], [address], 12/13/2021 08:20:22 12/13/19 22 12/13/2021 CBC WITH DIFFE RENTI AL/PL ATELE T baso (absolute) 0.1 x10e3 /uL 0.0-0. 2 Not Available [facility] ([facility]) [address] [facility], [place], [address], 12/13/2021 08:20:22 12/13/19 22 12/13/2021 CBC WITH DIFFE RENTI AL/PL ATELE T immature granulocytes 0 % not estab. Not Available [facility] ([facility]) [address] [facility], [place], [address], 12/13/2021 08:20:22 12/13/19 22 12/13/2021 CBC WITH DIFFE RENTI AL/PL ATELE T immature grans (abs) 0.0 x10e3 /uL 0.0-0. 1 Not Available [facility] ([facility]) [address] [facility], [place], [address], 12/13/2021 08:20:22 12/13/19 22 12/13/2021 CBC WITH DIFFE RENTI AL/PL ATELE T NRBC HEALTHCARE ECONOMICS MANAGER Not Available [facility] ([facility]) [address] [facility], [place], [address], 12/13/2021 08:20:22 12/13/19 22 12/13/2021 CBC WITH DIFFE RENTI AL/PL ATELE T hematology comments: HEALTHCARE ECONOMICS MANAGER Not Available [facility] ([facility]) [address] [place], [address], 12/13/2021 08:20:22 12/13/19 22 12/13/2021 COMP. METAB OLIC PANEL (14) glucose 81 mg/dL 65-99 Not Available [facility] ([facility]) [address] [facility] [place], [address], 12/13/2021 08:20:22 12/13/19 22 12/13/2021 COMP. METAB OLIC PANEL (14) BUN 9 mg/dL 6-20 Not Available [facility] ([facility]) [address] [place], [address], 12/13/2021 08:20:22 12/13/19 22 12/13/2021 COMP. METAB OLIC PANEL (14) creatinine 0.79 mg/dL 0.57-1 .00 Not Available [facility] ([facility]) [address] [facility] [place], [address], 12/13/2021 08:20:22 12/13/19 22 12/13/2021 COMP. METAB OLIC PANEL (14) eGFR 100 mL/mi n/1.7 3 >59 Not Available [facility] [facility]) [address] [facility] [place], [address], 12/13/2021 08:20:22 12/13/19 22 12/13/2021 COMP. METAB OLIC PANEL (14) BUN/creatini ne ratio 11 9-23 Not Available [facility] ([facility]) [address] [place], [address], 12/13/2021 08:20:22 12/13/19 22 12/13/2021 COMP. METAB OLIC PANEL (14) sodium 140 mmol/ L 134-14 4 Not Available [facility] ([facility]) [address] [place], [address], 12/13/2021 08:20:22 12/13/19 22 12/13/2021 COMP. METAB OLIC PANEL (14) potassium 4.3 mmol/ L 3.5-5. 2 Not Available [facility] ([facility]) [address] [place], [address], 12/13/2021 08:20:22 12/13/19 22 12/13/2021 COMP. METAB OLIC PANEL (14) chloride 104 mmol/ L 96-106 Not Available [facility] ([facility]) [address] [place], [address], 12/13/2021 08:20:22 12/13/19 22 12/13/2021 COMP. METAB OLIC PANEL (14) carbon dioxide, total 23 mmol/ L 20-29 Not Available [facility] ([facility]) [address] [place], [address], 12/13/2021 08:20:22 12/13/19 22 12/13/2021 COMP. METAB OLIC PANEL (14) calcium 9.5 mg/dL 8.7-10 .2 Not Available [facility] ([facility]) [address] [place], [address], 12/13/2021 08:20:22 12/13/19 22 12/13/2021 COMP. METAB OLIC PANEL (14) protein, total 7.9 g/dL 6.0-8. 5 Not Available [facility] ([facility]) [address] [place], [address], 12/13/2021 08:20:22 12/13/19 22 12/13/2021 COMP. METAB OLIC PANEL (14) albumin 4.8 g/dL 3.8-4. 8 Not Available [facility] ([facility]) [address] [place], [address], 12/13/2021 08:20:22 12/13/19 22 12/13/2021 COMP. METAB OLIC PANEL (14) globulin, total 3.1 g/dL 1.5-4. 5 Not Available [facility] ([facility]) [address] [place], [address], 12/13/2021 08:20:22 12/13/19 22 12/13/2021 COMP. METAB OLIC PANEL (14) A/G ratio 1.5 1.2-2. 2 Not Available [facility] ([facility]) [address] [facility] [place], [address], 12/13/2021 08:20:22 12/13/19 22 12/13/2021 COMP. METAB OLIC PANEL (14) bilirubin, total 0.3 mg/dL 0.0-1. 2 Not Available [facility] ([facility]) [address] [facility] [place], [address], 12/13/2021 08:20:22 12/13/19 22 12/13/2021 COMP. METAB OLIC PANEL (14) alkaline phosphatase 90 IU/L 44-121 Not Available [facility] ([facility]) [address] [facility] [place], [address], 12/13/2021 08:20:22 12/13/19 22 12/13/2021 COMP. METAB OLIC PANEL (14) AST (SGOT) 43 IU/L 0-40 above high normal Not Available [facility] ([facility]) [address] [facility] [place], [address], 12/13/2021 08:20:22 12/13/19 22 12/13/2021 COMP. METAB OLIC PANEL (14) ALT (SGPT) 46 IU/L 0-32 above high normal Not Available [facility] ([facility]) [address] [facility] [place], [address], 12/13/2021 08:20:22 12/13/19 22 12/13/2021 LIPID PANEL cholesterol, total 182 mg/dL 100-19 9 Not Available [facility] ([facility]) [address] [facility] [place], [address], 12/13/2021 08:20:23 12/13/19 22 12/13/2021 LIPID PANEL triglyceride s 151 mg/dL 0-149 above high normal Not Available [facility] ([facility]) [address] [place], [address], 12/13/2021 08:20:23 12/13/19 22 12/13/2021 LIPID PANEL HDL cholesterol 42 mg/dL >39 Not Available [facility] ([facility]) [address] [place], [address], 12/13/2021 08:20:23 12/13/19 22 12/13/2021 LIPID PANEL VLDL cholesterol rachael 27 mg/dL 5-40 Not Available [facility] ([facility]) [address] [place], [address], 12/13/2021 08:20:23 12/13/19 22 12/13/2021 LIPID PANEL LDL chol calc ([facility]) 113 mg/dL 0-99 above high normal Not Available [facility] (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) [address] [facility], [place], [address], 12/13/2021 08:20:23 12/13/19 22 12/13/2021 TSH RFX ON ABNOR MAL TO FREE T4 TSH 1.510 uIU/m L 0.450- 4.500 Not Available [facility] ([facility]) [address] [place], [address], 12/13/2021 08:20:24 01/30/20 23 01/29/2023 pregn shaun test, urine HCG positi ve Not Available In-Office Order Internal Use Only DO Not Attach Compendium DO Not Attach Compendium, Do Not Delete/merge, [id number] 01/29/2023 12:37:40 04/27/19 21 04/27/2020 US, liver EXAMIN ATION: LIMITE D ULTRAS OUND OF THE LIVER ACCESS ION: [id number] EXAM DATE: 7:02 AM REASON FOR EXAM: [id number] 006: Elevat ed liver enzyme s level [...] CINDY BALDERRAMA MD Date: 2020 07:50 [email or web address] [employer] [facility] [address], [place], [address], 05/02/2020 17:30:47 05/18/1905/18/2020 XR, chest , 2 [...] BY: CALISTA KULKARNI Date: 2020 15:16 [email or web address] [facility] ([facility]) [address], [place], [address], 05/22/2020 11:01:58 06/07/1905/17/2020 US, elast ogram No observ ation record ed. BARCODE [facility] ([facility]) [address], [place], [address], 06/06/2020 09:28:59 10/19/19 22 10/09/2021 XR, hand [...] Details Recorded Time Steatoti c liver disease 678372391 Active 2017 Gonzalo Powell MA null, [place] - [facility] 2 12:12:27 Umbilica l hernia 811044537 Active 2017 JANE Munoz-THERESA Attn: Katharina deandre,[address], [place], [address], [facility] 2 12:25:44 [facility] francisco [id number] Completed 201710/04/2019 Lia Ray RN null, [place] - [facility] 0 16:13:48 Mixed hyperlip idemia 819055200 Active 2019 Gonzalo Powell [place] null, [place] - [facility] 2 12:12:27 COVID-19 906237676 [facility] Attn: Katharina carrera,[address] [facility], [place], [address], [place] - [facility] 2 12:25:44 Body mass index 40+ - severely obese 149823477 Active 2020 [facility] Attn: Katharina carrera,[address] [facility], [place], [address], [place] - [facility] 2 12:25:44 Alpha-1- antitryp sin deficien cy 25385802 Active 2020 seeing pulmonolo gist Gonzalo Powell MA null, [place] - [facility] 2 12:12:36 Obstruct bria sleep apnea syndrome 66668257 Active 2020 seeing pulmonolo gist Gonzalo Powell MA null, [place] - [facility] 2 12:12:27 Pulmonar y hyperten breanna 57926325 Active 2020 getting echo per pulmonolo gist [facility] Attn: Katharina carrera,[address] [facility], [place], [address], [place] - [facility] 2 12:25:44 Non-alco holic fatty liver 519902788 Active 2020 Gonzalo Powell MA null, [place] - [facility] 2 12:12:27 Abnormal liver function 56538634 Active 2021 [facility] Attn: Katharina carrera,[address] [facility], [place], [address], [place] - [facility] 2 12:31:26 Noncompl iance with treatmen t 6076265 Active 2021 Horacio Tuttle [facility] Attn: Katharina carrera,[address] [facility], [place], [address], [place] - [facility] 2 12:34:02 Otitis media 77412854 Completed 04/28/2015 Marika Betancour t null[place] - [facility] 6 11:15:42 Tonsilli tis 35530545 Completed 04/28/2015 Marika Betancour t [place] [facility] 6 11:15:42 Postpart um state 97115836 Completed 07/29/2016 Lia Ray RN [place] [facility] 7 10:55:34 Vaginal lesion 615360826 Completed 07/29/2016 Lia Ray [place] [facility] 7 10:55:03 RhD negative 236425130 Completed 06/24/2018 Lia Ray RN [place] [facility] 9 10:45:35 Hyperten sive disorder 66518342 Active Gonzalo Powell [place] null, [place] - [facility] 2 12:12:27 Hyperlip idemia 05976475 Completed 08/03/2019 JANE Munoz-BC Attn: Sonin g,[address] [facility], [place], [address], [place] - [facility] 0 15:39:52 Obesity 991021001 Active Gonzalo Powell [place] - [facility] 2 12:12:27 Dizzines s 971570099 Completed 07/29/2016 Lia Ray [place] [facility] 7 10:55:11 Chronic allergic otitis media 42399803 Completed 07/29/2016 Lia Ray [place] [facility] 7 10:55:27 Headache 70353074 Completed 07/29/2016 Lia Ray [place] [facility] 7 10:54:54 Chronic gastriti s 2536240 Active Gonzalo Powell [place] null, [place] - [facility] 2 12:12:27 Pain in left arm 836534043 Completed 07/29/2016 Lia Ray RN [place] [facility] 7 10:54:58 Neuropat hy 486678475 Completed 10/04/2019 Lia Ray RN null, [place] - [facility] 0 16:13:53 Acute left otitis media 193515331 Completed 07/29/2016 Lia Ray [place] [facility] 7 10:54:48 Acute sinusiti s 12379614 Completed 07/29/2016 Lia [place] [facility] 7 10:54:41 Upper respirat ory infectio n 23168850 Completed 11/17/2014 Marika Betancour t [place] [facility] 6 11:15:42 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 Procedures Surgical History Date Name Laterality Status Provider Name and Address Organization Details Recorded Time 0 cervical laminectomy completed YANNICK CORADO NP [address] [place], [address], [facility] - [facility] 04/27/2020 16:26:53 8 Date of Last Pap Smear completed Lia Ray RN [place] - [facility] 10/04/2019 16:15:11 7 I&D completed MARINO Munoz Attn: Accounting,[address] [facility], [place], [address], [place] - [facility] 02/14/2017 15:06:38 7 Control Implant Removal completed MARINO Munoz Attn: Accounting,[address] [facility], [place], [address], [place] - [facility] 10/24/2016 16:17:10 5 Control Implant Insertion completed MARINO Munoz Attn: Accounting,[address] [facility], [place], [address], [place] - [facility] 10/14/2014 13:14:06 7 Caesarean Section completed JACEY Razo [place] - [facility] 03/09/2014 12:19:50 7 delivery completed Rosana Newton [place] - [facility] 08/26/2018 15:29:08 Imaging Results None [...] 04/15 completed Called into [facility] spoke with Chrsi. Not Available Not Available Not Available [email or web address] [...] e 50 mcg/actua tion nasal spray,[facility] [place] 1 spray every day by intranas al [...] /min 16 /min 98.4 [degF] 43.8 kg/m2 74218.8 3 g 136 mm[Hg] 96 mm[Hg] Leia Knight LPN [facility] 1 14:58:38 Date Recorded Body height Body mass index (BMI) Body weight Body temperature Heart rate Respiratory rate Systolic blood pressure Diastolic blood pressure Provider Name and Address Organization Details Last Updated DateTime 1 149.86 cm 43.8 kg/m2 24861.8 3 g 98.4 [degF] 83 /min 16 /min 134 mm[Hg] 96 mm[Hg] Sadia Ibarra LPN [facility] 1 14:22:31 Date Recorded Body height Provider Name an d Address Organization Details Last Updated DateTime 05/22/2020 149.86 cm Lia Ray RN [facility] 2020 14:58:58 Date Recorded Body height Body mass index (BMI) Body weight Heart rate Systolic blood pressure Diastolic blood pressure Provider Name and Address Organization Details Last Updated DateTime 1 149.86 cm 43.6 kg/m2 27122.3 1 g 96 /min 145 mm[Hg] 87 mm[Hg] Johanne Alan [facility] 1 15:43:11 Date Recorded Respiratory rate Body height Body temperature Body mass index (BMI) Body weight Heart rate Systolic blood pressure Diastolic blood pressure Provider Name and Address Organization Details Last Updated DateTime 2 18 /min 152.4 cm 97.1 [degF] 38.4 kg/m2 35152.9 8 g 65 /min 145 mm[Hg] 95 mm[Hg] Ioana Ramsey [facility] 2 15:21:23 Date Recorded Systolic blood pressure Diastolic blood pressure Provider Name and Address Organization Details Last Updated DateTime 12/12/2021 130 mm[Hg] 92 mm[Hg] MARINO Munoz Attn: Accounting,[address] [facility], [place], [address], [facility] 12/12/2021 12:40:32 Date Recorded Body height Body mass index (BMI) Body weight Body temperature Systolic blood pressure Diastolic blood pressure Provider Name and Address Organization Details Last Updated DateTime 2 152.4 cm 38.9 kg/m2 65363.2 8 g 97.9 [degF] 126 mm[Hg] 82 mm[Hg] Gonzalo Powell MA [facility] 2 12:22:28 Date Recorded Body temperature Body weight Body mass index (BMI) Body height Oxygen saturation Oxygen saturation in Arterial blood by Pulse oximetry Heart rate Systolic blood pressure Diastolic blood pressure Provider Name and Address Organization Details Last Updated DateTime 3 98 [degF] 63871.6 6 g 34.8 kg/m2 151.13 cm 99 % 99 % 86 /min 108 mm[Hg] 70 mm[Hg] Marika sprague MA [facility] 3 12:45:32 Social History Question Answer Notes LastModified by Organizat ion Details LastModified Time Tobacco Smoking Status Never Smoker JACEY Razo, [facility] 03/09/2014 12:39:21 Do You Have An Advance [...] Or Recreational Drugs Have You Used? None [email or web address] Information not available 07/14/2017 Education 12 Information no t available 11/17/2014 Are There Any Guns Present In Your Home? No Information not available 11/17/2014 Hard Of Hearing Or Deaf In One Or Both Ears? No Information not available 11/17/2014 Legally Blind In One Or Both Eyes? No Information not available 11/17/2014 Marital Status Informatio n not available 07/14/2017 Do You Have A Medical Power Of Global Upstream Marketing Manager? No [email or web address] Information not available 10/18/2021 What [...] Tobacco Do You Smoke? 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 Information not available 08/26/2018 Do you or [...] Polyps N Diabetes N Anxiety Disorder N Seizures/Epilepsy N Arthritis N Tuberculosis N Acid Reflux (GERD) N Cancer N Stroke N Allergies N Asthma N High Cholesterol Y GERD/Reflux N Hepatitis N Liver Disease N Heart Disease [...] trivalent, preservative 4 completed JACEY Razo null, [place] - [facility] 03/09/2014 12:16:48 Tdap 5 completed MARINO Munoz Attn: Accounting,[address] [place], [address], [facility] 10/12/2014 13:39:14 Influenza, split virus, quadrivalent, preservative 8 completed Not Available [facility] 04/17/2019 02:47:53 Influenza, split virus, quadrivalent, PF 2 completed MARINO Munoz Attn: Accounting,[address] [place], [address], [facility] 12/12/2021 15:04:59 Influenza, split virus, trivalent, preservative 5 completed Not Available [facility] 04/17/2019 02:32:12 Past Encounters Encounter ID Performer Location Encounter Start Date Encounter Closed Date Diagnosis/Indication Diagnosis SNOMED-CT Code Diagnosis ICD10 Code Diagnosis Note [id number] Carlos Tafoya MD [facility] [address] [address] 03/09/2014 10:42:42 03/14/2014 18:14:43 state of fetus, 2nd trimester 19814183 [id number] Carlos Tafoya MD [facility] [address] [address] 04/13/2014 11:55:46 04/15/2014 16:20:18 state of fetus, 2nd trimester 76941322 Upper resp iratory infection 76031391 Rhesus isoimmunization affecting 74252042 Normal 37325390 [id number] Carlos Tafoya MD [facility] [address] [address] 10/12/2014 13:21:20 10/12/2014 15:27:21 Contraception education 802057049 will order Nexplanon for patient patient to return for insertion patient needs PP check in around 3 weeks no sexual activity until PPcheck [id number] Carlos Tafoya MD [facility] [address] [place] [address] 10/14/2014 12:37:45 10/14/2014 13:41:59 Implantation of subcutaneous contraceptive 852119667 Patient had healthy male 09/07/2014 wishes to have Neplanon insertion no contraindi cation Patient is breastfeed ing; had normal delivery without complicati ons at [facility] Patient is not to have sexual activity until after PP check History of hypertension 451519573 will monitor blood pressure Patient advised if headaches, chest pain, sob to seek reevaluati on immediatel y [id number] Horacio Tuttle [facility] [address] [address] 10/24/2014 13:54:27 10/27/2014 20:19:45 Family planning surveillance 232971561 left upper arm with small bruises palpated implant Otitis media 48008032 Tonsillitis 73518922 History of hypertension 574906897 will monitor blood pressure right arm 130/90 Patient advised if headaches, chest pain, sob to seek reevaluati on immediatel y [id number] Horacio Tuttle [facility] [address] [address] 11/17/2014 16:37:36 11/18/2014 16:49:19 state 73805579 Vaginal lesion 416730370 RhD negative 739732087 P atient had a negative work up at [facility] after delivery [id number] Horacio Tuttle [facility] [address] [address] 12/21/2014 10:39:48 12/29/2014 12:40:28 Hypertensive disorder 78269255 stressed monitor diet and exercise daily Obesity 590376531 diet weight loss [facility] 567045735 [id number] [facility] [address] [place] [address] 4 12/23/2014 12:53:38 12/29/2014 13:31:45 Obesity 540517262 diet weight loss [id number] [facility] [address] [address] 4 04/28/2015 16:10:16 04/28/2015 17:43:31 Hypertensive disorder 17120996 I10 stressed monitor diet and exercise daily Obesity 308631129 E66.9 diet weight loss Chronic al lergic otitis media 29963110 H65.413 Headache 04061568 R51 Chronic gastritis 147639 9 K29.50 Pain in left arm 6353975 00 M79.602 Neuropathy 058870175 G62 .9 [id number] [facility] [address] [place] [address] 4 06/09/2015 10:28:58 06/14/2015 17:21:55 Acute left otitis media 294289885 H66.92 Acute sinusitis 03740199 J01.90 [id number] Carlos Tafoya MD [facility] [address] [place] [address] 4 10/25/2015 15:53:29 10/29/2015 18:46:41 Hypertensive disorder 29834436 I10 stressed monitor diet and exercise daily B/P 120/88 left arm Hyperlipidemia 05249210 E78.5 Obesity 660901903 E66.9 diet weight loss [id number] Horacio Tuttle [facility] [address] [place] [address] 4 07/29/2016 10:39:18 07/31/2016 14:15:51 Family planning surveillance 729784380 Z30.[address] left arm Patient will schedule for removal if she wishes to proceed with removal of implant Contracept bria methods discussed/ handouts Morbid obesity 712633179 E66.01 [id number] Horacio Tuttle [place] [address] [address] 08/23/2016 12:25:05 08/23/2016 16:48:14 Posterior auricular lymphadenopathy 524517800 R59.0 Cyst of vagina 15462475 N89.8 [id number] Carlos Tafoya MD [facility] [address] [address] 10/09/2016 11:52:43 10/24/2016 14:10:13 Irregular intermenstrual bleeding 01978990 N92.1 Nexplanon side effects Cyst of vagina 60790997 N89.8 Herpes culture negative Avoid squeezing/ handling [id number] Carlos Tafoya MD [facility] [address] [place] [address] 10/24/2016 15:43:24 10/24/2016 17:50:32 Contraception care management 706083373 Z30.09 Discussed contracept arianna risks and benefits Handout on contracept bria methods Condoms as necessary Removal of subcutaneous contraceptive done 5535493108 80467 Z98.890 removed Nexplanon without difficulti es [id number] Christiano Cline MD [place] [address] [place] [address] 02/13/2017 11:07:28 02/18/2017 15:22:29 Cyst of vagina 77464908 N89.8 Initial pr escription of oral contraception 429613562 Z30.614 [id number] LUI BARTLETT NP-Thu [facility] [address] [place] [address] 07/14/2017 14:11:38 07/17/2017 17:46:24 Tension-type headache 941082628 G44.209 hcg negative, done due to lmp more than one month agodiscuss ed daily prevention medication s vs PRN medspt wants to try PRN treatment for headachess tart naproxen BID PRN headachesa sked to keep headache journal and bring to next visit to evaluate how often headaches occurf/u in 2 mos on headaches/ naproxen Elevated blood-pressure reading without diagnosis of hypertension 615626324 R03.0 BP 134/106has gestationa l htn hxcheck labs-not fasting todaystart dash diet and exercisech nisha bp outside officef/u in 2 mos on bp Family his tory of diabetes mellitus 861625672 Z83.3 pt wants to be checked for DMhas family hxcheck HBA1Cf/u on labs [id number] Christiano Cline MD [facility] [address] 4 08/20/2017 14:07:49 08/20/2017 18:15:45 Gynecologic examination 91162723 Z01.411 no pay source--noel d normal pap 2013 calcium rich food handout vitamin D daily SBE exercise diet low fat low cho low carb Increased blood pressure 89244626 R03.0 reduce salt in your diet 50-60 minutes of aerobic physical activity 5-6 time per week lose weight 5-20% of current body weight if B/P remains elevated will start B/P meds Obesity 592397240 E66.9 diet weight loss Morbid obesity 669320044 E66.01 [id number] Carlos Tafoya MD [facility] [address] 4 09/11/2017 15:02:38 09/22/2017 17:16:32 Hypertensive disorder 45417089 I10 stressed monitor diet, weight loss and exercise daily B/P 130/88 left arm Obesity 679842991 E66.9 diet weight loss Hyperlipidemia 37200642 E78.5 trig [id number] Carlos Tafoya MD [facility] [address] [place] [address] 4 01/13/2018 16:09:12 01/22/2018 17:30:26 Hypertensive disorder 00771014 I10 stressed monitor diet, weight loss and exercise daily B/P 130/88 left arm stress has refills at pharmacy x3 she is to [facility] and start taking it Amenorrhea 76243791 N91. 2 LMP 11/25/2017 Has H/O irregular menses No menses in 2 weeks repeat a test Administra tion of influenza vaccine 93299977 Z23 Abdominal wall pain 1620 87291 R10.9 Reviewed e/r record umbilical hernia, hepatic steatosis and cholelithi asis. Umbilical hernia 4390341 07 K42.9 will hold off for now on surgical consult as patient has no insurance [id number] MD Paulo Chaparro (Adult Med) [address] [place] [address] 04/10/2018 15:28:17 04/13/2018 10:32:58 Missed period 28598984 N92.5 Low back pain 343003772 M54.5 May take tylenol. discussed with them , she will try light duty for the time being. [id number] Carlos Tafoya MD [facility] [address] [place] [address] 04/15/2018 10:51:23 04/21/2018 11:43:59 Hypertensive disorder 07370222 I10 stressed monitor diet, weight loss and exercise daily B/P 130/88 left arm stress has refills at pharmacy x2 she is to [facility] and start taking it Umbilical hernia 0771253 07 K42.9 will hold off for now on surgical consult as patient has no insurance Morbid obesity 321684711 E66.01 gained 10 pounds since last visit Noncomplia nce with medication regimen 948067267 Z91.14 Chest pain 04588024 R07. 9 [id number] [facility] [address] [place] [address] 04/16/2018 10:08:05 04/17/2018 11:35:07 Neck pain 42390002 M54.2 Low back pain 232666034 M54.5 May take tylenol. discussed with them , she will try light duty for the time being. Discussed with patient and patient, will put on sick absence for another week. [id number] MD Paulo Chaparro (Adult Med) [address] [place] [address] 04/21/2018 10:11:52 04/30/2018 13:17:52 Thoracic back sprain 563455450 S23.3XXD Return to regular duty tomorrow as they agreed. Neck sprain 366925706 S1 3.9XXD Low back pain 595835002 M54.5 May take tylenol. discussed with them , she will try light duty for the time being. Discussed with patient and patient, will put on sick absence for another week. [id number] Carlos Tafoya MD [facility] [address] [address] 05/20/2018 11:24:47 05/21/2018 14:41:56 Acute sinusitis 31093647 J01.90 Hypertensive disorder 38 617159 I10 stressed monitor diet, weight loss and exercise daily B/P 130/88 left arm pt is not taking b/p meds--just restarted stress has refills at pharmacy x2 she is to [facility] and start taking it [id number] Carlos Tafoya MD [facility] [address] [address] 06/24/2018 10:41:39 06/25/2018 08:14:26 Acute gastroenteritis 38001089 K52.9 Indigestion 868074561 R1 0.13 Chronic gastritis 719997 9 K29.50 stop daily intake of Ibuprofen 600mg bid Hypertensive disorder 38 174984 I10 stressed monitor diet, weight loss and exercise daily B/P 130/88 left arm pt is not taking b/p meds--just restarted stress has refills at pharmacy x2 she is to [employer] and start taking it [id number] Carlos Tafoya MD [facility] [address] [place] [address] 09/28/2018 12:21:00 09/29/2018 08:35:14 test negative [id number] Z32.02 [id number] Carlos Tafoya MD [facility] [address] [place] [address] 4 08/03/2019 15:07:01 08/04/2019 12:25:36 Hypertensive disorder 11141834 I10 stressed monitor diet, weight loss and exercise daily B/P 130/88 left arm pt is not taking b/p meds-- stress she is to chicken picker RX and start taking it Hypertensi on is the silent killer Steatotic liver disease 405734168 K76.0 Body mass index 40+ - severely obese 978070551 Z68.41 BMI 41.995-125 Healthy weight range Mixed hyperlipidemia 267 721560 E78.2 Avoid all breads, potatoes, cereal, pasta, rice, margarine, refined sugars, milk yogurt, ice cream, juices, soda (including diet), beer, and manmade or manufactur ed desserts. Enjoy steak, fish, chicken (no skin), pork, butter, vegetables , beans, nuts, whole eggs, cheese (low fat or skim), cream in your coffee. Acanthosis nigricans 402 234405 L83 on neck Intermitte nt palpitations 505819171 R00.2 off and on for months Depression screening 171 603398 Z13.31 negative [id number] Carlos Tafoya MD [facility] [address] [place] [address] 10/04/2019 16:10:57 10/05/2019 06:51:25 Hypertensive disorder 34895560 I10 stressed monitor diet, weight loss and exercise daily pt is now taking b/p med-- stress she is to continue taking chlorthali done Hypertensi on is the silent killer Mixed hyperlipidemia 267 060285 E78.2 Avoid all breads, potatoes, cereal, pasta, rice, margarine, refined sugars, milk yogurt, ice cream, juices, soda (including diet), beer, and manmade or manufactur ed desserts. Enjoy steak, fish, chicken (no skin), pork, butter, vegetables , beans, nuts, whole eggs, cheese (low fat or skim), cream in your coffee.08/02cho 153Trig 165HDL 39LDL 81 Steatotic liver disease 530963054 K76.0 Stay at a healthy weight. Or [...] Body mass index 40+ - severely obese 686062733 Z68.41 BMI 41.995-125 Healthy weight range Acanthosis nigricans 402 435898 L83 on neck Intermitte nt palpitations 909920724 R00.2 off and on for monthsCXR and EKG order given at last visit-get done bryan Abnormal l iver function 19317866 K76.89 AST 85ALT 163no alcoholno Tylenol COVID-19 625470995 U07.1 09/27/2019 + covid19 [id number] Carlos Tafoya MD [facility] [address] [place] [address] 01/20/2020 15:33:09 01/21/2020 14:59:00 Hypertensive disorder 04240125 I10 stressed monitor diet, weight loss and exercise daily pt is now taking b/p med-- stress she is to continue taking chlorthali done Hypertensi on is the silent killer Mixed hyperlipidemia 267 396807 E78.2 Avoid all breads, potatoes, cereal, pasta, rice, margarine, refined sugars, milk yogurt, ice cream, juices, soda (including diet), beer, and manmade or manufactur ed desserts. Enjoy steak, fish, chicken (no skin), pork, butter, vegetables , beans, nuts, whole eggs, cheese (low fat or skim), cream in your coffee.08/02cho 153Trig 165HDL 39LDL 81 Steatotic liver disease 558888268 K76.0 Stay at a healthy weight. Or [...] Body mass index 40+ - severely obese 146614155 Z68.41 BMI 41.995-125 Healthy weight range Acanthosis nigricans 402 439232 L83 on neck Intermitte nt palpitations 629458885 R00.2 off and on for monthsCXR and EKG normal Abnormal l iver function 95902089 K76.89 AST 85ALT 163no alcoholno TylenolPat ient has fatty liver COVID-19 796021103 U07.1 09/27/2019 + covid19 Stomatitis 03310347 K12. 30 [id number] Petra Castillo MD [facility] [address] [place] [address] 02/21/2020 10:39:15 02/21/2020 13:59:35 Liver enzymes level above reference range 195575893 R74.01 [id number] YANNICK CORADO NP [facility] [address] [place] [address] 04/27/2020 15:50:44 04/27/2020 17:14:43 Steatotic liver disease 614791247 K76.0 Fatty liver disease, likely NAFLD Patient [...] Body mass index 40+ - severely obese 507874547 Z68.41 Encouraged weight loss -Choosing low-fat, low-calori e foods -Eating smaller portions -Drinking water instead of sugary drinks -Being physically active Chronic gastritis 364181 9 K29.50 Hypertensive disorder 38 031646 I10 Mixed hyperlipidemia 267 391441 E78.2 [id number] YANNICK CORADO NP [facility] [address] [place] [address] 2020 14:12:02 05/22/2020 08:29:18 Steatotic liver disease 273698412 K76.0 NAFLD may have an element of MEG[place]NA, Low alpha 1 antitrypsi n, seeing Pulmonary todayANA test invalid per lab, needs repeat ANAFibrosc an of 05/17/2020: F3, S3Next appointmen t with Dr. 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 Order AAT phenotype and PFT to assess lung function. Dyspnea on exertion 6084 5006 R06.09 CXR Obstructiv e sleep apnea syndrome 74670827 G47.33 Would benefit from Home sleep apnea testing; snoring, morning headaches, daytime sleepiness and body habitus- BMI 43.8 Steatotic liver disease 723366978 K76.0 Followed by GI Hypertensive disorder 38 096834 I10 Managed in primary care. Continue to monitor blood pressure. Encourage low salt diet and exercise. Body mass index 40+ - severely obese 900287630 Z68.41 Encouraged weight loss -Choosing low-fat, low-calori e foods -Eating smaller portions -Drinking water instead of sugary drinks -Being physically active Pulmonary hypertension 04825105 I27.20 Echo [id number] YANNICK CORADO NP [facility] [address] [place] [address] 05/30/2020 15:08:16 05/30/2020 16:57:14 Non-alcoholic fatty liver 259428589 K76.0 Continue weight loss effortsWil l be seen in 2 months with lab recheck at that time.Attem pt to exercise 150 minutes weekly - walking is fineContin ue to abstain from EtOH, Tobacco and recreation al drugs. Hypertensive disorder 38 453719 I10 BP slightly elevated todayNo medication s Managed in Primary Care Mixed hyperlipidemia 267 302564 E78.2 No medication sManaged in primary care Body mass index 40+ - severely obese 949930789 Z68.41 Encouraged weight loss -Choosing low-fat, low-calori e foods -Eating smaller portions -Drinking water instead of sugary drinks -Being physically active [id number] Aayush Woodward MD [facility] [address] [place] [address] 10/18/2021 15:07:47 10/30/2021 13:08:08 Closed fracture of head of right radius 4073240176 [id number] S52.121A [id number] Carlos Tafoya MD [facility] [address] [place] [address] 12/12/2021 12:08:53 12/13/2021 09:32:00 Hypertensive disorder 67950971 I10 stressed monitor diet, weight loss and [...] minutes Next Visit: 3month(s) Mixed hyperlipidemia 267 333886 E78.2 Avoid all breads, potatoes, cereal, pasta, rice, margarine, refined sugars, milk yogurt, ice cream, juices, soda (including diet), beer, and manmade or manufactur ed desserts. Enjoy steak, fish, chicken (no skin), pork, butter, vegetables , beans, nuts, whole eggs, cheese (low fat or skim), cream in your coffee.08/02cho 153Trig 165HDL 39LDL 81 Steatotic liver disease 656209942 K76.0 Stay at a healthy weight. Or [...] Body mass index 40+ - severely obese 740054098 Z68.41 BMI 41.995-125 Healthy weight range Acanthosis nigricans 402 573743 L83 on neck Abnormal l iver function 00862184 K76.89 04/27/2020 AST 62.5ALT 106no alcoholno TylenolPat [...] hepatotoxi city. Administra tion of influenza vaccine 03258082 Z23 Noncomplia nce with treatment 5729215 Z91.19 36 y/o HF presents to [facility] care for HTN, HPLD, Fatty liver and obesity after a 2 year hiatus. She was last consulted on 01/20/2020 and has been off hypertensi ve medication for about 2 years. SHe is not exercising . SHe is not having headaches and visual changes. since restarting meds. Has been under a lot of stress. [id number] Arash Delgadillo MD [facility] [address] [place] [address] 01/29/2023 12:27:03 01/30/2023 09:41:45 Urine test positive 165942365 Z32.01 LNMP 12/23/2022 pprox gest 5 weeks 2 [id number]/2023 Body mass index 30+ - obesity 342872551 Z68.34 BMI 34 Depression screening 171 517917 Z13.31 negative Mental hea lth screening 672742278 Z13.39 negative Health Concerns Section Related Observation [...] 1 MEDICAID - MOVED-[id number] D - PENDING [id number] Pastora Stauffer Notes Date Note Type Note [...] excessive belching or flatus. 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 Ms. Hall has PMH [...] , some daytime sleepiness/fatigue BHARATH LAO NP [address], [place], [address], [place] 2020 16:04:11 05/31/19 [...] deniesTobacco: deniesRecreational drugs: denies YANNICK CORADO NP [address], [place], [address], [facility] 05/30/2020 16:08:30 10/19/19 22 text/htm l This [...] has no numbness or tingling. She is korean speaking only and brought someone with her to help with interpreting. Aayush Woodward MD [address], [place], [address], [facility] 10/25/2021 14:28:03 12/13/19 22 text/htm [...] activity per week: sedentary; weekly screen time ([employer]) : 0 hours Medication Education:understands administration; understands [...] no contraindications. MARINO Munoz Attn: Accounting,[address] [place], [address], [facility] 12/12/2021 15:05:18 01/30/20 23 text/htm l 37 y/o [id number] for urine testLNMP 3approx gest 5 weeks 2 fqecQRG40/01/2024Patient wants to go to [facility] as she wants to try V delivery after . MARINO Munoz Attn: Accounting,[address] [place], [address], [facility] 01/29/2023 17:19:47 OBGyn Episode Ob Episode Information Episode Created Date Number of Fetuses Patient Bloodtype Patient rh Status Prepregnancy Weight lbs Domestic Partner Domestic Partner Phone Father Name Advertising Clerk Status 04/15/19 19 1 CLOSED Fetus Data First Name Last Name Admitted to NICU Weight (g) Sex Living Outcome Pediatric Complications Fetus ID Race Codes Race Delivery Type 3628.73 6 M Full Term 65078 Lj Calculation Initial Lj Date Initial Exam [...] Domestic Partner Domestic Partner Phone Father Name Advertising Clerk Status 04/15/19 19 1 CLOSED Fetus Data First Name Last Name Admitted to NICU Weight (g) Sex Living Outcome Pediatric Complications Fetus ID Race Codes Race Delivery Type 3401.94 M Full Term 49836 Lj Calculation Initial Lj Date Initial Exam [...] Domestic Partner Domestic Partner Phone Father Name Advertising Clerk Status 10/13/19 15 1 CLOSED Fetus Data First Name Last Name Admitted to NICU Weight (g) Sex Living Outcome Pediatric Complications Fetus ID Race Codes Race Delivery Type M Full Term 22157 Only Lj Calculation Initial Lj Date Initial [...]
[2024-09-07 12:22] LABS: Basophils Percent Auto 0.5 % (0.2-1.2); Eosinophils Absolute Auto 0.2 K/mm3 (0-0.3); Eosinophils Percent Auto 2.6 % (0-4.4); Hematocrit 34.9 % (37.0-47.0); Hemoglobin 11.8 g/dL (12.0-15.0); Immature Granulocyte Absolute 0.02 K/mm3 (0.00-0.031); Immature Granulocyte Percent A 0.3 % (0-0.5); Lymphocytes Absolute Auto 2.52 K/mm3 (0.9-3.2); Lymphocytes Percent Auto 34.3 % (18.3-44.2); Mean Corpuscular HGB Conc 33.8 g/dl (32-36); Mean Corpuscular Hemoglobin 29.2 pg (26-34); Mean Corpuscular Volume 86.4 fl (80-100); Mean Platelet Volume 9.5 fl (7.4-10.4); Monocytes Absolute Auto 0.4 K/mm3 (0.1-0.6); Neutrophils Absolute Auto 4.2 K/mm3 (1.3-6.7); Neutrophils Percent Auto 57.3 % (45.5-73.1); Platelet Count Result 272 k/mm3 (150-375); Red Blood Count 4.04 M/mm3 (4.2-5.4); Red Cell Distribution Width 12.3 % (11.5-14.5); White Blood Count 7.3 K/mm3 (4.5-10.0)
[2024-09-07 12:34] LABS: Partial Thromboplastin Time 26.9 Seconds (22.3-36.8)
[2024-09-07 12:35] LABS: Alanine Aminotransferase 26 U/L (6-35); Albumin Level 4.6 g/dL (3.5-5.1); Alkaline Phosphatase 90 U/L (38-126); Anion Gap 8 mmol/L (4-12); Aspartate Amino Transferase 27 U/L (14-36); Bilirubin,Total 0.3 mg/dL (0.2-1.3); Blood Urea Nitrogen 9 mg/dL (7-17); Calcium 9.4 mg/dL (8.4-10.2); Carbon Dioxide 25 mmol/L (22-30); Chloride 107 mmol/L (98-107); Estimated CRCL calculation 110 ml/min; Estimated Glomerular Filt Rate > 60; Glucose 100 mg/dL (65-110); Potassium 4.1 mmol/L (3.4-5.0); Sodium 140 mmol/L (137-145); Total Protein 7.8 g/dL (6.3-8.2)
[2024-09-07 12:44] LABS: BEDSIDEPREGUCG Negative (Negative)
[2024-09-07 12:52] LABS: Bacteria Urine None Seen /hpf; Non Pathogenic Casts 0-2; RBC Urine >100 /hpf (0-2); Squamous Epithelial Cell Urine None Seen /hpf (Few)
--- OUTSIDE RECORDS SUMMARY | 2024-09-07 12:53 | XMS_ITS | Encounter Summary ---
Author Organization [facility] Address [address] [place] [address] Care Team Providers Care Isotope Hydrologist Name Role Phone [facility] Primary Care Pr ovider Reason for Visit [...] 09/06/2024 4:16 PM CDT Emergency ER at [facility] [address] [place] [address] Vaginal bleeding Discharge Disposition: Home or Self [...] medical care, and heating? Somewhat hard 10/03/2023 [facility] [place] [facility] Occupat ional [facility] - Occupational Stress [...] place to sleep or slept in a retirement (including now)? Yes 10/03/2023 [employer] Depression Scale Answer Date Recorded [employer] Depression Scale Total 0 10/03/2023 The thought of harming myself has occurred to me . Never 10/03/2023 Comments No Sex and Gender Information Value Date Recorded Sex Assigned at Female 09/01/2023 7:08 PM CDT Legal Sex Female 7:02 PM [employer] Gender Identity Not on file Sexual Orientation [...] two days. Please follow up with your banana room cutter within 2 days. Return to the Emergency [...] Info) Description 10/04/2024 2:15 PM CDT Appointment [facility]/ EVALUATION UNIT [facility] [facility] [address] [place] [address] documented as of this encounter Procedures Procedure [...] ) Yellow, Straw 09/06/2024 3:33 PM CDT [facility] Clarity UA Turbid(A) Clear 09/06/2024 3:33 PM CDT [facility] Glucose UA Normal Normal 09/06/2024 3:33 PM CDT [facility] Bilirubin UA Negative Negative 09/06/2024 3:33 PM CDT [facility] Ketone UA Negative Negative 09/06/2024 3:33 PM CDT [facility] Specific [place] UA 1.012 1.005 - 1.030 09/06/2024 3:33 PM CDT [facility] Blood UA 3+(A) Negative 09/06/2024 3:33 PM CDT [facility] pH UA 6.0 5.0 - 8.0 09/06/2024 3:33 PM CDT [facility] Protein UA Negative Negative 09/06/2024 3:33 PM CDT [facility] Urobilinogen UA Normal Normal mg/dL 09/06/2024 3:33 PM CDT [facility] Nitrite UA Negative Negative 09/06/2024 3:33 PM CDT [facility] Leukocyte Esterase UA Negative Negative 09/06/2024 3:33 PM CDT [facility] RBC UA >100(A) 0 - 5 # /hpf 09/06/2024 3:33 PM CDT [facility] WBC UA 0-5 0 - 5 # /hpf 09/06/2024 3:33 PM CDT [facility] Bacteria UA None Seen None Seen 09/06/2024 3:33 PM CDT [facility] Squamous Epithelial Cells 0-2 0 - 5 /hpf 09/06/2024 3:33 PM CDT [facility] Mucus UA 1+ /LPF 09/06/2024 3:33 PM CDT [facility] Urine URINE SPECIMEN OBTAINED BY CLEAN CATCH PROCEDURE / Unknown Collection / Unknown 09/06/2024 3:26 PM CDT 09/06/2024 3:26 PM CDT Narrative [facility] - 09/06/2024 3:33 PM CDT us Sb [facility] - URINALYSIS ORDERABLE S Final Result [facility] [address] [place] [address] * TYPE + SCREEN PANEL (09/06/2024 2:17 PM CDT) Pathologist [facility] ABO Rh A NEG 09/06/2024 3:00 PM CDT [facility] Comment:History checked. Antibody Screen NEG 3:00 PM CDT [facility] Blood Bank BLOOD SPECIMEN / Unknown Venipuncture / Unknown 09/06/2024 2:17 PM CDT 09/06/2024 2:23 PM CDT Sb [facility] - BLOOD BANK ORDERABLE S Final Result Performing Organization Address [facility] Co de Phone Number [facility] [address] [place] [id number] [phone] * HCG BETA BLOOD QUANTITATIVE (09/06/2024 2:17 PM CDT) Pathologist [facility] hCG Quantitative <2.42 mIU/mL 09/07/19 25 2:44 PM CDT [facility] Blood BLOOD SPECIMEN / Unknown Venipuncture / Unknown 09/06/2024 2:17 PM CDT 09/06/2024 2:23 PM CDT Narrative [facility] - 09/06/2024 2:44 PM CDT hCG [...] CHEMISTRY ORDERABLES Final Result Performing Organization Address City/[facility]/ZIP Co de Phone Number [facility] [address] [place] [address] * (ABNORMAL) BASIC METABOLIC PANEL (CALCIUM TOTAL) (09/06/2024 2:17 PM CDT) Pathologist [facility] Glucose 108(H) 70 - 99 mg/dL 09/06/2024 2:37 PM CDT [facility] Sodium 140 136 - 145 mmol/L 09/06/2024 2:37 PM CDT [facility] Potassium 3.6 3.5 - 5.1 mmol/L 09/06/2024 2:37 PM CDT [facility] Chloride 112(H) 98 - 107 mmol/L 09/06/2024 2:37 PM CDT [facility] CO2 20(L) 22 - 29 mmol/L 09/06/2024 2:37 PM CDT [facility] Calcium 9.3 8.4 - 10.4 mg/dL 09/06/2024 2:37 PM CDT [facility] Anion Gap 8 6 - 16 mmol/L 09/06/2024 2:37 PM CDT [facility] BUN 8 5.3 - 18.7 mg/dL 09/06/2024 2:37 PM CDT [facility] Creatinine 0.72 0.57 - 1.11 mg/dL 09/06/2024 2:37 PM CDT [facility] eGFR by CKD-EPI >90 >=90 mL/min/1.7 3 m2 09/06/2024 2:37 PM CDT [facility] Blood BLOOD SPECIMEN / Unknown Venipuncture / Unknown 09/06/2024 2:17 PM CDT 09/06/2024 2:23 PM CDT us Sb [facility] - CHEMISTRY ORDERABLES Final Result [facility] [address] [place] [address] * CBC W AUTO DIFFERENTIAL (09/06/2024 2:17 PM CDT) Pathologist [facility] WBC 7.5 4.0 - 10.7 x10E9/L 09/06/2024 2:26 PM CDT [facility] RBC Count 4.24 3.90 - 5.20 x10E12/L 09/06/2024 2: PM CDT [facility] Hemoglobin 12.8 11.9 - 15.8 g/dL 09/06/2024 2: PM CDT [facility] Hematocrit 36.6 34.8 - 46.1 % 09/06/2024 2: PM CDT [facility] MCV 86.3 80.0 - 98.0 fL 09/06/2024 2: PM CDT [facility] MCH 30.2 26.7 - 33.6 pg 09/06/2024 2: PM CDT [facility] MCHC 35.0 31.7 - 36.3 g/dL 09/06/2024 2: PM [facility] RDW-CV 12.2 11.3 - 14.8 % 09/06/2024 2: [facility] Platelet Count 263 150 - 420 x10E9/L 09/06/2024 2: PM [facility] MPV 9.5 7.8 - 11.4 fL 09/06/2024 2: PM CDT [facility] Neutrophil % 53.8 41.0 - 74.0 % 09/06/2024 2: PM CDT [facility] Lymphocyte % 37.6 17.0 - 47.0 % 09/06/2024 2: PM CDT [facility] Monocyte % 5.7 3.0 - 11.0 % 09/06/2024 2: PM CDT [facility] Eosinophil % 2.1 0.0 - 7.0 % 09/06/2024 2: PM CDT [facility] Basophil % 0.5 0.0 - 1.6 % 09/06/2024 2: PM CDT [facility] Immature Granulocytes % 0.3 0.0 - 1.0 % 09/06/2024 2: PM CDT [facility] Neutrophil Absolute 4.03 1.60 - 7.50 x10E9/L 09/06/2024 2: PM CDT [facility] Lymphocyte Absolute 2.82 1.00 - 4.40 x10E9/L 09/06/2024 2: PM CDT [facility] Monocyte Absolute 0.43 0.15 - 1.00 x10E9/L 09/06/2024 2:26 PM CDT [facility] Eosinophil Absolute 0.16 0.00 - 0.60 x10E9/L 09/06/2024 2:26 PM CDT [facility] Basophil Absolute 0.04 0.00 - 0.13 x10E9/L 09/06/2024 2:26 PM CDT [facility] Blood BLOOD SPECIMEN / Unknown Venipuncture / Unknown 09/06/2024 2:17 PM CDT 09/06/2024 2:23 PM CDT us Sb [facility] - HEMATOLOGY ORDERABLE S Final Result [facility] [address] [place] [address] documented in this encounter Visit Diagnoses Diagnosis Vaginal bleeding Other specified noninflammatory disorder of vagina documented in this encounter Care Teams Isotope Hydrologist Relationship Specialty Start Date End Date [facility] [address] [place] [id number] PCP - General Family Medicine 02/01/23 documented as of this encounter
--- OUTSIDE RECORDS SUMMARY | 2024-09-07 12:53 | XMS_ITS | Clinical Summary ---
Author Organization [facility] Address [address] [place] [address] Care Team Providers Care Electronic Train Control Technician Name Role Phone [facility], [facility] Primary Care Pr ovider Source Comments [facility],non-owned Affiliates and Associated Physician Practices is amultiple site organization consisting of ambulatory clinics and hospital sitesin [place], [place], [place] and [place]. This disclosure is being madepursuant to the Care Everywhere program and may not contain all information available regarding this patient. Last updated 17.[facility] Allergies No known active allergies Medications * [...] migh t be different from the original. [employer] form completed. Diapers given. 07/22/2023, [...] continue to discuss [email or web address] handout provided in [place] MOF: breast Discussed how to obtain breast [...] negative Assessment & Plan (04/15/2023 3:59 PM FISHING CAPTAIN): S/p antibiotics DIEGO sent today AMA (advanced [...] weeks Assessment & Plan (04/15/2023 3:59 PM FISHING CAPTAIN): NIPT LR LD ASA rx resent Assessment & Plan (03/19/2023 12:26 PM FISHING CAPTAIN): 1. NIPT collected 03/19/23 2. ASA 162mg QD to be started at 12w, Rx'ed on 03/19/23 Spondylosis 03/19/2023 Overview (03/19/2023): 1. Spondylosis s/p diskectomy 1. Done at [facility] in 2019 2. Anterior cervical diskectomy [...] VB Assessment & Plan (04/15/2023 3:59 PM FISHING CAPTAIN): Denies VB Assessment & Plan (03/19/2023 12:24 PM FISHING CAPTAIN): Denies vaginal bleeding Positive urine drug screen 03/19/2023 Overview (03/19/2023): Cocaine + @ NOB. 03/19/23: Pt denies Cocaine Use. Pt educated on Risks of use including abruption, hypertension and . Assessment & Plan (03/19/2023 12:19 PM FISHING CAPTAIN): 03/19/23: Pt denies Cocaine Use. Pt educated on Risks of use including abruption, hypertension and . H/O forceps delivery in prior , current ly 05/09/2014 Overview (03/19/2023): 1. H/o operative delivery 1. G2 - forceps delivery for poor maternal effort, @ 39w4d Language barrier 05/09/2014 Overview (05/09/2014): Citizen Of [place] speaking Chronic hypertension complic ating or reason [...] Assymptomtic Assessment & Plan (04/15/2023 4:00 PM FISHING CAPTAIN): -Normotensive -24 hour urine supplies provided today Assessment & Plan (03/19/2023 12:16 PM FISHING CAPTAIN): - Baseline PreE: CBC/CMP: WNL at NOB - Please provide patient with 24 hour urine collection supplies at next visit H/O: 08/20/2011 Overview (07/25/2023): 1. H/o CS x1 1. G1- pLTCS in 2006 for AOD at 6cm @ 40w 2. Successful x2 - @ [facility] 3. Done in [place], [place] [facility]. Operative note (under media tab) [...] TOLAC Assessment & Plan (04/15/2023 4:01 PM FISHING CAPTAIN): -PNC up to date -CC: vaginal discharge. Reviewed normal physiologic changes in . Reviewed vulvar care guidelines. Encouraged to seek evaluation if odor or irritation develops. Assessment & Plan (03/19/2023 12:29 PM FISHING CAPTAIN): NIPT not collected Cyst of right ovary 03/19/2023 07/25/19 Overview (03/19/2023): 02/19/23: The right ovary appears normal and contains a simple cyst consistent with a corpus luteal cyst. 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 06/28/2023 07/25/2023 Overview (06/28/2023): seeing manager electronic Obstructive sleep apnea syndrome 05/21/2020 06/28/1907/25/2023 Overview (06/28/2023): seeing manager electronic Pulmonary hypertension 05/21/2020 06/28/202307/24 Overview (06/28/2023): getting echo per manager electronic Cervical spine instability 01/31/2020 1 05/20/2022 Mixed hyperlipidemia 08/03/2019 06/28/2023 024 Steatosis of liver 01/05/2018 06/28/2023 Fibroid uterus 05/02/2014 07/25/2023 Supervision of other high-risk 08/20/2011 03/19/2023 Overview (02/05/2015): A-/I/-/-, NR Pap normal 09/05/13 GC/CT neg S/p flu GCT: 109 GBS neg 08/18 Encounters Date Type Department Care Team Description 09/06/2024 3:37 PM CDT - 09/06/2024 4:16 [place] [address] Vaginal bleeding Discharge Disposition: Home or Self Care from Last 3 Months Immunizations Immunization Administration Dates Next Due COVID [email or web address] 12+YR 30MCG/0.3mL 02/19/2023 INFLUENZA VACCINE, QUADR. (F [...] medical care, and heating? Somewhat hard 10/03/2023 [facility] [place] of Occupat ional Health - Occupational Stress [...] place to sleep or slept in a fci (including now)? Yes 10/03/2023 Otis Depression Scale Answer Date Recorded Otis Depression Scale Total 0 10/03/2023 The thought of harming myself has occurred to me . Never 10/03/2023 Comments No Sex and Gender Information Value Date Recorded Sex Assigned at Female 09/01/2023 7:08 PM CDT Legal Sex Female 7:02 PM FISHING CAPTAIN Gender Identity Not on file Sexual Orientation [...] Info) Description 10/04/2024 2:15 PM CDT Appointment [facility] MATERNAL/ EVALUATION UNIT [address] [place] [address] Health Maintenance Due Date Last Done Comments [...] this topic Medical Devices Implanted Type Area Quarry Worker Device Identifier Shelf Expiration Date Model / Serial / Lot Graft Bone 1-4mm 15ml Crsh Fsh Frzn Canc Implanted:Qty : 1 on 01/31/2020 by Gurjit Munguia MD at [facility] N/A: Spine Cervical [employer] 07/08/2022 [id number] / / [id number] Kit Bngf 20mm 12mm Infs 2xs Spne Rhbmp-2 Implanted:Qty : 1 on 01/31/2020 by Gurjit Munguia MD at [facility] N/A: Spine Cervical Medtronic Sofamor [employer]ane[employer] 11/28/2020 [id number] / / [id number] Sub Bngf Progenix Dbm Bvn Clgn Ptty 1ml Implanted:Qty : 1 on 01/31/2020 by Gurjit Munguia MD at [facility] N/A: Spine Cervical Spinal Graft [employer] 10/09/2020 [id number] / / [id number] F3d Cervical 14.5mm X12mm Implanted:Qty : 2 on 01/31/2020 by Gurjit Munguia MD at [facility] N/A: Spine Cervical [employer] 06/13/2024 [id number] / / [id number] Screw 4mm 15mm Slf-Tap Va Spne Crv Ant Implanted:Qty : 2 on 01/31/2020 by Gurjit Munguia MD at [facility] N/A: Spine Cervical Medtronic Sofamor [employer]anek [employer] [id number] / / Screw 4mm 14mm Slf-Tap Va Spne Crv Ant Implanted:Qty : 4 on 01/31/2020 by Gurjit Munguia MD at [facility] N/A: Spine Cervical Medtronic Sofamor [employer] [id number] / / Plate Lck Spne Crv Ant 40mm Atlnts Implanted:Qty : 1 on 01/31/2020 by Gurjit Munguia MD at [facility] N/A: Spine Cervical Medtronic Sofamor [employer]ane[employer] [id number] / / Procedures Procedure Name Priority Date/Time [...] IG LB+HPV APTIMA Routine 02/19/2023 9:22 AM FISHING CAPTAIN H/O: HEPATITIS C ANTIBODY Routine 02/19/2023 9:21 AM FISHING CAPTAIN H/O: from Last 3 Months or Most Recently Relevant to Health Maintenance Results * (ABNORMAL) URINALYSIS REFLEX TO MICROSCOPIC NO CULTURE (09/06/2024 3:26 PM CDT) Color UA Colorless(A ) Yellow, Straw 09/06/2024 3:33 PM CDT [facility] Clarity UA Turbid(A) Clear 09/06/2024 3:33 PM CDT [facility] Glucose UA Normal Normal 09/06/2024 3:33 PM CDT [facility] Bilirubin UA Negative Negative 09/06/2024 3:33 PM CDT [facility] Ketone UA Negative Negative 09/06/2024 3:33 PM CDT [facility] Specific [place] UA 1.012 1.005 - 1.030 09/06/2024 3:33 PM CDT [facility] Blood UA 3+(A) Negative 09/06/2024 3:33 PM CDT [facility] pH UA 6.0 5.0 - 8.0 09/06/2024 3:33 PM CDT [facility] Protein UA Negative Negative 09/06/2024 3:33 PM CDT [facility] Urobilinogen UA Normal Normal mg/dL 09/06/2024 3:33 PM CDT [facility] Nitrite UA Negative Negative 09/06/2024 3:33 PM CDT [facility] Leukocyte Esterase UA Negative Negative 09/06/2024 3:33 PM CDT [facility] RBC UA >100(A) 0 - 5 # /hpf 09/06/2024 3:33 PM CDT [facility] WBC UA 0-5 0 - 5 # /hpf 09/06/2024 3:33 PM CDT [facility] Bacteria UA None Seen None Seen 09/06/2024 3:33 PM CDT [facility] Squamous Epithelial Cells 0-2 0 - 5 /hpf 09/06/2024 3:33 PM CDT [facility] Mucus UA 1+ /LPF 09/06/2024 3:33 PM CDT [facility] Urine URINE SPECIMEN OBTAINED BY CLEAN CATCH PROCEDURE / Unknown Collection / Unknown 09/06/2024 3:26 PM CDT 09/06/2024 3:26 PM CDT Narrative [facility] - 09/06/2024 3:33 PM CDT us Sb [facility] - URINALYSIS ORDERABLE S Final Result [facility] [address] [place] [address] * TYPE + SCREEN PANEL (09/06/2024 2:17 PM CDT) ABO Rh A NEG 09/06/2024 3:00 PM CDT [facility] Comment:History checked. Antibody Screen NEG 06/09/202 5 3:00 PM CDT [facility] Blood Bank BLOOD SPECIMEN / Unknown Venipuncture / Unknown 09/06/2024 2:17 PM CDT 09/06/2024 2:23 PM CDT us Sb [facility] - BLOOD BANK ORDERABLE S Final Result [facility] [address] [phone] * CBC W AUTO DIFFERENTIAL (09/06/2024 2:17 PM CDT) WBC 7.5 4.0 - 10.7 x10E9/L 09/06/2024 2:26 PM CDT [facility] RBC Count 4.24 3.90 - 5.20 x10E12/L 09/06/2024 2:26 PM CDT [facility] Hemoglobin 12.8 11.9 - 15.8 g/dL 09/06/2024 2:26 PM CDT [facility] Hematocrit 36.6 34.8 - 46.1 % 09/06/2024 2:26 PM CDT [facility] MCV 86.3 80.0 - 98.0 fL 09/06/2024 2:26 PM CDT [facility] MCH 30.2 26.7 - 33.6 pg 09/06/2024 2:26 PM CDT [facility] MCHC 35.0 31.7 - 36.3 g/dL 09/06/2024 2:26 PM CDT [facility] RDW-CV 12.2 11.3 - 14.8 % 09/06/2024 2:26 PM CDT [facility] Platelet Count 263 150 - 420 x10E9/L 09/06/2024 2:26 PM CDT [facility] MPV 9.5 7.8 - 11.4 fL 09/06/2024 2:26 PM CDT [facility] Neutrophil % 53.8 41.0 - 74.0 % 09/06/2024 2:26 PM CDT [facility] Lymphocyte % 37.6 17.0 - 47.0 % 09/06/2024 2:26 PM CDT [facility] Monocyte % 5.7 3.0 - 11.0 % 09/06/2024 2:26 PM CDT [facility] Eosinophil % 2.1 0.0 - 7.0 % 09/06/2024 2:26 PM CDT [facility] Basophil % 0.5 0.0 - 1.6 % 09/06/2024 2:26 PM CDT [facility] Immature Granulocytes % 0.3 0.0 - 1.0 % 09/06/2024 2:26 PM CDT [facility] Neutrophil Absolute 4.03 1.60 - 7.50 x10E9/L 09/06/2024 2:26 PM CDT [facility] Lymphocyte Absolute 2.82 1.00 - 4.40 x10E9/L 09/06/2024 2:26 PM CDT [facility] Monocyte Absolute 0.43 0.15 - 1.00 x10E9/L 09/06/2024 2:26 PM CDT [facility] Eosinophil Absolute 0.16 0.00 - 0.60 x10E9/L 09/06/2024 2:26 PM CDT [facility] Basophil Absolute 0.04 0.00 - 0.13 x10E9/L 09/06/2024 2:26 PM CDT [facility] Blood BLOOD SPECIMEN / Unknown Venipuncture / Unknown 09/06/2024 2:17 PM CDT 09/06/2024 2:23 PM CDT us Sb [facility] - HEMATOLOGY ORDERABLE S Final Result [facility] [address] [place] [address] * (ABNORMAL) BASIC METABOLIC PANEL (CALCIUM TOTAL) (09/06/2024 2:17 PM CDT) [facility] Glucose 108(H) 70 - 99 mg/dL 09/06/2024 2:37 PM CDT [facility] Sodium 140 136 - 145 mmol/L 09/06/2024 2:37 PM CDT [facility] Potassium 3.6 3.5 - 5.1 mmol/L 09/06/2024 2:37 PM CDT [facility] Chloride 112(H) 98 - 107 mmol/L 09/06/2024 2:37 PM CDT [facility] CO2 20(L) 22 - 29 mmol/L 09/06/2024 2:37 PM CDT [facility] Calcium 9.3 8.4 - 10.4 mg/dL 09/06/2024 2:37 PM CDT [facility] Anion Gap 8 6 - 16 mmol/L 09/06/2024 2:37 PM CDT [facility] BUN 8 5.3 - 18.7 mg/dL 09/06/2024 2:37 PM CDT [facility] Creatinine 0.72 0.57 - 1.11 mg/dL 09/06/2024 2:37 PM CDT [facility] eGFR by CKD-EPI >90 >=90 mL/min/1.7 3 m2 09/06/2024 2:37 PM CDT [facility] Blood BLOOD SPECIMEN / Unknown Venipuncture / Unknown 09/06/2024 2:17 PM CDT 09/06/2024 2:23 PM CDT us Sb [facility] - CHEMISTRY ORDERABLES Final Result Performing Organization Address City/State/[facility] Co de Phone Number [facility] [address] [place] [address] * HCG BETA BLOOD QUANTITATIVE (09/06/2024 2:17 PM CDT) hCG Quantitative <2.42 mIU/mL 09/07/19 25 2:44 PM CDT [facility] Blood BLOOD SPECIMEN / Unknown Venipuncture / Unknown 09/06/2024 2:17 PM CDT 09/06/2024 2:23 PM CDT Narrative [facility] - 09/06/2024 2:44 PM CDT hCG [...] CHEMISTRY ORDERABLES Final Result Performing Organization Address [facility] Co de Phone Number [facility] [address] [place] [phone] * HIV-1 HIV-2 ANTIBODY + HIV P24 AG PANEL (07/22/2023 4:09 PM CDT) HIV1/2 Ab + P24 Ag Non Reactive Non Reactive 07/22/2023 5:03 PM CDT [facility] Blood BLOOD SPECIMEN / Unknown Venipuncture / Unknown 07/22/2023 4:09 PM CDT 07/22/2023 4:19 PM CDT Narrative [facility] - 07/22/2023 5:03 PM CDT No Laboratory evidence of HIV infection. Sadia Jewell MD LAB - CHEMISTRY ORDERABLES Final Result Performing Organization Address [facility] de Phone Number [facility] [address] [place] [phone] * PAP IG LB+HPV APTIMA (02/19/2023 9:22 AM FISHING CAPTAIN) Diagnosis Comment 02/24/2023 11:06 PM FISHING CAPTAIN [facility] ([facility]) Comment:NEGATIVE FOR INTRAEP ITHELIAL LESION OR MALIGNANCY. Specimen Adequacy Comment 023 11:06 PM FISHING CAPTAIN [facility] ([facility]) Comment: Satisfactory for evaluation. Endocervical and/or squamous metaplastic cells (endocervical component) are present. Performed by Comment 02/24/2023 11:06 PM FISHING CAPTAIN [facility] ([facility]) Comment:Yue Horne, [employer]otec hnologist (ASCP) Comment . 02/24/2023 11:06 PM FISHING CAPTAIN [facility] ([facility]) Note Comment 02/24/2023 11:06 PM FISHING CAPTAIN [facility] ([facility]) Comment: The Pap smear is a screening test designed to aid in the detection of premalignant and malignant conditions of the uterine cervix. It is not a diagnostic procedure and should not be used as the sole means of detecting cervical cancer. Both false-positive and false-negative reports do occur. [facility] CPT Code Automation Comment 02/24/2023 11:06 PM FISHING CAPTAIN [facility] ([facility]) Comment: This liquid based ThinPrep(R) pap test was screened with the use of an image guided system. Human papillomavirus Aptima Negative Negative 02/24/2023 11:06 PM [facility] ([facility]) Comment: This nucleic acid amplification test detects fourteen high-risk HPV types (16,18,31,33,35,39,45,51,52,56,58,59,66,68) without differentiation. Pathology/Cytolo gy PART OF UTERINE CERVIX / Unknown Collection / Unknown 02/19/2023 9:22 AM FISHING CAPTAIN 02/19/2023 10:14 AM FISHING CAPTAIN Narrative [facility] ([facility]) - 02/24/2023 11:06 PM FISHING CAPTAIN Performed at: 01 - [facility] [employer] [address] [place] [id number] Construction Helper: Carlos Alonso MD, Phone: [phone] Performed at: 02 - [address] [id number] Construction Helper: Emiliana Watson MD, Phone: [phone] Performed at: 03 - [address] [id number] Construction Helper: Emiliana Watson MD, Phone: [phone] Specimen Comment: No. of containers..01 ThinPrep Vial us Israel Choudhury MD LAB - PATHOLOGY/CYTOLOGY ORDERAB LES Final Result [facility] ([facility]) [address] [place] [address] * HEPATITIS C ANTIBODY (02/19/2023 9:21 AM FISHING CAPTAIN) HCV Antibody Screen Non Reactive Non Reactive 02/19/2023 10:57 AM FISHING CAPTAIN [facility] Blood BLOOD SPECIMEN / Unknown Venipuncture / Unknown 02/19/2023 9:21 AM FISHING CAPTAIN 02/19/2023 9:49 AM FISHING CAPTAIN Narrative [facility] - 02/19/2023 10:57 AM FISHING CAPTAIN Non Reactive - Antibodies to Hepatitis C virus (HCV) were not detected, result does not exclude early acute HCV infection. Israel Choudhury MD LAB - CHEMISTRY ORDERABLES Final Result [facility] [address] [place] [address] from Last 3 Months or Most Recently [...] 10:44 AM 09/10/2011 2:21 AM Care Teams Electronic Train Control Technician Relationship Specialty Start Date End Date [facility] [address] [place] [address] PCP - General Family Medicine 02/01/23
[2024-09-07 12:54] LABS: Add Urine Microscopic? YES; Appearance Urine Cloudy (Clear); Bilirubin Urine Negative (Negative); Blood Urine 3+ (Negative); Color Urine Red (Yellow); Glucose Urine UA Negative (Negative); Ketones Urine Negative (Negative); Leukocyte Esterase Ur 1+ LEU/UL (Negative); Nitrate Urine Negative (Negative); Protein Urine 1+ mg/dL (Negative); Specific Grav Ur 1.015 (1.001-1.035); Urobilinogen Urine 0.2 mg/dL (<2.0); pH Urine 6.5 (5.0-9.0)
[2024-09-07] MEDS: KETOROLAC 30 MG/ML VIAL (*BKC) IM (13:20)
[2024-09-07 13:39] VITALS: BP 129/90; PULSE 61; RESP 16; O2SAT 100
== END 2024-09-07 13:41 | disposition home or self-care (01) ==
PROVIDERS: Emergency Provider Nurse Practitioner Family
DX: N93.8 Other specified abnormal uterine and vaginal bleeding (principal)
CPT/HCPCS: 36415; 80053; 81001; 81025; 85025; 85610; 85730; 86850; 86900; 86901; 87086; 96372; 99284; J1885